=== PATIENT | female | born 1975 | race African-American/Black ===

== ENCOUNTER 2021-04-09 21:16 | Observation (INO) | payer BC, SELFPAY ==
--- NOTE | ~2021-04-09 | CT_ITS ---
EXAMINATION: CTA chest PE protocol DATE: 04/10/2021 03:09 INDICATION: Shortness of breath, COVID 19 positive TECHNIQUE: Computed tomography angiography (CTA) of the chest was performed with 100 mL Omnipaque-350 intravenous contrast timed to evaluate the pulmonary arteries. Coronal maximum intensity projection 3D-reconstructions were created by the technologist. The dose-length product (DLP) was 380.93 mGy-cm. Automated exposure control and iterative reconstruction technique were employed. COMPARISON: None. FINDINGS: The pulmonary arteries are well-opacified. No pulmonary embolism is identified. There are m inimal dependent airspace opacities of the lungs. There is no pleural effusion or pneumothorax. No pa thologically enlarged thoracic lymph nodes are identified. The heart size is normal. IMPRESSION: 1. No pulmonary embolus. 2. Minimal dependent opacities, likely atelectasis. Reviewed, dictated and finalized at location A.
--- NOTE | ~2021-04-09 | XR_ITS ---
EXAMINATION: XR chest 1V portable DATE: 04/09/2021 21:34 INDICATION: Arrhythmia. COVID-19 positive. TECHNIQUE: A single frontal view of the chest was obtained. COMPARISON: Chest 2 views 11/28/2017 FINDINGS: The chest demonstrates clear lungs without pneumonia, pleural effusion, or pneumothorax. Th e heart size is normal. IMPRESSION: 1. No acute cardiopulmonary disease. Reviewed, dictated and finalized at location A.
[2021-04-09 21:20] VITALS: BP 114/80; PULSE 110; RESP 18; TEMP 36.2; O2SAT 99
[2021-04-09 22:20] LABS: Basophils Absolute Auto 0.1 K/mm3 (0.0-0.1); Basophils Percent Auto 0.6 % (0.2-1.2); Eosinophils Absolute Auto 0.2 K/mm3 (0-0.3); Eosinophils Percent Auto 1.6 % (0-4.4); Hematocrit 37.1 % (37.0-47.0); Hemoglobin 12.7 g/dL (12.0-15.0); Immature Granulocyte Absolute 0.03 K/mm3 (0.00-0.031); Immature Granulocyte Percent A 0.3 % (0-0.5); Lymphocytes Absolute Auto 3.28 K/mm3 (0.9-3.2); Lymphocytes Percent Auto 30.9 % (18.3-44.2); Mean Corpuscular HGB Conc 34.2 g/dl (32-36); Mean Corpuscular Hemoglobin 29.5 pg (26-34); Mean Corpuscular Volume 86.3 fl (80-100); Mean Platelet Volume 11.1 fl (7.4-10.4); Monocytes Absolute Auto 0.8 K/mm3 (0.1-0.6); Monocytes Percent Auto 7.6 % (2.6-8.5); Neutrophils Absolute Auto 6.3 K/mm3 (1.3-6.7); Platelet Count Result 297 k/mm3 (150-375); Red Cell Distribution Width 12.1 % (11.5-14.5); White Blood Count 10.6 K/mm3 (4.5-10.0)
[2021-04-09 22:29] LABS: Anion Gap 13 mmol/L (8-16); Blood Urea Nitrogen 17 mg/dL (7-17); Calcium 8.7 mg/dL (8.4-10.2); Carbon Dioxide 23 mmol/L (22-30); Chloride 99 mmol/L (98-107); Estimated CRCL calculation 67 ml/min; Estimated Glomerular Filt Rate > 60; Glucose 144 mg/dL (65-110); Potassium 3.9 mmol/L (3.4-5.0); Sodium 135 mmol/L (137-145)
[2021-04-09 22:31] LABS: INR 0.9; Prothrombin Time 12.2 Seconds (11.1-14.7)
[2021-04-09 22:32] LABS: Partial Thromboplastin Time 21.3 SECONDS (22.3-36.8)
[2021-04-09 22:40] LABS: Troponin I < 0.012 ng/mL (0.000-0.034)
[2021-04-10] VITALS (18 sets, daily range): BP systolic 117–160; BP diastolic 74–110; PULSE 76–99; RESP 12–20; TEMP 36.2–36.8; O2SAT 98–100
--- NOTE | 2021-04-10 01:53 | ED.GENADULT ---
HPI - General Adult General Chief complaint: Arrhythmia/Palpitations Stated complaint: COVID+, c/o irreg heartbeat Time Seen by Provider: 04/10/21 00:59 History of Present Illness HPI narrative: Patient is a 45-year-old female who presents ER with concerns for rapid heart rate. She reports that she had been feeling weak throughout the day which is recurred since being diagnosed with COVID-19 on 04/02/2021. She then used her pulse oximeter and stated that her heart rate was around 190 bpm. She reports a friend came over and checked her heart rate with her own pulse oximeter and picked up a similar number. Patient did not feel as if her heart was racing. She is having no chest pain or pressure. She is not particularly short of breath. Upon arrival here patient's heart rate was not tachycardic and she felt no different. Patient was vaccinated against COVID-19. She is started no new medications. She did receive antibody therapy last week. Related Data Home Medications Medication Instructions Recorded Confirmed gabapentin 04/10/21 semaglutide [Ozempic] mg SUBCUT 04/10/21 Allergies Allergy/AdvReac Type Severity Reaction Status Date / Time No Known Allergies Allergy Verified 04/10/21 00:45 Review of Systems Review of Systems: All systems reviewed & are unremarkable except as noted in HPI and below Constitutional: Constitutional: Denies chills, Reports fatigue and Denies fever(s) ENT: Denies nasal congestion and Denies sore throat Cardiovascular: Cardiovascular: Denies chest pain, Reports rapid heart rate and Denies radiating jaw, neck or arm pain Respiratory: Respiratory: Denies cough, Denies dyspnea and Denies wheezing Gastrointestinal: Gastrointestinal: Denies abdominal pain, Denies nausea and Denies vomiting Musculoskeletal: Musculoskeletal: Denies back pain and Denies muscle cramps PMFSH Past Medical History Medical History (Updated 04/10/21 @ 01:59 by José Miguel Rossi MD) Healthy female adult Surgical History Surgical History (Updated 04/10/21 @ 01:57 by José Miguel Rossi MD) H/O tubal ligation Social History Social History (Updated 04/10/21 @ 01:57 by José Miguel Rossi MD) Smoking status: Never smoker Exam Narrative: GENERAL: Well-appearing, well-nourished, and in no acute distress. HEAD: Normocephalic, atraumatic. EYES: PERRL and EOMI. CHEST: Clear to auscultation. No respiratory distress. HEART: Regular rate and rhythm. Normal peripheral pulses. ABDOMEN: Soft, nontender, nondistended. EXTREMITIES: Normal range of motion. No edema. SKIN: Warm, dry, no rash. NEURO: Alert and oriented x3. PSYCH: Normal mood and affect. Course Vital Signs Vital signs: Vital Signs Temperature 97.2 F L 04/09/21 21:20 Pulse Rate 110 H 04/09/21 21:20 Respiratory Rate 18 04/09/21 21:20 Blood Pressure 114/80 04/09/21 21:20 Pulse Oximetry 99 04/09/21 21:20 Temperature 97.2 F L 04/09/21 21:20 Pulse Rate 83 04/10/21 00:42 Respiratory Rate 14 04/10/21 00:42 Blood Pressure 130/94 H 04/10/21 00:42 Pulse Oximetry 99 04/10/21 00:42 Medical Decision Making Vital Signs Vital Signs: Vital Signs Temperature 97.2 F L 04/09/21 21:20 Pulse Rate 110 H 04/09/21 21:20 Respiratory Rate 18 04/09/21 21:20 Blood Pressure 114/80 04/09/21 21:20 Pulse Oximetry 99 04/09/21 21:20 Temperature 97.2 F L 04/09/21 21:20 Pulse Rate 83 04/10/21 00:42 Respiratory Rate 14 04/10/21 00:42 Blood Pressure 130/94 H 04/10/21 00:42 Pulse Oximetry 99 04/10/21 00:42 Lab Data Result diagrams: 04/09/21 22:13 04/09/21 22:14 Labs: Lab Results 04/09/21 04/09/21 04/09/21 Range/Units 22:13 22:14 22:14 WBC 10.6 H (4.5-10.0) K/mm3 RBC 4.30 (4.2-5.4) M/mm3 Hgb 12.7 (12.0-15.0) g/dL Hct 37.1 (37.0-47.0) % MCV 86.3 (80-100) fl MCH 29.5 (26-34) pg MCHC 34.2 (32-36) g/dl RDW 12.1 (11.5-14.5)
--- NOTE | 2021-04-10 02:22 | ECG_ITS ---
Measurements Intervals [place] Rate: 128 P: -33 WV: 187 QRS: 140 QRSD: 97 T: 153 QT: 301 QTc: 440 Interpretive Statements SUPRAVENTRICULAR TACHYCARDIA LIMB LEAD REVERSAL BASELINE ARTIFACT- I, III, AVL, V1-V4 ABNORMAL ECG Electronically Signed On 04-10-2021 7:32:03 CDT by Jacky Montesinos D.O.
--- NOTE | 2021-04-10 04:30 | PC.NURSE ---
went in to discharge pt, after being taken off monitor and having stepped out for a moment pt stated her apple watch said her heart rate was 189. pt placed back on monitor heart was 189. MELONIE Plata made aware, no new orders at this time.
[2021-04-10] MEDS: METOPROLOL TARTRATE 25 MG TABLET PO ×2 (05:59→21:56)
--- NOTE | 2021-04-10 08:05 | ADMGEN ---
This patient, Melissa Batres, was admitted to [facility] Surg Room 321-01. Patient/family oriented to hospital policies and general routines including ID bracelet, bed and alarms, visiting hours, pain management, procedures, bathroom and other care routines, personal items, smoking policy, room service/diet, and visiting hours. Information on how to activate the Rapid Response Team has been discussed. Patient/Family are encouraged to report perceived risks to care and to ask questions if they do not understand what they are told or what they should do. Report received from JONATHAN Pollack.
--- NOTE | 2021-04-10 08:17 | PM.IMHP ---
H&P: HPI History of Present Illness Date/Time: 04/10/21 08:17 This is a very pleasant 45-year-old woman with past medical history of type 2 diabetes mellitus and diabetic neuropathy, presented to the emergency department last night for evaluation of rapid heart rate. She tells me that she was diagnosed with COVID on 04/02 when she had some headache and sinus pressure. She was previously vaccinated against COVID. On 04/04 did receive monoclonal antibody for COVID. She was also on a short course of steroids (which she finished) and doxycycline which he took for 4 days. She tells me that a pulse oximeter at home and checked her saturation which was in the upper 90s, however it read her heart rate to be around 200. She was not symptomatic and did not feel any palpitations. Per emergency department report, when she arrived to the ED, her initial heart rate was 110 and regular but was as low as 80s. She was to be discharged, however she did spikes tachycardia on the monitor, an EKG was done and showed supraventricular tachycardia. She did a CTA of the chest that ruled PE, but did show minimal dependent opacities possibly atelectasis versus related to her COVID. Cardiology was consulted. Recommended admission for monitoring and echocardiogram. Initiation metoprolol 25 mg b.i.d. which she received the 1st dose of. She responded and currently heart rate is in the 80s when she got to her room and is regular. Chief Complaint: Rapid heart rate Review of Systems Review of Systems: All systems reviewed & are unremarkable except as noted in HPI and below [facility] Past Medical History Medical History Diabetes mellitus type 2, controlled Diabetic neuropathy Healthy female adult Supraventricular tachycardia Surgical History Surgical History H/O tubal ligation Family History Family History Father Cerebrovascular accident Heart attack Hypertension History of open heart surgery Mother Hypertension Diabetes mellitus Social History Social History Smoking status: Never smoker Alcohol intake: current Drinks per week: 1 Substance use: never Substance use type: does not use Spiritual care concerns: No Meds Home Medications and Allergies Home Medications Medication Instructions Recorded Confirmed Type doxycycline hyclate 100 mg PO BID 04/10/21 04/10/21 History gabapentin 200 mg PO HS 04/10/21 04/10/21 History metoprolol tartrate 25 mg PO Q12HR PRN #30 tablet 04/10/21 Rx semaglutide [Ozempic] 0.25 mg SUBCUT WEEKLY 04/10/21 04/10/21 History Allergies Allergy/AdvReac Type Severity Reaction Status Date / Time No Known Allergies Allergy Verified 04/10/21 08:08 Vital Signs Vital Signs - 24 hr 04/09/21 21:20 04/10/21 00:42 04/10/21 01:54 Temperature 97.2 F L Pulse Rate 110 H 83 84 Respiratory Rate 18 14 14 Blood Pressure 114/80 130/94 H 123/92 H Pulse Oximetry 99 99 100 04/10/21 03:11 04/10/21 04:10 04/10/21 05:59 Temperature Pulse Rate 87 99 89 Respiratory Rate 16 20 Blood Pressure 142/93 H 127/96 H Pulse Oximetry 100 99 04/10/21 06:17 04/10/21 06:54 04/10/21 07:35 Temperature Pulse Rate 86 80 80 Respiratory Rate 20 12 16 Blood Pressure 151/100 H 148/106 H 160/110 H Pulse Oximetry 100 99 98 04/10/21 08:11 Temperature Pulse Rate Respiratory Rate 16 Blood Pressure 160/110 H Pulse Oximetry 98 Exam Narrative: Gen: Alert, NAD Abd: Soft, NT, ND Heart: RRR Lungs: CTAB Ext: No lower extremity edema Skin: No abnormality Eyes: anicteric ENT: MMM H&P: Results Labs Labs: Short CBC 04/09/21 Range/Units 22:13 WBC 10.6 H (4.5-10.0) K/mm3 Hgb 12.7 (12.0-15.0) g/dL Hct 37.1 (37.0-47.0) % Plt Count 297 (150-375) k/mm3 BMP
--- NOTE | 2021-04-10 08:26 | ECG_ITS ---
Measurements Intervals [place] Rate: 78 P: 58 [place]: 177 QRS: 56 QRSD: 84 T: 72 QT: 402 QTc: 458 Interpretive Statements SINUS RHYTHM NORMAL ECG Electronically Signed On 04-10-2021 8:58:15 CDT by Jacky Montesinos D.O.
--- NOTE | 2021-04-10 09:50 | PM.CNCAR ---
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 However, we have no documentation of more rapid tachyarrhythmia as reported around 170-200 beats per minute. Patient minimally symptomatic without associated palpitations, near-syncope, syncope, chest pain, or shortness of breath. She had 1 episode 1-2 years ago previously evaluated by Cardiology no other diagnosis or follow-up thereafter. Discussed management options including daily medical therapy with metoprolol or other AV shelton blocking agent to suppress recurrence, observation with p.r.n. metoprolol as well as management strategies including Valsalva maneuvers for termination of arrhythmia. We also discussed referral to electrophysiology for ablation in hopes of cure. Given patient's tolerance and infrequent recurrence she is not interested in ablation or daily medical therapy. Electrolytes stable, troponin negative, TSH pending. SVT certainly could be triggered due to COVID-19 status, however, she had SVT predating COVID. She was educated at length on how to perform Valsalva maneuvers in hopes to terminate arrhythmia at home if recurrence of SVT. She verbalized understanding and agreed with plan of care. All questions answered to her satisfaction. - 2D echocardiogram has been ordered. Offered outpatient follow-up and echo, however, she wishes to stay and have this study completed prior to discharge. We will review with recommendations as appropriate. Her clinical picture and examination are not suggestive of significant valvular heart disease or significant LV dysfunction and I do not expect the results of her Echocardiogram to alter her disposition. Disposition per hospitalist service provided she remains in sinus rhythm without sustained SVT. Follow-up in the office in 1-2 months. Patient verbalized understanding of the above recommendations. (2) COVID-19: Code(s): U07.1 - COVID-19 Status: Acute Assessment and Plan: Reason diagnosis COVID-19. Patient appears clinically stable. Management and disposition per hospitalist service. She is not in respiratory distress. (3) Diabetes mellitus type 2, controlled: Code(s): E11.9 - Type 2 diabetes mellitus without complications Status: Acute Assessment and Plan: Management per hospitalist service. (4) HTN (hypertension): Code(s): I10 - Essential (primary) hypertension Status: Acute Assessment and Plan: BP quite elevated. Recommend initiation of antihypertensive although patient reluctant to take medications. Defer to primary service in this regard for management. History of Present Illness History of Present Illness Consult date/time: Date of service: 04/10/21 09:50 Cardiology consultation at the request of Dr. Alexander of the [facility] service for opinion regarding SVT. Requesting physician: Dorota Alexander MD Consult reason: Other (Supraventricular tachycardia) Reason For Visit: SVT, COVID + Narrative: Patient is a very pleasant 45-year-old Afro-[place] female with past medical history significant for type 2 diabetes mellitus with diabetic neuropathy and remote history of SVT was diagnosed with COVID 04/02/2021 with symptoms of headache and sinus pressure/congestion. It is reported she was previously vaccinated for COVID-19. She had received monoclonal antibodies as well as steroids and antibiotics. Her oxygen saturations have been fine however she also noted heart rate was 200 beats per minute on her Apple watch but did not feel worsening shortness of breath, chest pain, palpitation, and near-syncope, syncope. As such she presented to the emergency department in an
[2021-04-10 10:30] LABS: Glucose Point of Care 119 mg/dl (65-105)
[2021-04-10 12:17] LABS: Glucose Point of Care 169 mg/dl (65-105)
--- NOTE | 2021-04-10 13:00 | ECHO_ITS ---
Patient Info Name: Melissa Batres Age: 45 years : 1975 Gender: Female Ht: 65 in Wt: 218 lbs BSA: 2.17 m2 HR: 90 bpm BP: 128 / 78 mmHg Heart Rhythm: Sinus Rhythm Technical Quality: Good Exam Date: 04/10/2021 3:53 PM Exam Location: [facility] Pulmonary Exam Room: 321 Patient Status: Inpatient Admit Date: 04/10/2021 Staff Ordering Physician: Dorota Alexander MD Campground Caretaker: Karoline Rice RDCS Attending Provider: Dorota Alexander MD Referring Physician: Benjamin ARNOLD; Exam Type: CA echo doppler color flow Study Info Indications - COVID I47.1 - Supraventricular tachycardia Complete two-dimensional, color flow and Doppler transthoracic echocardiogram is performed. Summary 1. Complete two-dimensional, color flow and Doppler transthoracic echocardiogram is performed. 2. Left ventricular chamber dimension is normal. 3. Left ventricular systolic function is normal, estimated at 65-70%. 4. There is no increased left ventricular wall thickness. 5. The left ventricular diastolic function is grade I diastolic dysfunction. 6. There is trace tricuspid valve regurgitation. 7. Unable to estimate PA systolic pressure due to poor spectral resolution of tricuspid regurgitant jet velocity. Left Ventricle Left ventricular chamber dimension is normal. Left ventricular systolic function is normal, estimated at 65-70%. There is no increased left ventricular wall thickness. The left ventricular diastolic function is grade I diastolic dysfunction. Right Ventricle Right ventricular chamber dimension is normal. Right ventricular systolic function is normal. Left Atria Left atrial chamber dimension is normal. Right Atria Right atrial chamber dimension is normal. Aortic Valve The aortic valve is trileaflet. There is no aortic valve stenosis. There is no aortic valve regurgitation. Pulmonic Valve The pulmonic valve is normal. There is trace pulmonic regurgitation. Mitral Valve The mitral valve has thickened leaflets. There is trace mitral valve regurgitation. The mitral valve annulus is mildly calcified. Tricuspid Valve The tricuspid valve leaflets are normal. There is trace tricuspid valve regurgitation. Unable to estimate PA systolic pressure due to poor spectral resolution of tricuspid regurgitant jet velocity. Pericardium/Pleural The pericardium appears normal. There is trivial pericardial effusion. Inferior Vena Cava Normal inferior vena cava with >50% collapse upon inspiration consistent with normal right atrial pressure, 5 mmHg. Aorta The aortic root size at the sinus of Valsalva is normal. Left Ventricular Outflow Tract Name Value Normal LVOT 2D LVOT Diameter 2.0 cm LVOT Doppler LVOT Peak Gradient 5 mmHg LVOT Mean Gradient 3 mmHg LVOT VTI 21 cm LVOT VTI/AV VTI Ratio 0.9 LVOT Stroke Volume 62 ml LVOT CO 13.9 l/min LVOT CI 6.4 l/min/
[2021-04-10 13:14] LABS: Hemoglobin A1C 6.4 % (<5.7)
[2021-04-10] MEDS: DOXYCYCLINE HYCLATE 100 MG TABLET PO ×3 (14:30→21:57)
[2021-04-10] MEDS: ENOXAPARIN 40 MG/0.4 ML SYRINGE SUB-Q (14:30)
[2021-04-10] MEDS: SODIUM CHLORIDE 0.9% IV 1,000 ML 100 ML IV CONT (14:30)
--- NOTE | 2021-04-10 14:41 | PC.NURSE ---
PT abx rescheduled by pharmacy during administration. Tried to undo documentation, but unable to. Pt given only one dose of 100 mg doxycycline at 1430.
[2021-04-10 17:38] LABS: Glucose Point of Care 93 mg/dl (65-105)
[2021-04-10] MEDS: GABAPENTIN 100 MG CAPSULE 200 MG PO (21:56)
[2021-04-10 22:57] LABS: Glucose Point of Care 102 mg/dl (65-105)
[2021-04-11] VITALS (7 sets, daily range): BP systolic 107–144; BP diastolic 70–89; PULSE 71–90; RESP 14–20; TEMP 36.3–36.7; O2SAT 99–100
[2021-04-11] MEDS: SODIUM CHLORIDE 0.9% IV 1,000 ML 100 ML IV CONT (06:32)
[2021-04-11 07:18] LABS: Basophils Percent Auto 0.4 % (0.2-1.2); Eosinophils Absolute Auto 0.2 K/mm3 (0-0.3); Eosinophils Percent Auto 3.2 % (0-4.4); Hematocrit 34.4 % (37.0-47.0); Hemoglobin 11.8 g/dL (12.0-15.0); Immature Granulocyte Absolute 0.02 K/mm3 (0.00-0.031); Immature Granulocyte Percent A 0.3 % (0-0.5); Lymphocytes Absolute Auto 2.17 K/mm3 (0.9-3.2); Lymphocytes Percent Auto 28.6 % (18.3-44.2); Mean Corpuscular HGB Conc 34.3 g/dl (32-36); Mean Corpuscular Hemoglobin 29.2 pg (26-34); Mean Corpuscular Volume 85.1 fl (80-100); Mean Platelet Volume 11.3 fl (7.4-10.4); Monocytes Absolute Auto 0.6 K/mm3 (0.1-0.6); Monocytes Percent Auto 7.5 % (2.6-8.5); Neutrophils Absolute Auto 4.6 K/mm3 (1.3-6.7); Platelet Count Result 290 k/mm3 (150-375); Red Blood Count 4.04 M/mm3 (4.2-5.4); Red Cell Distribution Width 11.8 % (11.5-14.5); White Blood Count 7.6 K/mm3 (4.5-10.0)
[2021-04-11 08:31] LABS: Anion Gap 9 mmol/L (8-16); Blood Urea Nitrogen 11 mg/dL (7-17); Calcium 8.5 mg/dL (8.4-10.2); Carbon Dioxide 25 mmol/L (22-30); Chloride 101 mmol/L (98-107); Estimated CRCL calculation 91 ml/min; Estimated Glomerular Filt Rate > 60; Glucose 122 mg/dL (65-110); Potassium 4.4 mmol/L (3.4-5.0); Sodium 135 mmol/L (137-145)
[2021-04-11 09:37] LABS: Glucose Point of Care 117 mg/dl (65-105)
[2021-04-11] MEDS: ENOXAPARIN 40 MG/0.4 ML SYRINGE SUB-Q (09:41)
[2021-04-11] MEDS: DOXYCYCLINE HYCLATE 100 MG TABLET PO (09:41)
[2021-04-11] MEDS: METOPROLOL TARTRATE 25 MG TABLET PO (09:41)
[2021-04-11 11:59] LABS: Glucose Point of Care 102 mg/dl (65-105)
--- NOTE | 2021-04-11 14:05 | PM.DS ---
DS: Admitting Diagnosis Admitting Diagnosis Supraventricular tachycardia DS: Summary Hospital Course Reason for hospitalization: Chief Complaint: Rapid heart rate Hospital Course: This pleasant 45-year-old lady with past medical history of non insulino dependent diabetes mellitus and diabetic neuropathy, presented to the emergency department on 04/09 for evaluation of rapid heart rate. She had been previously diagnosed with COVID on 04/02 after experiencing some headache and sinus pressure, despite being vaccinated against COVID. On 04/04 she was treated with monoclonal antibody against COVID. She also completed a short course of steroids and doxycycline which she took for 4 days. On a home pulse oximeter she checked her saturation to be in the upper 90s, and her heart rate to be around 200. She was not symptomatic and did not feel any palpitations. Per emergency department report, when she arrived to the ED, her initial heart rate was 110 and regular but was as low as 80s. She was to be discharged, however she did register tachycardia on the monitor, an EKG was done and showed supraventricular tachycardia. She did a CTA of the chest that ruled PE, but did show minimal dependent opacities possibly atelectasis versus related to her COVID. Cardiology was consulted. Recommended admission for monitoring and echocardiogram. She was started on metoprolol 25 mg b.i.d. which she has been tolerating well. She responded and currently heart rate is in the 80s on average and regular. There have been no additional telemetry events overnight. She was evaluated by cardiology this AM and deemed to be safe for discharge with a follow up in 4-6 weeks. Patient doctors with the [facility] group and would gladly follow up with a cardiology belonging to their group. 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 However, we have no documentation of more rapid tachyarrhythmia as reported around 170-200 beats per minute. Patient minimally symptomatic without associated palpitations, near-syncope, syncope, chest pain, or shortness of breath. She had 1 episode 1-2 years ago previously evaluated by Cardiology no other diagnosis or follow-up thereafter. Discussed management options including daily medical therapy with metoprolol or other AV shelton blocking agent to suppress recurrence, observation with p.r.n. metoprolol as well as management strategies including Valsalva maneuvers for termination of arrhythmia. We also discussed referral to electrophysiology for ablation in hopes of cure. Given patient's tolerance and infrequent recurrence she is not interested in ablation or daily medical therapy. Electrolytes stable, troponin negative, TSH pending. SVT certainly could be triggered due to COVID-19 status, however, historically she had SVT predating COVID. She was educated at length on how to perform Valsalva maneuvers in hopes to terminate arrhythmia at home if recurrence of SVT. She verbalized understanding and agreed with plan of care. All questions answered to her satisfaction. Time spent discussing smoking cessation with patient: more than 10 minutes Status at Discharge Functional status at discharge: independent ambulation Overall status at discharge: patient is back to baseline Time Spent with Patient Time attestation: Total time spent providing and/or coordinating discharge services: Time spent: Less than 30 minutes Exam Narrative: Gen: Alert, NAD Abd: Soft, NT, ND Heart: RRR Lungs: CTAB Ext: No lower extremity edema Skin: No abnormality Eyes: anicteric ENT: MMM DS: Data Data Completed and Pending Labs on day of discharge: Labs from last 24 hours 04/11/21 04/11/21 04/11/21 11:36 07:33 06:50 WBC 7.6 RBC 4.04 L Hgb 11.8 L Hct 34.4 L MCV 85.1 MCH 29.2 MCHC 34.3 RDW 11.8 Plt
== END 2021-04-11 17:10 | disposition home or self-care (01) ==
LOC: ANHED 04-10 06:07 → ANH3MEDSUR 04-10 07:15
PROVIDERS: Emergency Medicine; Internal Medicine Nephrology; Admitting Provider Internal Medicine; Emergency Provider Emergency Medicine; Visit Provider Internal Medicine
DX: I47.1 Supraventricular tachycardia (principal); U07.1 COVID-19; E11.40 Type 2 diabetes mellitus with diabetic neuropathy, unspecified; J32.9 Chronic sinusitis, unspecified
CPT/HCPCS: 36415; 71045; 71275; 80048; 82948; 83036; 84443; 84484; 85025; 85610; 85730; 93005; 93306; 96360; 96361; 96372; 99285; A9270; G0378; J1650; J7030; Q9967

== ENCOUNTER 2024-10-22 17:50 | Emergency (ER) | payer BC, SELFPAY ==
--- OUTSIDE RECORDS SUMMARY | 2024-10-22 17:52 | XMS_ITS | CONTINUITY OF CARE DOCUMENT ---
Author Name tracie hodges Address Unknown Organization [facility] Office Address [address] [place] [address] Phone [phone] Care Team Providers Care Academic Affairs Vice President Name Role Phone Sandip WILSON, Mohammad Unavailable [phone] Alphonso ALVAREZ MD, Miles Unavailable Alphonso ALVAREZ MD, Miles Unavailable [phone] PROBLEMS Condition Status Date Provider Notes Palpitations active Romeo Bryson INSURANCE PROVIDERS Payer name Policy type / Coverage type [place] red green party ID [facility]UE [facility] [id number] TREATMENT PLAN Date Name Complete Echo
--- OUTSIDE RECORDS SUMMARY | 2024-10-22 17:53 | XMS_ITS | Patient Health Summary ---
Author Organization [facility] [employer] Address [address] [place] [address] Care Team Providers Care Jeep Driver Name Role Phone Derick Mittal MD Primary Care Provider Note from [facility],non-owned Affiliates and Associated Physician Practices is amultiple site organization consisting of ambulatory clinics and hospital sitesin [place], [place] and [place]. This disclosure is being madepursuant to the Care Everywhere program and may not contain all information available regarding this patient. Last updated 18.[facility] Allergies No known active allergies Medications * Be aware that medications may not be up to date on this document. Alwaysverify current medications with the patient. * gabapentin (NEURONTIN) 100 MG capsule Take 1 (one) capsule by mouth as needed * dapagliflozin propanediol (Farxiga) 5 MG tablet Take 1 (one) tablet by mouth every morning * Insulin Glargine, 1 Unit Dial, (Toujeo SoloStar) pen(Started 01/14/2023) Inject 26 (twenty six) Units subcutaneously every 24 hours * Ozempic, 2 MG/DOSE, 8 MG/3ML pen(Started 10/29/2023) INJECT 2 (TWO) MG SUBCUTANEOUSLY EVERY 7 DAYS 3 refills by 10/28/2024 * metroNIDAZOLE vaginal (Metrogel - Vaginal) 0.75 % vaginal gel(Started 03/21/2024) Insert 1 applicator into the vagina at bedtime Use nightly for 5-7 days Active Problems Problem Noted Date Diagnosed Date Intramural leiomyoma of uterus 08/27/2020 Type 2 diabetes mellitus wit hout complication, without long-term current use of insulin 01/21/2019 Cervical high risk HPV (human papillomavirus) te st positive 01/21/2019 Mild cervical dysplasia 05/03/2012 Immunizations * Covid Moderna primary monovalent 12+ yr 0.5mL(Given 11/01/2020, 10/05/2020) Social History Tobacco Use Types Packs/Day Years Used Date Smoking Tobacco: Never Smokeless Tobacco: Never Tobacco Cessation:Counseling Given: Not Answered Alcohol Use Standard Drinks/Week Comments Yes 0 (1 standard drink = 0.6 oz pur e alcohol) socailly PHQ-2 Answer Date Recorded Patient Health Questionnaire-2 Score 0 08/04/2023 Sex and Gender Information Value Date Recorded Sex Assigned at Not on file Gender Identity Not on file Sexual Orientation Not on file Last Filed Vital Signs Vital Sign Reading Time Taken Comments Blood Pressure 124/80 03/18/2024 9:19 AM CDT Pulse 94 04/17/2023 12:26 PM CDT Temperature 36.6 C (97.9 F) 07/06/2021 4:29 PM PRODUCE ASSISTANT Respiratory Rate 17 04/17/2023 12:26 PM CDT Oxygen Saturation 100% 04/17/2023 12:26 PM CDT Inhaled Oxygen Concentration - - Weight 105.2 kg (232 lb) 04/12/2024 7:16 AM CDT Height 167.6 cm (5' 6 ) 04/12/2024 7:16 AM CDT Body Mass Index 37.45 04/12/2024 7:16 AM CDT Procedures * MAMMO BILAT SCREENING W KAI(Performed 04/12/2024) Performed for Visit for screening mammogram * BACTERIAL VAGINOSIS LATASHA(Performed 03/18/2024) Performed for Vaginal discharge * PAP IG RFLX HPV HR ASCUS RFLX 16/18/45(Performed 03/18/2024) Performed for ASCUS with positive high risk HPV cervical * PAP IG RFLX HPV HR ASCUS RFLX 16/18/45(Performed 08/05/2023) Performed for Pap smear, as part of routine gynecological examination * HPV GENOTYPE 16,18/45 REFLEXED(Performed 08/05/2023) Performed for Pap smear, as part of routine gynecological examination * HPV RFLX 16,18/45 GENOTYPING(Performed 08/05/2023) Performed for Pap smear, as part of routine gynecological examination * COLONOSCOPY SCREEN(Performed 04/17/2023) Performed for Screen for colon cancer * ENDOSCOPY, COLON, SCREENING(Performed 04/17/2023) Performed for Screening for colon cancer * GLUCOSE - POINT OF CARE (AMB) STL(Performed 01/14/2023) Performed for Type 2 diabetes mellitus without complication, without long-term current use of insulin (HCC) * HEMOGLOBIN A1C - POINT OF CARE (AMB)(Performed 01/14/2023) Performed for Type 2 diabetes mellitus without complication, without long-term current use of insulin (HCC) * MAMMO BILAT SCREENING W KAI(Performed 03/21/2022) Performed for Visit for screening mammogram * PAP IG RFLX HPV HR ASCUS RFLX 16/18/45(Performed 03/07/2022) Performed for Pap smear, as part of routine gynecological examination * PAP IG RFLX HPV HR ASCUS RFLX 16/18/45(Performed 07/08/2021) Performed for HGSIL (high grade squamous intraepithelial lesion) on Pap smear of cervix, S/P LEEP (loop electrosurgical excision procedure) * GLUCOSE - POINT OF CARE(Performed 07/07/2021) * GLUCOSE - POINT OF CARE(Performed 07/06/2021) * URINALYSIS REFLEX MICROSCOPIC REFLEX CULTURE(Performed 07/06/2021) * HCG BETA BLOOD QUANTITATIVE(Performed 07/06/2021) * MAGNESIUM BLOOD(Performed 07/06/2021) * COMPREHENSIVE METABOLIC PANEL(Performed 07/06/2021) * CBC W AUTO DIFFERENTIAL(Performed 07/06/2021) * CARDIAC RHYTHM STRIP ORDER(Performed 06/07/2021) * GLUCOSE - POINT OF CARE(Performed 06/06/2021) * PATHOLOGY TISSUE EXAM (STL)(Performed 06/06/2021) Performed for Diagnosis unknown * UT CONIZATION CERVIX,LOOP ELECTRD(Performed 06/06/2021) Performed for R87.613 * GLUCOSE - POINT OF CARE(Performed 06/06/2021) * HCG URINE QUALITATIVE - POCT (IP) INTERFACED(Performed 06/06/2021) * HCG URINE QUAL POCT NOTIFICATION(Performed 06/06/2021) Performed for Pre-op testing * PAP IG RFLX HPV HR ASCUS RFLX 16/18/45(Performed 05/20/2021) Performed for ASCUS with positive high risk HPV cervical * PAP IG LB+HPV APTIMA(Performed 11/19/2020) Performed for HGSIL (high grade squamous intraepithelial lesion) on Pap smear of cervix * PATHOLOGY TISSUE EXAM (STL)(Performed 09/07/2020) Performed for HGSIL (high grade squamous intraepithelial lesion) on Pap smear of cervix * PAP IG RFLX HPV HR ASCUS RFLX 16/18/45(Performed 08/27/2020) Performed for Pap smear, as part of routine gynecological examination * MAMMO BILAT DIAGNOSTIC(Performed 08/27/2020) Performed for Abnormal mammogram * MAMMO BILAT SCREENING(Performed 08/06/2020) Performed for Encounter for screening mammogram for malignant neoplasm of breast * MAMMO BILAT SCREENING(Performed 08/05/2019) Performed for Breast cancer screening * PAP IG RFLX HPV HR ASCUS RFLX 16/18/45(Performed 08/05/2019) Performed for Pap smear, as part of routine gynecological examination * PAP IG LB RFLX HPV HR ASCU RFLX 16,18(Performed 01/21/2019) Performed for ASCUS with positive high risk HPV cervical * PAP IG LB RFLX HPV HR ASCU RFLX 16,18(Performed 04/30/2018) Performed for Pap smear, as part of routine gynecological examination * HPV 16/18 GENOTYPING(Performed 04/30/2018) Performed for Pap smear, as part of routine gynecological examination * HPV DNA PROBE HIGH RISK(Performed 04/30/2018) Performed for Pap smear, as part of routine gynecological examination * MAMMO BILAT SCREENING(Performed 07/06/2017) Performed for Visit for screening mammogram * PAP IG LB + HPV HR(Performed 02/11/2017) Performed for Well female exam with routine gynecological exam * MAMMO BILAT SCREENING(Performed 07/06/2015) Performed for Breast cancer screening * PAP IG LB RFLX HPV HR ASCU RFLX 16,18(Performed 09/19/2014) Performed for Routine gynecological examination * HPV 16/18 GENOTYPING(Performed 09/19/2014) Performed for Routine gynecological examination * HPV DNA PROBE HIGH RISK(Performed 09/19/2014) Performed for Routine gynecological examination * US TRANSVAG ONLY(Performed 05/17/2012) Performed for Pelvic pain in female * PAP IG LB RFLX HPV HR ASCU RFLX 16,18(Performed 05/03/2012) Performed for Other abnormal Papanicolaou smear of cervix and cervical HPV * GROSS + MICRO EXAM(Performed 09/05/2011) * GROSS + MICRO EXAM(Performed 09/05/2011) * CARDIAC RHYTHM STRIP ORDER(Performed 08/27/2011) * GROSS + MICRO EXAM(Performed 08/21/2011) * GROSS + MICRO EXAM(Performed 08/21/2011) * US TRANSVAG ONLY(Performed 08/06/2011) Performed for Menometrorrhagia * PAP IG LB RFLX HPV HR ASCU RFLX 16,18(Performed 08/05/2011) Performed for Routine gynecological examination Results * Mammo Bilat Screening W Kai (04/12/2024 7:32 AM CDT) Only the most recent of2 resultswithin the time period is included. Anatomical Region Laterality Modality Breast Bilateral Mammography 04/12/2024 12:2 7 PM CDT Impressions 04/12/2024 12:34 PM CDT : Annual screening mammography is recommended. OVERALL FINAL ASSESSMENT: BI-RADS Category 1: Negative. > Interpreting Provider: Tirso Chang MD on 04/12/2024 12:34 PM Narrative 04/12/2024 12:34 PM CDT EXAMINATION: BILATERAL DIGITAL SCREENING MAMMOGRAM AND BILATERAL BREAST TOMOSYNTHESIS HISTORY: Screening. COMPARISON: Serial examinations dating back to August 05, 2019. TECHNIQUE: BILATERAL digital breast tomosynthesis (DBT) and synthetic 2D digital mammogram images were obtained (bilateral craniocaudal and mediolateral oblique projections) including computer aided detection (CAD.) BREAST PARENCHYMAL COMPOSITION:Category B: There are scattered areas of fibroglandular density. MAMMOGRAM FINDINGS: There is no suspicious finding in either breast. Derick Mittal MD MAMMO ORDERABLES * (ABNORMAL) BACTERIAL VAGINOSIS LATASHA (03/18/2024 9:36 AM CDT) Atopobium vaginae High - 2(A) Score [facility] ACCOUNT BILL BVAB 2 High - 2(A) Score [facility] ACCOUNT BILL Megashaera High - 2(A) Score [facility] ACCOUNT BILL Comment: Calculate total score by adding the 3 individual bacterial vaginosis (BV) marker scores together. Total score is interpreted as follows: Total score 0-1: Indicates the absence of BV. Total score 2: Indeterminate for BV. Additional clinical data should be evaluated to establish a diagnosis. Total score 3-6: Indicates the presence of BV. Microbiology ENTIRE VAGINA / Unknown 03/18/2024 9:36 AM CDT 03/18/2024 Narrative [facility] ACCOUNT BILL - 03/20/2024 6:07 PM CDT Test(s) 071195- Atopobium vaginae; 901977- BVAB 2; 553655- Megasphaera 1 was developed and its performance characteristics determined by [employer]. It has not been cleared or approved by the Food and Drug Administration. Resulting Agency Comment Lab Testing performed at: [facility] [id number] Klever Huynh MD LAB - [facility] ACCOUNT BILL [address] [place] [address] * PAP IG RFLX HPV HR ASCUS RFLX 16/18/45 (03/18/2024 9:27 AM CDT) Only the most recent of7 resultswithin the time period is included. Diagnosis [facility] ACCOUNT BILL Comment: NEGATIVE FOR INTRAEPITHELIAL LESION OR MALIGNANCY. REACTIVE CELLULAR CHANGES AND/OR REPAIR ARE PRESENT. Specimen Adequacy [facility] ACCOUNT BILL Comment: Satisfactory for evaluation. Endocervical and/or squamous metaplastic cells (endocervical component) are present. Clinician Provided ICD10 [facility] ACCOUNT BILL Comment: R87.610 R87.810 N89.8 Performed by [facility] ACCOUNT BILL Comment:Fara Son, Cytotec hnologist (ASCP) Electronically Signed by [facility] ACCOUNT BILL Comment:Rene Ward MD, Pa thologist Comment . [facility] ACCOUNT BILL Note [facility] ACCOUNT BILL Comment: The Pap smear is a screening test designed to aid in the detection of premalignant and malignant conditions of the uterine cervix. It is not a diagnostic procedure and should not be used as the sole means of detecting cervical cancer. Both false-positive and false-negative reports do occur. . IGLBP CPT Code Automation [facility] ACCOUNT BILL Comment: This liquid based ThinPrep(R) pap test was screened with the use of an image guided system. Note [facility] ACCOUNT BILL Comment: The HPV DNA reflex criteria were not met with this specimen result therefore, no HPV testing was performed. . Pathology/Cytolog y PART OF UTERINE CERVIX / Unknown 03/18/2024 9:27 AM CDT 03/18/2024 Narrative [facility] ACCOUNT BILL - 03/25/2024 3:09 PM CDT Source.............Cervix;Endocervix No. of containers..01 ThinPrep Vial Resulting Agency Comment Lab Testing performed at: [address] [id number] Klever Huynh MD LAB - PATHOLOGY/CYTO LOGY ORDERABLES Performing Organization Address [facility] Co de Phone Number [facility] ACCOUNT BILL [address] [place] [address] * (ABNORMAL) HPV RFLX 16,18/45 GENOTYPING (08/05/2023 9:04 AM PRODUCE ASSISTANT) Human papillomavirus Aptima Positive( A) Negative [facility] ACCOUNT BILL Comment: This nucleic acid amplification test detects fourteen high-risk HPV types (16,18,31,33,35,39,45,51,52,56,58,59,66,68) without differentiation. 08/05/2023 9:04 AM PRODUCE ASSISTANT 08/05/2023 Narrative [facility] ACCOUNT BILL - 08/14/2023 7:10 AM PRODUCE ASSISTANT No. of containers..01 ThinPrep Vial Resulting Agency Comment Lab Testing performed at: [address] [id number] Klever Huynh MD LAB - MICROBIOLOGY O RDERABLES Performing Organization Address City/[facility]/ZIP Co de Phone Number [facility] ACCOUNT BILL [address] [place] [address] * (ABNORMAL) HPV GENOTYPE 16,18/45 REFLEXED (08/05/2023 9:04 AM PRODUCE ASSISTANT) Human papillomavirus Genotype 16 Positive(A) Negative [facility] ACCOUNT BILL Human papillomavirus Genotype 18/45 Negative Negative [facility] ACCOUNT BILL 08/05/2023 9:04 AM PRODUCE ASSISTANT 08/05/2023 Narrative [facility] ACCOUNT BILL - 08/14/2023 7:10 AM PRODUCE ASSISTANT No. of containers..01 ThinPrep Vial Resulting Agency Comment Lab Testing performed at: [facility] [id number] Klever Huynh MD LAB - MICROBIOLOGY O RDERABLES [facility] ACCOUNT BILL [address] [place] [address] * ENDOSCOPY, COLON, SCREENING (04/17/2023 11:28 AM CDT) Report Endoscopy POC _ Patient Name: Melissa Batres Procedure Date: 04/17/2023 11:28 AM Date of : 1975 Admit Type: Outpatient Age: 47 Gender: Female Ethnicity: Not or Race: Black or Attending MD: Morales Roblero MD, [id number] _ Procedure: Colonoscopy Indications: Screening for colorectal malignant neoplasm Providers: Morales Roblero MD (Doctor), Stan Hutton RN Referring MD: Derick Mittal MD (Referring MD) Medicines: Monitored Anesthesia Care Complications: No immediate complications. _ Estimated Blood Loss: Estimated blood loss: none. Procedure: Pre-Anesthesia Assessment: - Prior to the procedure, a History and Physical was performed, and patient medications and allergies were reviewed. The patient's tolerance of previous anesthesia was also reviewed. The risks and benefits of the procedure and the sedation options and risks were discussed with the patient. All questions were answered, and informed consent was obtained. Prior Anticoagulants: The patient has taken no anticoagulant or antiplatelet agents. ASA Grade Assessment: II - A patient with mild systemic disease. After reviewing the risks and benefits, the patient was deemed in satisfactory condition to undergo the procedure. After I obtained informed consent, the scope was passed under direct vision. Throughout the procedure, the patient's blood pressure, pulse, and oxygen saturations were monitored continuously. The Colonoscope was introduced through the anus and advanced to the cecum, identified by appendiceal orifice and ileocecal valve. The colonoscopy was performed without difficulty. The patient tolerated the procedure well. The quality of the bowel preparation was fair. The ileocecal valve, appendiceal orifice, and rectum were photographed. Impression: - Preparation of the colon was fair. - The entire examined colon is normal. - No specimens collected. Findings: The colon (entire examined portion) appeared normal. _ Recommendation: - Written discharge instructions were provided to the patient. - The signs and symptoms of potential delayed complications were discussed with the patient. - Patient has a contact number available for emergencies. - Return to normal activities tomorrow. - Resume previous diet. - Continue present medications. - Repeat colonoscopy in 5 years for screening purposes. Procedure Code(s): --- Professional --- 25572, Colonoscopy, flexible; diagnostic, including collection of specimen(s) by brushing or washing, when performed (separate procedure) --- Technical --- 16027, Colonoscopy, flexible; diagnostic, including collection of specimen(s) by brushing or washing, when performed (separate procedure) Diagnosis Code(s): --- Professional --- Z12.11, Encounter for screening for malignant neoplasm of colon --- Technical --- Z12.11, Encounter for screening for malignant neoplasm of colon CPT copyright 2020 [employer]. All rights reserved. The codes documented in this report are preliminary and upon certified medical records coder review may be revised to meet current compliance requirements. Morales Roblero MD 04/17/2023 12:08:42 PM This report has been signed electronically. Number of Addenda: 0 Note Initiated On: 04/17/2023 11:28 AM [facility] 04/17/2023 11:2 8 AM CDT Morales Roblero MD GI PROCEDURE ORDERAB LES [facility] * GLUCOSE - POINT OF CARE (AMB) STL (01/14/2023) Glucose 78 60 - 100 mg/dL Lot # [id number] Expiration Date 03/25/24 QC Verified Yes Yes Blood BLOOD SPECIMEN / Unknown 01/14/2023 Melissa Keller MD LAB - POINT OF C ARE ORDERABLES * HEMOGLOBIN A1C - POINT OF CARE (HgbA1C) (01/14/2023) Hemoglobin A1c POCT 6.5 % Expiration Date 09/28/24 Lot # [id number] QC Verified Yes Yes Blood BLOOD SPECIMEN / Unknown 01/14/2023 Melissa Keller MD LAB - POINT OF C ARE ORDERABLES * (ABNORMAL) GLUCOSE - POINT OF CARE (07/07/2021 2:36 AM PRODUCE ASSISTANT) Only the most recent of4 resultswithin the time period is included. Glucose WB/POC 142(H) 70 - 106 mg/dL 07/09/2021 1:29 PM PRODUCE ASSISTANT [facility] Specimen Type Cap Fingerstick 2020 1:29 PM PRODUCE ASSISTANT [facility] Blood BLOOD SPECIMEN / Unknown 07/07/2021 2:36 AM PRODUCE ASSISTANT 07/09/2021 1:29 PM PRODUCE ASSISTANT Karl Pacheco MD LAB - POINT OF CARE ORDERABLES [facility] [address] [place] [address] * (ABNORMAL) URINALYSIS REFLEX MICROSCOPIC REFLEX CULTURE (07/06/2021 6:30 PM PRODUCE ASSISTANT) Color UA Straw Straw, Yellow 07/06/2021 6:49 PM PRODUCE ASSISTANT [facility] Clarity UA Clear Clear 07/06/2021 6:49 PM PRODUCE ASSISTANT [facility] Glucose UA 3+(A) Negative 07/06/2021 6:49 PM PRODUCE ASSISTANT [facility] Bilirubin UA Negative Negative 07/06/2021 6:49 PM PRODUCE ASSISTANT [facility] Ketone UA Negative Negative 07/06/2021 6:49 PM PRODUCE ASSISTANT [facility] Specific [place] UA 1.021 1.005 - 1.030 07/06/2021 6:49 PM PRODUCE ASSISTANT [facility] Blood UA Negative Negative 07/06/2021 6:49 PM PRODUCE ASSISTANT [facility] pH UA 6.0 5.0 - 8.0 pH 07/06/2021 6:49 PM PRODUCE ASSISTANT [facility] Protein UA Negative Negative 07/06/2021 6:49 PM PRODUCE ASSISTANT [facility] Urobilinogen UA Negative Negative mg/dL 07/06/2021 6:49 PM PRODUCE ASSISTANT [facility] Nitrite UA Negative Negative 07/06/2021 6:49 PM PRODUCE ASSISTANT [facility] Leukocyte UA Negative Negative 07/06/2021 6:49 PM PRODUCE ASSISTANT [facility] Urine Microscopy Urine microscopy not indicated 07/06/2021 6:49 PM PRODUCE ASSISTANT [facility] Reflex Status Culture not indicated 07/06/2021 6:49 PM PRODUCE ASSISTANT [facility] Urine URINE SPECIMEN OBTAINED BY CLEAN CATCH PROCEDURE / Unknown Collection / Unknown 07/06/2021 6:30 PM PRODUCE ASSISTANT 07/06/2021 6:44 PM PRODUCE ASSISTANT [facility] - 07/06/2021 6:49 PM PRODUCE ASSISTANT Dennise Maier PA-C LAB - URINALYSIS O RDERABLES Performing Organization Address City/State/[facility] Co de Phone Number [facility] [address] [place] [address] * (ABNORMAL) CBC W AUTO DIFFERENTIAL (07/06/2021 4:44 PM PRODUCE ASSISTANT) WBC 11.4(H) 4.4 - 10.7 x10E9/L 07/06/2021 4:53 PM PRODUCE ASSISTANT [facility] WBC Corrected 07/06/2021 4:53 PM [facility] RBC 4.40 3.80 - 5.20 x10E12/L 07/06/2021 4:53 PM [facility] Hemoglobin 12.7 12.0 - 15.6 gm/dL 07/06/2021 4:53 PM [facility] Hematocrit 36.7 35.9 - 45.5 % 07/06/2021 4:53 PM [facility] MCV 83.4 80.7 - 98.3 fl 07/06/2021 4:53 PM [facility] MCH 28.9 26.7 - 34.0 pg 07/06/2021 4:53 PM [facility] MCHC 34.6 30.8 - 35.9 gm/dL 07/06/2021 4:53 PM [facility] Platelet Count 240 153 - 416 x10E9/L 07/06/2021 4:53 PM [facility] RDW-CV 11.8(L) 12.1 - 14.9 % 07/06/2021 4:53 PM [facility] MPV 12.2 9.4 - 12.9 fl 07/06/2021 4:53 PM [facility] Neutrophils % 70.2 44.0 - 73.0 % 07/06/2021 4:53 PM [facility] Lymphocytes % 20.9 20.0 - 43.0 % 07/06/2021 4:53 PM PRODUCE ASSISTANT [facility] Monocytes % 6.5 5.0 - 13.0 % 07/06/2021 4:53 PM [facility] Eosinophils % 1.8 0.0 - 6.0 % 07/06/2021 4:53 PM [facility] Basophils % 0.3 0.0 - 2.0 % 07/06/2021 4:53 PM [facility] Immature Granulocytes 0.3 0 - 1 % 07/06/2021 4:53 PM [facility] Neutrophil Absolute 7.99(H) 2.01 - 7.14 x10E9/L 07/06/2021 4:53 PM [facility] Lymphocytes Absolute 2.38 1.07 - 3.94 x10E9/L 07/06/2021 4:53 PM [facility] Monocytes Absolute 0.74 0.26 - 1.07 x10E9/L 07/06/2021 4:53 PM [facility] Eosinophils Absolute 0.20 0 - 0.47 x10E9/L 07/06/2021 4:53 PM [facility] Basophils Absolute 0.03 0 - 0.08 x10E9/L 07/06/2021 4:53 PM [facility] Immature Granulocytes Absolute 0.03 0.00 - 0.06 x10E9/L 07/06/2021 4:53 PM [facility] nRBC Auto 0 /100 WBC 07/06/2021 4:53 PM [facility] Blood BLOOD SPECIMEN / Unknown Venipuncture / Unknown 07/06/2021 4:44 PM PRODUCE ASSISTANT 07/06/2021 4:49 PM PRODUCE ASSISTANT Dennise Maier PA-C LAB - HEMATOLOGY O RDERABLES [facility] [address] [place] [address] * (ABNORMAL) COMPREHENSIVE METABOLIC PANEL (07/06/2021 4:44 PM PRODUCE ASSISTANT) [facility] Glucose 640(HH) 70 - 105 mg/dL 07/06/2021 5:09 PM [facility] Sodium 128(L) 136 - 145 mmol/L 07/06/2021 5:09 PM [facility] Potassium 4.2 3.5 - 5.1 mmol/L 07/06/2021 5:09 PM [facility] Chloride 97(L) 98 - 107 mmol/L 07/06/2021 5:09 PM [facility] CO2 18(L) 23 - 31 mmol/L 07/06/2021 5:09 PM [facility] Calcium 9.2 8.4 - 10.4 mg/dL 07/06/2021 5:09 PM [facility] Anion Gap 13 8 - 18 mmol/L 07/06/2021 5:09 PM [facility] BUN 13 7 - 18.7 mg/dL 07/06/2021 5:09 PM [facility] Creatinine 1.45(H) 0.57 - 1.11 mg/dL 07/06/2021 5:09 PM [facility] Alkaline Phosphatase 84 40 - 150 U/L 07/06/2021 5:09 PM [facility] ALT 14 0 - 61 U/L 07/06/2021 5:09 PM [facility] AST 14 5 - 34 U/L 07/06/2021 5:09 PM [facility] Protein Total 8.0 6.4 - 8.3 gm/dL 07/06/2021 5:09 PM [facility] Albumin 3.9 3.5 - 5.2 gm/dL 07/06/2021 5:09 PM [facility] Bilirubin Total 0.6 0.2 - 1.2 mg/dL 07/06/2021 5:09 PM [facility] eGFR by MDRD 39(L) >60 mL/min/1.7 3m2 07/06/2021 5:09 PM [facility] eGFR by MDRD 47(L) >60 mL/min/1.7 3m2 07/06/2021 5:09 PM [facility] Blood BLOOD SPECIMEN / Unknown Venipuncture / Unknown 07/06/2021 4:44 PM PRODUCE ASSISTANT 07/06/2021 4:49 PM PRODUCE ASSISTANT Dennise Maier PA-C LAB - CHEMISTRY OR DERABLES [facility] [address] [place] [address] * HCG BETA BLOOD QUANTITATIVE (07/06/2021 4:44 PM PRODUCE ASSISTANT) Pathologist [facility] hCG Quantitative <1.20 mIU/mL 07/06/20 5:13 PM PRODUCE ASSISTANT [facility] Blood BLOOD SPECIMEN / Unknown Venipuncture / Unknown 07/06/2021 4:44 PM PRODUCE ASSISTANT 07/06/2021 4:49 PM PRODUCE ASSISTANT Narrative [facility] - 07/06/2021 5:13 PM PRODUCE ASSISTANT hCG Reference Range, mIU/mL: Males 0-2.0 Non Females 0-6.0 Perimenopausal Females ages 41-55* 0-7.7 Postmenopausal Females age >55* 0-14 Females, Weeks after Last Menstrual Period 0.2-1 week 5-50 1 - 2 weeks 50-500 2 - 3 weeks 100-5000 3 - 4 weeks 500-10,000 4 - 5 weeks 1000-50,000 5 - 6 weeks 10,000-100,000 6 - 8 weeks 15,000-200,000 2 - 3 months 10,000-100,000 Trophoblastic Disease >100,000 *In higher than expected hCG in females > age 40, a serum FSH >20 IU/L makes unlikely. Dennise Maier PA-C LAB - CHEMISTRY OR DERABLES Performing Organization Address [facility] de Phone Number [facility] [address] [place] [address] * MAGNESIUM BLOOD (07/06/2021 4:44 PM PRODUCE ASSISTANT) [facility] Magnesium 1.8 1.6 - 2.6 mg/dL 07/06/2021 5:07 PM PRODUCE ASSISTANT [facility] Blood BLOOD SPECIMEN / Unknown Venipuncture / Unknown 07/06/2021 4:44 PM PRODUCE ASSISTANT 07/06/2021 4:49 PM PRODUCE ASSISTANT Dennise Maier PA-C LAB - CHEMISTRY OR DERABLES Performing Organization Address [facility] Co de Phone Number [facility] [address] [place] [address] * CARDIAC RHYTHM STRIP ORDER (06/07/2021 10:58 PM CDT) Only the most recent of2 resultswithin the time period is included. Narrative 06/07/2021 10:58 PM CDT Ordered by an unspecified provider. Scanned Document CARDIAC SERVICES ORD ERABLES * PATHOLOGY TISSUE EXAM (STL) (06/06/2021 11:14 AM CDT) Only the most recent of2 resultswithin the time period is included. Case Report Surgical Pathology Report Case: [id number] Authorizing Provider: Klever Huynh MD Collected: 06/06/2021 11:14 AM Ordering Location: Received: 06/06/2021 01:25 PM Pathologist: Omar Crabtree MD Specimens: A) - Cervix Conization, Endocervical curretage B) - Cervix Conization, Cone 06/10/2021 12:54 PM [facility] Final Diagnosis A. Endocervix, curettings: - Rare detached superficial fragments of ectocervical tissue with squamous intraepithelial lesion (CAMDEN), not gradable - Endocervical tissue with mucus, blood, and inflammatory cells B. Cervix, LEEP: - High-grade squamous intraepithelial lesion (HGSIL, moderate to severe dysplasia, AILEEN II-III) involving underlying endocervical glands, present at the inked resection margin - Low-grade squamous intraepithelial lesion (LGSIL, mild dysplasia, AILEEN I) extending to the inked resection margin SD/ns 06/10/2021 12:54 PM [facility] Clinical History High-grade squamous intraepithelial lesion (AILEEN II) of cervix. 06/10/2021 12:54 PM CDT [facility] Gross Description Specimen A, received in formalin labeled [place], endocervical curettings are multiple fragments of bell mucoid material, 1.5 x 0.4 x 0.3 cm in aggregate. The specimen is filtered and entirely submitted in A1. Specimen B, received in formalin labeled [place], cervix cone is a 1 x 1 x 0.5 cm unoriented portion of bell mucosa. The possible endocervical resection margin is inked blue and the possible ectocervical resection margin is inked black. The specimen is sectioned and entirely submitted in B1-B2. JI/sherrell 06/10/2021 12:54 PM CDT [facility] Disclaimer All histochemical and/or immunohistochemical results are interpreted with controls that demonstrate appropriate staining reactions before reporting results. Note on use of immunocytochemistry reagents: This test was developed and its performance characteristic determined by [facility], Department of Laboratory Medicine. It has not been cleared or approved by the U.S. Food and Drug Administration (FDA). The FDA has determined that such clearance or approval is not necessary. The test is used for clinical purpose. It should not be regarded as investigational or for research. This laboratory is certified to perform high complexity testing. The performance characteristics of the IHC/MECHE assays have been validated on formalin-fixed paraffin embedded tissues only. The assays have not been validated on decalcified tissues. Results should be interpreted with caution. 06/10/2021 12:54 PM CDT [facility] Embedded Images 06/10/2021 12:54 PM CDT [facility] Pathology/Cytology SPECIMEN FROM LESION OF UTERINE CERVIX OBTAINED BY CONE BIOPSY / Unknown 06/06/2021 11:14 AM CDT 06/06/2021 1:25 PM CDT Comment:Pre-op diagnosis: R87.613 Miscellaneous samples (specimen) SPECIMEN FROM LESION OF UTERINE CERVIX OBTAINED BY CONE BIOPSY / Unknown 06/06/2021 11:14 AM CDT 06/06/2021 1:25 PM CDT Comment:Pre-op diagnosis: R87.613 Klever Huynh MD LAB - PATHOLOGY/CYTO LOGY ORDERABLES [facility][note 3][address] [place] [address] * HCG URINE QUALITATIVE - POCT (IP) INTERFACED (06/06/2021 9:08 AM CDT) HCG Qual Urine Negative Negative 06/06/2021 9:13 AM CDT [facility] Urine URINE / Unknown 06/06/2021 9 :08 AM CDT 06/06/2021 9:13 AM CDT Klever Huynh MD LAB - POINT OF CARE ORDERABLES [facility] [address] [place] [address] * HCG URINE QUAL POCT NOTIFICATION (06/06/2021 9:01 AM CDT) Comment Notification Label Only - See Separate Report 06/06/2021 10:30 AM CDT [facility] Urine URINE / Unknown 06/06/2021 9 :01 AM CDT 06/06/2021 9:02 AM CDT Klever Huynh MD LAB - URINALYSIS ORD ERABLES Performing Organization Address City/[facility]/ZIP Co de Phone Number [facility] [address] [place] [address] * (ABNORMAL) PAP IG LB+HPV APTIMA (11/19/2020 9:52 AM CDT) Diagnosis (A) [facility] ACCOUNT BILL Comment: EPITHELIAL CELL ABNORMALITY. ATYPICAL SQUAMOUS CELLS OF UNDETERMINED SIGNIFICANCE (ASC-US). Specimen Adequacy [facility] ACCOUNT BILL Comment: Satisfactory for evaluation. Endocervical and/or squamous metaplastic cells (endocervical component) are present. Clinician Provided ICD10 [facility] ACCOUNT BILL Comment:R87.613 Performed by [facility] ACCOUNT BILL Comment:Maria Elena Zapata, Cytot echnologist (ASC) Electronically Signed by [facility] ACCOUNT BILL Comment:Kendrick rodriguez MD (Charles), Pathologist Comment . [facility] ACCOUNT BILL Pathologist Provided ICD10 [facility] ACCOUNT BILL Comment:R87.610 Note [facility] ACCOUNT BILL Comment: The Pap smear is a screening test designed to aid in the detection of premalignant and malignant conditions of the uterine cervix. It is not a diagnostic procedure and should not be used as the sole means of detecting cervical cancer. Both false-positive and false-negative reports do occur. . IGLBP CPT Code Automation [facility] ACCOUNT BILL Comment: This liquid based ThinPrep(R) pap test was screened with the use of an image guided system. Human papillomavirus Aptima Positive( A) Negative [facility] ACCOUNT BILL Comment: This nucleic acid amplification test detects fourteen high-risk HPV types (16,18,31,33,35,39,45,51,52,56,58,59,66,68) without differentiation. Pathology/Cytolog y PART OF UTERINE CERVIX / Unknown 11/19/2020 9:52 AM CDT 11/19/2020 Narrative [facility] ACCOUNT BILL - 11/21/2020 1:08 PM CDT Source.............Cervix;Endocervix No. of containers..01 ThinPrep Vial Resulting Agency Comment Lab Testing performed at: [facility] [phone] Klever Huynh MD LAB - PATHOLOGY/CYTO LOGY ORDERABLES Performing Organization Address City/State/[facility] Co de Phone Number [facility] ACCOUNT BILL [address] [place] [address] * MAMMO BILAT DIAGNOSTIC (08/27/2020 9:54 AM PRODUCE ASSISTANT) Anatomical Region Laterality Modality Breast Bilateral Mammography 08/27/2020 10:0 2 AM PRODUCE ASSISTANT Impressions 08/27/2020 10:14 AM PRODUCE ASSISTANT No evidence of malignancy. ASSESSMENT: BI-RADS Category 2: Benign finding(s). RECOMMENDATION: Return to annual bilateral screening mammogram. Findings and recommendation were discussed with the patient by Dr. Ordonez. Thank you for allowing us to participate in the care of your patient. [facility] utilizes [employer] as a reminder system to notify patients of their next recommended mammogram. Dictated by Jose Antonio Ordonez on 08/27/2020 10:05 AM I, Jonathan Hopkins, have personally reviewed the images and I agree with this report. *Reading Radiologist: Jonathan Hopkins on 08/27/2020 at 10:14 AM Narrative 08/27/2020 10:14 AM PRODUCE ASSISTANT EXAMINATION: DIGITAL BILATERAL DIAGNOSTIC MAMMOGRAM, 08/27/2019. TECHNIQUE: Low-dose digital breast tomosynthesis examination was performed with 3D acquisitions and synthetic 2D mammogram using a true lateral view and a spot compression cephalocaudal and mediolateral oblique projections of upper-outer quadrant of each breast. Computer assisted detection was utilized. PRIOR: Bilateral screening mammograms on 08/06/2020, 08/05/2019, and 07/06/2017 HISTORY: 45-year-old woman with focal asymmetry in both breasts on prior screening mammogram, history of prior bilateral breast skin biopsies for squamous cell carcinoma BREAST PARENCHYMAL DENSITY: There are scattered areas of fibroglandular density. FINDINGS: The additional views in both breasts of the upper outer regions demonstrate tissue superimposition without evidence of an underlying suspicious masses, persistence of architectural distortion or suspicious microcalcifications. Klever Huynh MD MAMMO ORDERABLES * MOISES SCREENING DIGITAL IMAGE BILATERAL G0202 (08/06/2020 8:31 AM PRODUCE ASSISTANT) Only the most recent of4 resultswithin the time period is included. Anatomical Region Laterality Modality Breast Bilateral Mammography 08/06/2020 12:0 8 PM PRODUCE ASSISTANT Impressions 08/06/2020 12:22 PM PRODUCE ASSISTANT Questioned bilateral focal asymmetries ASSESSMENT: BIRADS Category 0: Incomplete - Needs additional imaging evaluation. RECOMMENDATION: Bilateral diagnostic mammogram and possible ultrasound Thank you for allowing us to participate in the care of your patient. *Reading Radiologist: Roseline Fari on 08/06/2020 at 12:22 PM Narrative 08/06/2020 12:22 PM PRODUCE ASSISTANT EXAMINATION: Digital screening mammogram on 08/06/2020. Low-dose full-field digital breast tomosynthesis examination was performed with synthetic 2D images and 3D acquisitions. Computer assisted detection was utilized. PRIOR: Multiple prior mammograms, most recently 2019 BREAST PARENCHYMAL DENSITY: There are scattered areas of fibroglandular density. RISK ASSESSMENT CALCULATION: Risk assessment not performed due to COVID precautions FINDINGS: There is a questioned developing focal asymmetry in the upper outer right breast posterior depth on CC slice 40 and MLO slice 36. There is a questioned focal asymmetry in the outer left breast posterior depth on CC slice 19 and MLO slice 35. Klever Huynh MD MAMMO ORDERABLES * PAP IG LB RFLX HPV HR ASCU RFLX 16,18 (01/21/2019 12:24 PM CDT) Only the most recent of5 resultswithin the time period is included. Diagnosis [facility] INSURANCE BILL Comment:NEGATIVE FOR INTRAEP ITHELIAL LESION OR MALIGNANCY. Specimen Adequacy [facility] INSURANCE BILL Comment: Satisfactory for evaluation. Endocervical and/or squamous metaplastic cells (endocervical component) are present. Clinician Provided ICD10 [facility] INSURANCE BILL Comment: R87.610 R87.810 Performed by [facility] INSURANCE BILL Comment:Maye Strar Cytot echnologist (ASCP) Comment . [facility] INSURANCE BILL Note [facility] INSURANCE BILL Comment: The Pap smear is a screening test designed to aid in the detection of premalignant and malignant conditions of the uterine cervix. It is not a diagnostic procedure and should not be used as the sole means of detecting cervical cancer. Both false-positive and false-negative reports do occur. . IGLBP CPT Code Automation [facility] INSURANCE BILL Comment: This liquid based ThinPrep(R) pap test was screened with the use of an image guided system. Note [facility] INSURANCE BILL Comment: The HPV DNA reflex criteria were not met with this specimen result therefore, no HPV testing was performed. . PART OF UTERINE CERVIX / Unknown 01/21/2019 12:24 PM CDT 01/21/2019 Narrative [facility] INSURANCE BILL - 01/25/2019 1:08 PM CDT No. of containers..01 ThinPrep Vial Resulting Agency Comment Lab Testing performed at: [address] [phone] Klever Huynh MD LAB - PATHOLOGY/CYTO LOGY ORDERABLES [facility] INSURANCE BILL [address] [place] [address] * (ABNORMAL) HPV 16/18 GENOTYPING (04/30/2018 1:31 PM CDT) Only the most recent of2 resultswithin the time period is included. Human papillomavirus Genotype 16 Positive(A) Negative [facility] INSURANCE BILL Human papillomavirus Genotype 18 Negative Negative [facility] INSURANCE BILL 04/30/2018 1:31 PM CDT 05/03/2018 Narrative [facility] INSURANCE BILL - 05/07/2018 7:08 PM CDT No. of containers..01 ThinPrep Vial Resulting Agency Comment [facility] [phone] Klever Huynh MD LAB - MICROBIOLOGY O RDPILI Performing Organization Address [facility] de Phone Number [facility] INSURANCE BILL [address] [place] [address] * (ABNORMAL) HPV DNA PROBE HIGH RISK (04/30/2018 1:31 PM CDT) Only the most recent of2 resultswithin the time period is included. Human papillomavirus High Risk Positive( A) Negative [facility] INSURANCE BILL Comment: This high-risk HPV test detects thirteen high-risk types (16/18/31/33/35/39/45/51/52/56/58/59/68) without differentiation. . 04/30/2018 1:31 PM CDT 05/03/2018 Narrative [facility] INSURANCE BILL - 05/07/2018 7:08 PM CDT No. of containers..01 ThinPrep Vial Resulting Agency Comment [facility] [phone] Klever Huynh MD LAB - MICROBIOLOGY O LISA Performing Organization Address [facility] de Phone Number [facility] INSURANCE BILL [address] [place] [address] * (ABNORMAL) PAP IG LB + HPV HR (02/11/2017 2:19 PM CDT) Diagnosis [facility] ACCOUNT BILL Comment:NEGATIVE FOR INTRAEP ITHELIAL LESION AND MALIGNANCY. Specimen Adequacy [facility] ACCOUNT BILL Comment:Satisfactory for you luation. No endocervical component is identified. Clinician Provided ICD10 [facility] ACCOUNT BILL Comment:Z01.419 Performed by [facility] ACCOUNT BILL Comment:Artie Otero , Production Superintendent [employer] (ASCP) Comment . [facility] ACCOUNT BILL Note [facility] ACCOUNT BILL Comment: The Pap smear is a screening test designed to aid in the detection of premalignant and malignant conditions of the uterine cervix. It is not a diagnostic procedure and should not be used as the sole means of detecting cervical cancer. Both false-positive and false-negative reports do occur. . IGLBP CPT Code Automation [facility] ACCOUNT BILL Comment: This liquid based ThinPrep(R) pap test was screened with the use of an image guided system. Human papillomavirus High Risk Positive( A) Negative [facility] ACCOUNT BILL Comment: This high-risk HPV test detects thirteen high-risk types (16/18/31/33/35/39/45/51/52/56/58/59/68) without differentiation. . Pathology/Cytolog y ENTIRE ENDOCERVIX / Unknown 02/11/2017 2:19 PM CDT 02/11/2017 Narrative [facility] ACCOUNT BILL - 02/13/2017 5:10 PM CDT No. of containers..01 CYTYC Thin Prep Vial Resulting Agency Comment [facility] [place] [place] [phone] Klever Huynh MD LAB - PATHOLOGY/CYTO LOGY ORDERABLES [facility] ACCOUNT BILL [address] [place] [address] * US TRANSVAG ONLY (05/17/2012 4:45 PM CDT) Only the most recent of2 resultswithin the time period is included. Anatomical Region Laterality Modality Other Narrative 05/17/2012 4:45 PM CDT Osmin George RDMS 05/17/2012 4:45 PM [facility] ULTRASOUND of FEMALE PELVIS (non-, abdominal and/or endovaginal) Pt. Name: Melissa Avila : 1975 : Exam Date: 05/17/2012 LMP: No LMP recorded. Transabdominal: No Transvaginal: Yes Hormone Therapy: No Reason for Scan: Pelvic pain Uterine orientation: anteverted Endometrial thickness: 4.2 mm. (double thickness, longitudinal view, A andP) Uterine measurements: Length 103.3 mm. Width 78.6 mm. Height 64.8 mm. Endometrial or uterine abnormalities: normal Right Ovary: normal Left Ovary: normal Fluid in Cul de Sac: The cul-de-sac is free and contains no fluid Other: Three small fibroids were seen, all are 2cm or less. Environmental Test Technician: Osmin George RDMS Images will be scanned into the record. Interpreting Physician: Klever Huynh M.D. Procedure Note Osmin eGorge RDMS - 05/17/2012 1:18 PM CDT [facility] ULTRASOUND of FEMALE PELVIS (non-, abdominal and/orendovaginal) Pt. Name: Melissa Avila : 1975 : Exam Date: 05/17/2012 LMP: No LMP recorded. Transabdominal: No Transvaginal: Yes Hormone Therapy: No Reason for Scan: Pelvic pain Uterine orientation: anteverted Endometrial thickness: 4.2 mm. (double thickness, longitudinal view, AandP) Uterine measurements: Length 103.3 mm. Width 78.6 mm. Height 64.8 mm. Endometrial or uterine abnormalities: normal Right Ovary: normal Left Ovary: normal Fluid in Cul de Sac: The cul-de-sac is free and contains no fluid Other: Three small fibroids were seen, all are 2cm or less. Environmental Test Technician: Osmin George RDMS Images will be scanned into the record. Interpreting Physician: Klever Huynh M.D. Klever Huynh MD ORDERABLES * GROSS + MICRO EXAM (09/05/2011 12:00 AM PRODUCE ASSISTANT) Only the most recent of4 resultswithin the time period is included. Result CASE NUMBER [id number] Comment: ORDERING PHYSICIAN KLEVER HUYNH SPECIMEN TYPE Biopsy Date 09/06/2011 Physician Viridiana Huynh Gross Description The specimen is received in one Formalin-filled container labeled with the patient's name, Austin, Melissa, and endometrium . The specimen consists of one bell colored, oval-shaped, soft tissue fragment measuring 0.4 x 0.3 x 0.2 cm. The specimen is entirely submitted in a single cassette. SS/na Microscopic Exam The cervical biopsy shows primarily normal maturation with scattered cells showing evidence of HPV effect. These cells show irregular nuclear chromatin and are surrounded by cleared cytoplasmic zone. There is no evidence of malignancy. GM/na Diagnosis I. Cervix, biopsy -- Koilocytosis GM/na Grinder Set Up Operator Gear Tool na Pathologist Meri Juarez MD CPT code 18159 MISCELLANEOUS SAMPLE S / Unknown 09/05/2011 09/06/2011 8:38 AM PRODUCE ASSISTANT Historical Provider LAB - PATHOLOGY/C YTOLOGY ORDERABLES Care Teams Jeep Driver Relationship Specialty Start Date End Date Derick Mittal MD [address] [place] [address] PCP - General Internal Medicine 03/21/22
--- OUTSIDE RECORDS SUMMARY | 2024-10-22 17:53 | XMS_ITS | Referral Summary ---
Author Organization [facility] Address [address] [place] [address] Care Team Providers Care Director Style Name Role Phone Derick Mittal MD Primary Care Provider Source Comments [facility],non-owned Affiliates and Associated Physician Practices is amultiple site organization consisting of ambulatory clinics and hospital sitesin [place], [place], [place] and [place]. This disclosure is being madepursuant to the Care Everywhere program and may not contain all information available regarding this patient. Last updated 18.[facility] Encounters Date Type Department Care Team Description 09/09/2024 Telephone [facility] Medical [facility] - Endocrinology [address] [place] [address], [address] [address] Melissa Keller MD Medication Prior Auth Request from Last 3 Months Allergies No known active allergies Medications * Be aware that medications may not be up to date on this document. Alwaysverify current medications with the patient. Medication Sig Dispensed Refills Start Date End Date Status gabapentin (NEURONTIN) 100 MG capsule Take 1 (one) capsule by mouth as needed Active dapagliflozin propanediol (Farxiga) 5 MG tablet Take 1 (one) tablet by mouth every morning Active Insulin Glargine, 1 Unit Dial, (Toujeo SoloStar) pen Inject 26 (twenty six) Units subcutaneously every 24 hours 01/14/2023 Active Ozempic, 2 MG/DOSE, 8 MG/3ML pen INJECT 2 (TWO) MG SUBCUTANEOUSLY EVERY 7 DAYS 3 mL 3 10/29/2023 Active metroNIDAZOLE vaginal (Metrogel - Vaginal) 0.75 % vaginal gel Insert 1 applicator into the vagina at bedtime Use nightly for 5-7 days 70 g 03/21/2024 Active Active Problems Patient Care Coordination No te Formatting of this note migh t be different from the original. PT HAS BAD DEBT - NO APPT'S TILL BAL IS PD IN FULL - DB/BP 09/01/12 Problem Noted Date Diagnosed Date Intramural leiomyoma of uterus 08/27/2020 Type 2 diabetes mellitus wit hout complication, without long-term current use of insulin 01/21/2019 Cervical high risk HPV (human papillomavirus) te st positive 01/21/2019 Overview (01/21/2019): HPV 16 pos Mild cervical dysplasia 05/03/2012 Overview (05/03/2012): colpo Aug 2011 - HPV changes Immunizations Name Administration Dates Next Due Delvis Hancock primary monovalent 12+ yr 0.5mL ,10/05/2020 Social History Tobacco Use Types Packs/Day Years [...] 36.6 C (97.9 F) 07/06/2021 4:29 PM INNER LAYER SCRUBBER TENDER Respiratory Rate 17 04/17/2023 12:26 PM CDT Oxygen Saturation 100% 04/17/2023 12:26 PM CDT Inhaled Oxygen Concentration - - Weight 105.2 kg (232 lb) 04/12/2024 7:16 AM CDT Height 167.6 cm (5' 6 ) 04/12/2024 7:16 AM CDT Body Mass Index 37.45 04/12/2024 7:16 AM CDT Functional Status Functional Status Response Date of Assess ment Is person deaf or have serious hearing difficult y? No 04/17/2023 Is person blind or have serious difficulty seein g? No 04/17/2023 Does person have serious dif ficulty walking/climbing stairs? No 04/17/2023 Does person have difficulty dressing/bathing? No 04/17/2023 Does person have difficulty doing errands alone? No 04/17/2023 Cognitive Status Response Date of Assessm ent Does person have difficulty concentrating/remembering/making decisions? No 04/17/2023 Plan of Treatment Not on file Procedures Procedure Name Priority Date/Time Associated Diagnosis Comments MAMMO BILAT SCREENING W KAI Routine 04/12/2024 7:32 AM CDT Visit for screening mammogram HPV GENOTYPE 16,18/45 REFLEXED Routine 08/05/2023 9:04 AM INNER LAYER SCRUBBER TENDER Pap smear, as part of routine gynecological examination ENDOSCOPY, COLON, SCREENING Routine 04/17/2023 11:28 AM CDT Screening for colon cancer HEMOGLOBIN A1C - POINT OF CARE (AMB) Routine 01/14/2023 Type 2 diabetes mellitus without complication, without long-term current use of insulin (HCC) COMPREHENSIVE METABOLIC PANEL STAT 07/06/2021 4:44 PM INNER LAYER SCRUBBER TENDER from Last 3 Months or Most Recently Relevant to Health Maintenance Results * Mammo Bilat Screening W Kai (04/12/2024 7:32 AM CDT) Anatomical Region Laterality Modality Breast Bilateral Mammography [...] Derick Mittal MD MAMMO ORDERABLES * (ABNORMAL) HPV GENOTYPE 16,18/45 REFLEXED (08/05/2023 9:04 AM INNER LAYER SCRUBBER TENDER) Human papillomavirus Genotype 16 Positive(A) Negative [facility] ACCOUNT BILL Human papillomavirus Genotype 18/45 Negative Negative [facility] ACCOUNT BILL 08/05/2023 9:04 AM INNER LAYER SCRUBBER TENDER 08/05/2023 Narrative [facility] ACCOUNT BILL - 08/14/2023 7:10 AM INNER LAYER SCRUBBER TENDER No. of containers..01 ThinPrep Vial Resulting Agency Comment Lab Testing performed at: [facility] [id number] Klever Humphrey MD LAB - MICROBIOLOGY O RDERABLES [facility] ACCOUNT BILL [address] [place] [address] * ENDOSCOPY, COLON, SCREENING (04/17/2023 11:28 AM CDT) Report Endoscopy POC _ Patient Name: Melissa Batres Procedure Date: 04/17/2023 11:28 AM Date of : 1975 Admit Type: Outpatient Age: 47 Gender: Female Ethnicity: Not or Race: Black or Attending MD: Morales Roblero MD, [id number] _ Procedure: Colonoscopy Indications: Screening for colorectal [...] screening purposes. Procedure Code(s): --- Professional --- 70074, Colonoscopy, flexible; diagnostic, including collection of specimen(s) by brushing or washing, when performed (separate procedure) --- Technical --- 01769, Colonoscopy, flexible; diagnostic, including collection of specimen(s) by brushing or washing, when performed (separate procedure) Diagnosis Code(s): --- Professional --- Z12.11, Encounter for screening for malignant neoplasm of colon --- Technical --- Z12.11, Encounter for screening for malignant neoplasm of colon CPT copyright 2020 [employer]. All rights reserved. The codes documented in this report are preliminary and upon sheep boner review may be revised to meet current compliance requirements. Morales Roblero MD 04/17/2023 12:08:42 PM This report has been signed electronically. Number of Addenda: 0 Note Initiated On: 04/17/2023 11:28 AM [facility] END[facility] 04/17/2023 11:2 8 AM CDT Morales Roblero MD GI PROCEDURE ORDERAB LES [facility] ENDOSCOPY * HEMOGLOBIN A1C - POINT OF CARE (HgbA1C) (01/14/2023) Hemoglobin A1c POCT 6.5 % Expiration Date 09/28/24 Lot # [id number] QC Verified Yes Yes Blood BLOOD SPECIMEN / Unknown 01/14/2023 Melissa Keller MD LAB - POINT OF C ARE ORDERABLES * (ABNORMAL) COMPREHENSIVE METABOLIC PANEL (07/06/2021 4:44 PM INNER LAYER SCRUBBER TENDER) Glucose 640(HH) 70 - 105 mg/dL 07/06/2021 5:09 PM [facility] Sodium 128(L) 136 - 145 mmol/L 07/06/2021 5:09 PM [facility] Potassium 4.2 3.5 - 5.1 mmol/L 07/06/2021 5:09 PM [facility] Chloride 97(L) 98 - 107 mmol/L 07/06/2021 5:09 PM [facility] CO2 18(L) 23 - 31 mmol/L 07/06/2021 5:09 PM [facility] Calcium 9.2 8.4 - 10.4 mg/dL 07/06/2021 5:09 PM [facility] Anion Gap 13 8 - 18 mmol/L 07/06/2021 5:09 PM [facility] BUN 13 7 - 18.7 mg/dL 07/06/2021 5:09 PM [facility] Creatinine 1.45(H) 0.57 - 1.11 mg/dL 07/06/2021 5:09 PM [facility] Alkaline Phosphatase 84 40 - 150 U/L 07/06/2021 5:09 PM [facility] ALT 14 0 - 61 U/L 07/06/2021 5:09 PM [facility] AST 14 5 - 34 U/L 07/06/2021 5:09 PM [facility] Protein Total 8.0 6.4 - 8.3 gm/dL 07/06/2021 5:09 PM [facility] Albumin 3.9 3.5 - 5.2 gm/dL 07/06/2021 5:09 PM [facility] Bilirubin Total 0.6 0.2 - 1.2 mg/dL 07/06/2021 5:09 PM [facility] eGFR by MDRD 39(L) >60 mL/min/1.7 3m2 07/06/2021 5:09 PM [facility] eGFR by MDRD 47(L) >60 mL/min/1.7 3m2 07/06/2021 5:09 PM [facility] Blood BLOOD SPECIMEN / Unknown Venipuncture / Unknown 07/06/2021 4:44 PM INNER LAYER SCRUBBER TENDER 07/06/2021 4:49 PM INNER LAYER SCRUBBER TENDER Dennise Maier PA-C LAB - CHEMISTRY OR DERABLES [facility] [address] [place] [address] from Last 3 Months or Most Recently Relevant to Health Maintenance Advance Directives * FULL RESUSCITATION (Latest Code Status on File) Date Activated Date Inactivated Comments 08/20/2011 2:41 PM 08/22/2011 2:48 AM Care Teams Director Style Relationship Specialty Start Date End Date Derick Mtital MD [address] [place] [address] PCP - General Internal Medicine 03/21/22
--- OUTSIDE RECORDS SUMMARY | 2024-10-22 17:53 | XMS_ITS | Clinical Summary ---
Author Organization [facility] [address] [facility] Address [address] [facility] [place] [address] Care Team Providers Care Services Delivery Driver Name Role Phone Fatou Chowdhury Jun TRADE EMBALMER Unavailable [phone] Derick Mittal MD Primary Care Provide r Allergies No known active allergies Medications semaglutide (Ozempic) 0.25 mg or 0.5 mg(2 mg/1.5 mL) pen injector Inject 0.25 mg under the skin once a week 04/20/20 18 Active gabapentin (NEURONTIN) 100 mg capsule Take 1 capsule (100 mg total) by mouth 2 (two) times a day 03/29/20 21 Active metoprolol tartrate (LOPRESSOR) 25 mg immediate release tablet TAKE 1 TABLET BY MOUTH TWICE A DAY 60 tablet 1 07/16/20 21 Active Additional Information Patient not taking.Reported on 09/22/2024 Farxiga 5 mg tablet Take 1 tablet (5 mg total) by mouth daily 07/18/20 21 Active ibuprofen (ADVIL,MOTRIN) 800 mg tablet TAKE 1 TABLET BY MOUTH TWICE A DAY NEEDED FOR PAIN 60 tablet 1 10/12/19 22 Active rosuvastatin (CRESTOR) 10 mg tablet take 1 tablet by oral route every day at night 05/15/20 23 Active valsartan (DIOVAN) 80 mg tablet Take 1 tablet (80 mg total) by mouth daily 08/25/19 25 Active promethazine-D M (PROMETHAZINE- DM) 1.25-3 mg/mL syrup Take 5 mL by mouth every 4 (four) hours as needed for cough 120 mL 09/22/19 25 025 Active predniSONE (DELTASONE) 20 mg tablet Take 2 tablets (40 mg) x2 days then 1 tablet (20mg) x3 days 7 tablet 10/03/19 25 Active fluconazole (DIFLUCAN) 150 mg tablet Take 1 tablet (150 mg total) by mouth as directed Take one tab now. Repeat in 7 days if symptoms persist. 2 tablet 1 12/12/19 22 025 Discontinued nirmatrelvir 300 mg-ritonavir 100 mg (PAXLOVID 300mg-100 mg) tablets,dose pack tablets in a dose pack Take 300 mg nirmatrelvir (2 x 150 mg tablets) with 100 mg ritonavir (1 x 100 mg tablet) with all three tablets taken together by mouth twice daily for 5 days. 30 tablet 09/22/19 25 025 amoxicillin-cl avulanate (AUGMENTIN) 875-125 mg per tablet Take 1 tablet by mouth 2 (two) times a day for 7 days 14 tablet 10/03/19 25 025 fluconazole (DIFLUCAN) 150 mg tablet Take 1 tablet (150 mg total) by mouth once for 1 dose 1 tablet 10/18/19 25 025 Active Problems Problem Noted Date Diagnosed Date Hyperglycemia due to diabetes mellitus 4 Neuropathy due to type 2 diabetes mellitus 09/14 Right rotator cuff tendinitis 09/14/2023 Assessment & Plan (09/14/2023 2:34 PM DIGITAL ACCOUNT SUPERVISOR): Patient has rotator cuff tendinitis of the right shoulder with impingement. She may be developing secondary arthrosis of the joint as well. After reviewing the treatment options she elected undergo a cortisone injection today to the severity of her symptoms. She tolerated the procedure well. Physical therapy was prescribed to help her regain her range of motion. She is return to the office on an as-needed basis. Paroxysmal SVT (supraventricular tachycardia) Overview (06/05/2021): Added automatically from request for surgery [id number] COVID-19 virus infection 04/02/2021 Intramural leiomyoma of uterus 08/27/2020 Type 2 diabetes mellitus wit hout complication, without long-term current use of insulin 01/21/2019 Cervical high risk HPV (human papillomavirus) te st positive 01/21/2019 Overview (09/14/2023): HPV 16 pos Obesity (BMI 30-39.9) 12/20/2017 Assessment & Plan (12/20/2017 9:48 AM CDT): Obesity is unchanged. Discussed the patient's BMI. The BMI is above average; BMI management plan is completed. Mild cervical dysplasia 05/03/2012 Overview (12/20/2017): Overview: colpo Aug 2011 - HPV changes Encounters Date Type Department Care Team Description 10/17/[address] [facility] Binary Thumb [facility] Virtual Care [address] [place] [phone] Bessie Moran NP 10/03/[address] [facility] Binary Thumb [facility] eelusion Care [address] [place] [phone] Bessie Moran NP 09/22/2024 10:45 AM DIGITAL ACCOUNT SUPERVISOR Office Visit [facility] [address] [phone] David Yi NP COVID-19 (Primary Dx) 09/22/2024 Orders Only [facility] Virtual Care [address] [place] [phone] Bessie Moran NP from Last 3 Months Immunizations Immunization Administration Dates Next Due Influenza, Unspecified 06/01/2021 Surgical History Surgery Date Site/Laterality Comments TUBAL LIGATION 08/21/2011 Medical History Medical History Date Comments Obesity Diabetes mellitus (HCC) SVT (supraventricular tachycardia) Family History Medical History Relation Name Comments Heart disease Father Diabetes Mother Diabetes Mother's Sister Relation Name Status Comments Father Mother Mother's Sister Social History Tobacco Use Types Packs/Day Years Used Date Smoking Tobacco: Never Smokeless Tobacco: Never Alcohol Use Standard Drinks/Week Comments Yes 1 (1 standard drink = 0.6 oz pur e alcohol) AUDIT-C Answer Date Recorded Q1: How often do you have a drink containing alc ohol? Never 07/02/2021 Average Number of Drinks Not on file 021 Q3: How often do you have si x or more drinks on one occasion? Never 07/02/2021 Comments No Sex and Gender Information Value Date Recorded Sex Assigned at Not on file Legal Sex Female 7:52 PM DIGITAL ACCOUNT SUPERVISOR Gender Identity Female 06/04/2021 10:01 PM CDT Sexual Orientation Straight 06/04/2021 10 :01 PM CDT Obstetrics History Last Filed Vital Signs Vital Sign Reading Time Taken Comments Blood Pressure 132/86 09/22/2024 9:41 AM DIGITAL ACCOUNT SUPERVISOR Pulse 106 09/22/2024 9:41 AM DIGITAL ACCOUNT SUPERVISOR Temperature 36.9 C (98.4 F) 09/22/2024 9:41 AM DIGITAL ACCOUNT SUPERVISOR Respiratory Rate 20 09/22/2024 9:41 AM DIGITAL ACCOUNT SUPERVISOR Oxygen Saturation 98% 09/22/2024 9:41 AM DIGITAL ACCOUNT SUPERVISOR Inhaled Oxygen Concentration - - Weight 100.7 kg (222 lb) 09/22/2024 9:41 AM DIGITAL ACCOUNT SUPERVISOR Height 167.6 cm (5' 6 ) 09/22/2024 9:41 AM DIGITAL ACCOUNT SUPERVISOR Body Mass Index 35.83 09/22/2024 9:41 AM DIGITAL ACCOUNT SUPERVISOR Plan of Treatment Health Maintenance Due Date Last Done Comments Albumin Creatinine Ratio, Urine 1975 Cervical Cancer Screening 1975 Colon Cancer Screening-Colonoscopy 1975 Depression Screening 1975 Hepatitis C Screening 1975 Dilated Eye Exam 1975 Foot Exam 1975 DTaP/Tdap/Td Vaccine (1 - Tdap) 1985 Hepatitis B Screening 1992 Regular Well Visit/Exam 18-64 1992 Pneumococcal vaccine <65 (1 of 2 - PCV) 1993 Hemoglobin A1C 06/22/2018 12/20/2017 eGFR 06/05/2022 06/05/2021, 12/20/2017 Covid-19 Vaccine (3 - 2023-2 5 season) 2024 11/01/2020, 10/05/2020 Influenza Vaccine (#1) 2024 , 06/01/2021, 05/05/2020, Additional history exists Zoster Vaccine (1 of 2) 2024 Breast Cancer Screening-Mammogram 04/12/2025 04/12/2024, 04/12/2024, 03/21/2022, Additional history exists Lipid Panel 08/25/2025 08/25/2024, 09/0 10/2023, 12/11/2023, Additional history exists Medical Devices Implanted Type Area Senior Analyst Device Identifier Shelf Expiration Date Model / Serial / Lot [employer] [id number] Device Closure Vascade Od5 Fr Femoral Artery - [id number] - [id number] Implanted:Qty : 1 on 07/02/2021 by Devon Macias MD at [facility] Collagen Left: Femoral [employer] 02/25/2023 700-500DX -05U / [id number] 720A / [id number] 720A [employer] [id number] Device Closure Vascade Od5 Fr Femoral Artery - [id number] - [id number] Implanted:Qty : 1 on 07/02/2021 by Devon Macias MD at [facility] Collagen Right: Femoral [employer] 09/02/2022 700-500DX -05U / [id number] [id number] / [id number] 125A [employer] [id number] Device Closure Vascade Od5 Fr Femoral Artery - [id number] - [id number] Implanted:Qty : 1 on 07/02/2021 by Devon Macias MD at [facility] Collagen Left: Femoral [employer] 02/25/2023 700-500DX -05U / [id number] 720A / [id number] 720A [employer] [id number] System 6-12fr Mvp Venous Closure Vascade - [id number] - [id number] Implanted:Qty : 1 on 07/02/2021 by Devon Macias MD at [facility] Collagen Right: Femoral [employer] 04/11/2023 800-612C- 10U / [id number] 07B / [id number] [id number] [employer] [id number] System 6-12fr Mvp Venous Closure Vascade - [id number] - [id number] Implanted:Qty : 1 on 07/02/2021 by Devon Macias MD at [facility] Collagen Right: Femoral [employer] 04/11/2023 800-612C- 10U / [id number] 07B / [id number] [id number] Procedures Procedure Name Priority Date/Time Associated Diagnosis Comments POCT RAPID STREP Routine 09/22/2024 10:0 1 AM DIGITAL ACCOUNT SUPERVISOR COVID-19 POC INFLUENZA A/B, COVID-19 ANTIGEN Routine 09/22/2024 9:58 AM DIGITAL ACCOUNT SUPERVISOR COVID-19 BASIC METABOLIC PANEL Routine 06/05/2021 12:56 PM CDT Paroxysmal SVT (supraventricular tachycardia) POCT LIPID PANEL Routine 05/15/2021 4:26 PM CDT Lipid screening HEMOGLOBIN A1C Routine 12/20/2017 8:00 AM CDT from Last 3 Months or Most Recently Relevant to Health Maintenance Results * POCT rapid strep A (09/22/2024 10:01 AM DIGITAL ACCOUNT SUPERVISOR) Pathologist [facility] [place] Rapid Strep A, POC Negative Negative Swab 09/22/2024 10:0 1 AM DIGITAL ACCOUNT SUPERVISOR David Yi NP POINT OF CARE TEST ORDERABLES F inal Result * (ABNORMAL) POC Influenza A/B, COVID-19 antigen (09/22/2024 9:58 AM DIGITAL ACCOUNT SUPERVISOR) Pathologist [facility] Influenza A Ag, POC Negative Negative [facility] Influenza B Ag, POC Negative Negative [facility] COVID-19 Ag POC Positive(A) Presumptive Negative, Invalid [facility] Nasal 09/22/2024 9:58 AM DIGITAL ACCOUNT SUPERVISOR David Yi NP POINT OF CARE TEST ORDERABLES F inal Result Performing Organization Address [facility] Co de Phone Number [facility] [address] * (ABNORMAL) Basic metabolic panel (06/05/2021 12:56 PM CDT) [facility] Glucose 211(H) 65 - 99 mg/dL [facility] Comment: Fasting reference interval For someone without known diabetes, a glucose value >125 mg/dL indicates that they may have diabetes and this should be confirmed with a follow-up test. BUN 13 7 - 25 mg/dL [facility] Creatinine 0.96 0.50 - 1.10 mg/dL [facility] eGFR NON-AFR. CITIZEN OF [place] 71 > OR = 60 mL/min/1. 73m2 [facility] EGFR 82 > OR = 60 mL/min/1. 73m2 [facility] BUN/creat ratio NOT APPLICABLE 6 - 22 (calc) [facility] Sodium 136 135 - 146 mmol/L [facility] Potassium, pl 4.6 3.5 - 5.3 mmol/L [facility] Chloride 100 98 - 110 mmol/L [facility] CO2 29 20 - 32 mmol/L [facility] Calcium 9.4 8.6 - 10.2 mg/dL [facility] Blood specimen (specimen) 06/05/2021 12:56 PM CDT 06/05/2021 12:56 PM CDT Devon Macias MD LAB BLOOD ORDERABLES Final Result Performing Organization Address City/[facility]/ZIP Co de Phone Number [facility] [address] [address] [place] [phone] * POCT lipid panel (05/15/2021 4:26 PM CDT) Cholesterol, POC 168 mg/dL HDL, POC 60 mg/dL Triglycerides, POC 83 mg/dL LDL Cholesterol POC 91 mg/dL Chol/HDL Ratio, POC 2.8 Non-HDL Cholesterol, POC 108 mg/dL Cholesterol Total, POC 168 mg/dL Capillary blood 05/15/2021 4 :26 PM CDT Melissa Escobar NP POINT OF CARE TEST ORDERABLE S Final Result * (ABNORMAL) Hemoglobin A1c (12/20/2017 8:00 AM CDT) Hgb A1C 10.4(H) 4.0 - 6.0 % [facility] Comment: Interpretive Data Hemoglobin A1c ADA Interpretive Guidelines <7% Glycemia controlled >8% Hyperglycemia, additional action recommended Leigha Immunochemical Method Current interpretive data was last revised on 2016 Testing performed by: [facility], [place] [address] Estimated Average Glucose 252 mg/dL [facility] Comment:Testing performed by : [facility], [place] [address] Blood specimen (specimen) 12/20/2017 8:00 AM CDT 12/20/2017 2:05 PM CDT Narrative [facility] - 12/20/2017 2:30 PM CDT Bessie Moran NP LAB BLOOD ORDERABLES Rossy l Result [facility] [address] Department of Laboratories [place], [place] [phone] from Last 3 Months or Most Recently Relevant to Health Maintenance Additional Health Concerns Infection Onset Date Last Indicated COVID: Recovered Comment:Added based on recent COVID infection. 10/02/2024 025 Insurance [facility] Care Teams Services Delivery Driver Relationship Specialty Start Date End Date Derick Mittal MD [facility] [place] [address] PCP - General Internal Medicine 08/01/21 Fatou Chowdhury NP Nurse Practitioner Cardiology 07/02/21
--- OUTSIDE RECORDS SUMMARY | 2024-10-22 17:53 | XMS_ITS | Referral Summary ---
Author Organization [facility] [address] [facility] Address [address] [facility] [place] [address] Care Team Providers Care Manufacturing Supervisor Name Role Phone Fatou Chowdhury X RAY SERVICE TECHNICIAN Unavailable Derick Mittal MD Primary Care Provide r Encounters Date Type Department Care Team Description 10/17/2024 Orders Only [facility] Virtual Care [address] [place] [phone] Bessie Moran NP 10/03/2024 Orders Only [facility] Virtual Care [address] [place] [address] [phone] Bessie Moran NP 09/22/2024 Orders Only [facility] Virtual Care [address] [place] [address] [phone] Bessie Moran NP 09/22/2024 10:45 AM PULMONARY PHYSICAL THERAPIST Office Visit [facility] Con[facility]ient Care at [address] [phone] David Yi NP COVID-19 (Primary Dx) from Last 3 Months Allergies No known active allergies Medications semaglutide [...] 09/14/2023 Assessment & Plan (09/14/2023 2:34 PM PULMONARY PHYSICAL THERAPIST): Patient has rotator cuff tendinitis of the [...] (06/05/2021): Added automatically from request for surgery [id number] COVID-19 virus infection 04/02/2021 Intramural leiomyoma of [...] Overview: colpo Aug 2011 - HPV changes Immunizations Immunization Administration Dates Next Due Influenza, Unspecified 06/01/2021 Social History Tobacco Use Types Packs/Day Years [...] on file Legal Sex Female 7:52 PM PULMONARY PHYSICAL THERAPIST Gender Identity Female 06/04/2021 10:01 PM CDT Sexual Orientation Straight 06/04/2021 10 :01 PM CDT Last Filed Vital Signs Vital Sign Reading Time Taken Comments Blood Pressure 132/86 09/22/2024 9:41 AM PULMONARY PHYSICAL THERAPIST Pulse 106 09/22/2024 9:41 AM PULMONARY PHYSICAL THERAPIST Temperature 36.9 C (98.4 F) 09/22/2024 9:41 AM PULMONARY PHYSICAL THERAPIST Respiratory Rate 20 09/22/2024 9:41 AM PULMONARY PHYSICAL THERAPIST Oxygen Saturation 98% 09/22/2024 9:41 AM PULMONARY PHYSICAL THERAPIST Inhaled Oxygen Concentration - - Weight 100.7 kg (222 lb) 09/22/2024 9:41 AM PULMONARY PHYSICAL THERAPIST Height 167.6 cm (5' 6 ) 09/22/2024 9:41 AM PULMONARY PHYSICAL THERAPIST Body Mass Index 35.83 09/22/2024 9:41 AM PULMONARY PHYSICAL THERAPIST Plan of Treatment Not on file Medical Devices Implanted Type Area Didactic Instructor Device Identifier Shelf Expiration Date Model / Serial / Lot [employer] [id number] Device Closure Vascade Od5 Fr Femoral Artery - [id number] - [id number] Implanted:Qty : 1 on 07/02/2021 by Devon Macias MD at [facility] Collagen Left: Femoral [employer] 02/25/2023 700-500DX -05U / [id number] 720A / [id number] 720A [employer] [id number] Device Closure Vascade Od5 Fr Femoral Artery - [id number] - [id number] Implanted:Qty : 1 on 07/02/2021 by Devon Macias MD at [facility] Collagen Right: Femoral [employer] 09/02/2022 700-500DX -05U / [id number] 125A / [id number] 125A [employer] [id number] Device Closure Vascade Od5 Fr Femoral Artery - [id number] - [id number] Implanted:Qty : 1 on 07/02/2021 by Devon Macias MD at [facility] Collagen Left: Femoral [employer] 02/25/2023 700-500DX -05U / [id number] 720A / [id number] 720A [employer] [id number] System 6-12fr Mvp Venous Closure Vascade - [id number] - [id number] Implanted:Qty : 1 on 07/02/2021 by Devon Macias MD at [facility] Collagen Right: Femoral [employer] 04/11/2023 800-612C- 10U / [id number] 07B / [id number] [id number] [employer] [id number] System 6-12fr Mvp Venous Closure Vascade - [id number] - [id number] Implanted:Qty : 1 on 07/02/2021 by Devon Macias MD at [facility] Collagen Right: Femoral [employer] 04/11/2023 800-612C- 10U / [id number] 07B / [id number] 07B Procedures Procedure Name Priority Date/Time Associated Diagnosis Comments POCT RAPID STREP Routine 09/22/2024 10:0 1 AM PULMONARY PHYSICAL THERAPIST COVID-19 POC INFLUENZA A/B, COVID-19 ANTIGEN Routine 09/22/2024 9:58 AM PULMONARY PHYSICAL THERAPIST COVID-19 BASIC METABOLIC PANEL Routine 06/05/2021 12:56 PM CDT Paroxysmal SVT (supraventricular tachycardia) POCT LIPID PANEL Routine 05/15/2021 4:26 PM CDT Lipid screening HEMOGLOBIN A1C Routine 12/20/2017 8:00 AM CDT from Last 3 Months or Most Recently Relevant to Health Maintenance Results * POCT rapid strep A (09/22/2024 10:01 AM PULMONARY PHYSICAL THERAPIST) Pathologist [facility] Rapid Strep A, POC Negative Negative Swab 09/22/2024 10:0 1 AM PULMONARY PHYSICAL THERAPIST David Yi X RAY SERVICE TECHNICIAN POINT OF CARE TEST ORDERABLES F inal Result * (ABNORMAL) POC Influenza A/B, COVID-19 antigen (09/22/2024 9:58 AM PULMONARY PHYSICAL THERAPIST) Pathologist [facility] Influenza A Ag, POC Negative Negative [facility] Influenza B Ag, POC Negative Negative [facility] COVID-19 Ag POC Positive(A) Presumptive Negative, Invalid [facility] Nasal 09/22/2024 9:58 AM PULMONARY PHYSICAL THERAPIST David Yi POINT OF CARE TEST ORDERABLES F inal Result Performing Organization Address City/State/[facility] Co de Phone Number [facility] [address] [place] [address] * (ABNORMAL) Basic metabolic panel (06/05/2021 12:56 PM CDT) Pathologist [facility] Glucose 211(H) 65 - 99 mg/dL [facility] Comment: Fasting reference interval For someone without known diabetes, a glucose value >125 mg/dL indicates that they may have diabetes and this should be confirmed with a follow-up test. BUN 13 7 - 25 mg/dL [facility] Creatinine 0.96 0.50 - 1.10 mg/dL [facility] eGFR NON-AFR. LUXEMBOURGER 71 > OR = 60 mL/min/1. 73m2 [facility] EGFR 82 > OR = 60 mL/min/1. 73m2 [facility] BUN/creat ratio NOT APPLICABLE 6 - 22 (calc) [facility] Sodium 136 135 - 146 mmol/L [facility] Potassium, pl 4.6 3.5 - 5.3 mmol/L [facility] Chloride 100 98 - 110 mmol/L [facility] CO2 29 20 - 32 mmol/L [facility] Calcium 9.4 8.6 - 10.2 mg/dL [facility] Blood specimen (specimen) 06/05/2021 12:56 PM CDT 06/05/2021 12:56 PM CDT Devon Macias MD LAB BLOOD ORDERABLES Final Result [facility] [address] [place] [phone] * POCT lipid panel (05/15/2021 4:26 PM [...] A1C 10.4(H) 4.0 - 6.0 % GUSTAVO EDWARDS Comment: Interpretive Data Hemoglobin A1c ADA Interpretive Guidelines <7% Glycemia controlled >8% Hyperglycemia, additional action recommended Leigha Immunochemical Method Current interpretive data was last revised on 2016 Testing performed by: [facility], [place] [address] Estimated Average Glucose 252 mg/dL GUSTAVO Comment:Testing performed by : [facility], [place] [address] Blood specimen (specimen) 12/20/2017 8:00 AM CDT 12/20/2017 2:05 PM CDT Narrative GUSTAVO EDWADRS - 12/20/2017 2:30 PM CDT Bessie Moran NP LAB BLOOD ORDERAB[place] [address] [address] [place] [address] from Last 3 Months or Most Recently Relevant to Health Maintenance Additional Health Concerns Infection Onset Date Last Indicated COVID: Recovered Comment:Added based on recent COVID infection. 10/02/2024 025 Insurance [facility] Care Teams Manufacturing Supervisor Relationship Specialty Start Date End Date Derick Mittal MD [address] [place] [address] PCP - General Internal Medicine 08/01/21 Fatou Chowdhury NP Nurse Practitioner Cardiology 07/02/21
--- OUTSIDE RECORDS SUMMARY | 2024-10-22 17:53 | XMS_ITS | Continuity of Care Document ---
Author Organization [employer] Address [address] [place] [address] Phone Care Team Providers Care Vocational Education Professional Name Role Phone Alphonso II Miles WALKER Unavailable Unavailable Allergies, Adverse Reactions, Alerts Substance Reaction Status Criticality No Known Allergies Active No Inform ation Medications Medication Instructions Dosage Effective Dates (start - stop) Status Comments valsartan 80 mg tablet take 1 tablet by oral route every day 80 MG - Active Mounjaro 7.5 mg/0.5 mL subcutaneous pen injector inject (7.5MG) by subcutaneous route every week 7.5 MG - Active Farxiga 10 mg tablet take 1 tablet by or al route every day in the morning 10 MG - Active acetaminophen 500 mg tablet take 2 tablet by oral route every 8 hours as needed 1000 MG - Active Basaglar KwikPen U-100 Insulin 100 unit/mL (3 mL) subcutaneous inject 26 unit by subcutaneous route every evening 26 unit - Active rosuvastatin 10 mg tablet take 1 tablet by oral route every day at night - Active Pen Needle 31 gauge x 16 Inject 20 u sq daily - Active Vitamin D2 1,250 mcg (50,000 unit) capsule Take one capsule PO Q week - Active Microlet Lancet Check blood sugars twice daily - Active Contour Next Test Strips Monitor blood sugars twice daily - Active MOUNJARO 5 MG/0.5 ML PEN INJECT 5 MG SUBCUTANEOUSLY WEEKLY - No Longer Active valsartan 40 mg tablet take 1 tablet by oral route every day 40 MG - No Longer Active gabapentin 300 mg capsule take 1 capsule by oral route 3 times every day 300 MG - No Longer Active Procedures Procedure Date FALL RISK ASSESSMENT DOC'D PRES/ABSN URINE INCON ASSESS Pt inelig neg scrn depres GENERAL HEALTH PANEL CBC, INC PLATELETS AND DIFFERENTIAL COMPREHEN METABOLIC PANEL CMP HEMOGLOBIN A1C HGA1C, GLYCO LIPID PANEL MICROALBUMIN, QN (URINE) CREATININE, (U-R) THYROID STIMULATION HORMONE(TSH) 2024 VITAMIN D, 25-HYDROXY ROUTINE VENIPUNCTURE PREVENTATIVE-EST: 40-64 BODY MASS INDEX DOCD SYST BP >= 140 MM HG6 IT DIAST BP 80-89 MM HG FALL RISK ASSESSMENT DOC'D PRES/ABSN URINE INCON ASSESS Pt inelig neg scrn depres OFFICE [id number] BODY MASS INDEX DOCD SYST BP >= 140 MM HG6 IT DIAST BP >= 90 MM HG FALL RISK ASSESSMENT DOC'D PRES/ABSN URINE INCON ASSESS Pt inelig neg scrn depres HEMOGLOBIN A1C HGA1C, GLYCO LIPID PANEL VITAMIN D, 25-HYDROXY ROUTINE VENIPUNCTURE PREVENTATIVE-EST: 40-64 BODY MASS INDEX DOCD SYST BP GE 130 - 139MM HG DIAST BP 80-89 MM HG FALL RISK ASSESSMENT DOC'D PRES/ABSN URINE INCON ASSESS Pt inelig neg scrn depres OFFICE [id number] BODY MASS INDEX DOCD SYST BP GE 130 - 139MM HG DIAST BP 80-89 MM HG C-REACTIVE PROTEIN (CRP) GENERAL HEALTH PANEL HEMOGLOBIN A1C HGA1C, GLYCO LIPASE LIPID PANEL MICROALBUMIN, QN (URINE) CREATININE, (U-R) RBC SED RATE, AUTOMATED ROUTINE VENIPUNCTURE FALL RISK ASSESSMENT DOC'D PRES/ABSN URINE INCON ASSESS IMMUN ADMIN (INC PERCUTANEOUS) SINGLE, F IRST INJ FLU VACC 4 ALVARADO 0.5mL DOSAGE OFFICE [id number] BODY MASS INDEX DOCD SYST BP LT 130 MM HG DIAST BP 80-89 MM HG FALL RISK ASSESSMENT DOC'D PRES/ABSN URINE INCON ASSESS Pt inelig neg scrn depres GENERAL HEALTH PANEL HEMOGLOBIN A1C HGA1C, GLYCO LIPID PANEL ROUTINE VENIPUNCTURE OFFICE [id number]-[id number] BODY MASS INDEX DOCD SYST BP LT 130 MM HG DIAST BP < 80 MM HG FALL RISK ASSESSMENT DOC'D PRES/ABSN URINE INCON ASSESS Pt inelig neg scrn depres OFFICE [id number] BODY MASS INDEX DOCD SYST BP LT 130 MM HG DIAST BP 80-89 MM HG FALL RISK ASSESSMENT DOC'D PRES/ABSN URINE INCON ASSESS Pt inelig neg scrn depres OFFICE [id number]-[id number] BODY MASS INDEX DOCD SYST BP LT 130 MM HG DIAST BP >= 90 MM HG ROUTINE VENIPUNCTURE FALL RISK ASSESSMENT DOC'D PRES/ABSN URINE INCON ASSESS Pt inelig neg scrn depres OFFICE TYRIJ-JXA-IEHINIRY BODY MASS INDEX DOCD SYST BP LT 130 MM HG DIAST BP 80-89 MM HG Pt inelig neg scrn depres FALL RISK ASSESSMENT DOC'D PRES/ABSN URINE INCON ASSESS OFFICE HNCHU-AMO-[id number] BODY MASS INDEX DOCD SYST BP LT 130 MM HG DIAST BP < 80 MM HG FALL RISK ASSESSMENT DOC'D PRES/ABSN URINE INCON ASSESS Pt inelig neg scrn depres OFFICE SUZXT-QWD-[id number] BODY MASS INDEX DOCD SYST BP LT 130 MM HG DIAST BP 80-89 MM HG FALL RISK ASSESSMENT DOC'D PRES/ABSN URINE INCON ASSESS Pt inelig neg scrn depres CBC, INC PLATELETS, NO DIFFERENTIAL COMPREHEN METABOLIC PANEL CMP HEMOGLOBIN A1C HGA1C, GLYCO LIPID PANEL MICROALBUMIN, QN (URINE) CREATININE, (U-R) THYROID STIMULATION HORMONE(TSH) 2021 ROUTINE VENIPUNCTURE OFFICE [id number]-[id number] BODY MASS INDEX DOCD SYST BP LT 130 MM HG DIAST BP < 80 MM HG NUTRITIONAL THERAPY; INITIAL ASSESSMENT AND INTERVENTION, INDIVIDUAL, EACH 15 NV Pt inelig neg scrn depres FALL RISK ASSESSMENT DOC'D PRES/ABSN URINE INCON ASSESS OFFICE [id number]-[id number]-[id number] BODY MASS INDEX DOCD SYST BP LT 130 MM HG DIAST BP < 80 MM HG TELEPHONE E&M SERVICE BY A PHYSICIAN;5-1 0 MINUTES OF MEDICAL DISCUSSION SYST BP GE 130 - 139MM HG DIAST BP 80-89 MM HG Pt inelig neg scrn depres FALL RISK ASSESSMENT DOC'D PRES/ABSN URINE INCON ASSESS OFFICE [id number]-XIH-[id number] BODY MASS INDEX DOCD SYST BP GE 130 - 139MM HG DIAST BP 80-89 MM HG FALL RISK ASSESSMENT DOC'D PRES/ABSN URINE INCON ASSESS MICROALBUMIN, QN (URINE) CREATININE, (U-R) VITAMIN D, 25-HYDROXY ROUTINE VENIPUNCTURE OFFICE JAHIB-PNO-NOFSETLI BODY MASS INDEX DOCD SYST BP LT 130 MM HG DIAST BP >= 90 MM HG Pt inelig neg scrn depres FALL RISK ASSESSMENT DOC'D PRES/ABSN URINE INCON ASSESS CBC, INC PLATELETS, NO DIFFERENTIAL COMPREHEN METABOLIC PANEL CMP HEMOGLOBIN A1C HGA1C, GLYCO LIPID PANEL THYROID STIMULATION HORMONE(TSH) 2020 ROUTINE VENIPUNCTURE OFFICE [id number]-TOW-[id number] BODY MASS INDEX DOCD SYST BP LT 130 MM HG DIAST BP < 80 MM HG Pt inelig neg scrn depres FALL RISK ASSESSMENT DOC'D PRES/ABSN URINE INCON ASSESS OFFICE GFZXZ-[id number] BODY MASS INDEX DOCD SYST BP LT 130 MM HG DIAST BP >= 90 MM HG FALL RISK ASSESSMENT DOC'D PRES/ABSN URINE INCON ASSESS Pt inelig neg scrn depres OFFICE NPLUX-EUK-RHATFOT BODY MASS INDEX DOCD SYST BP GE 130 - 139MM HG DIAST BP 80-89 MM HG FALL RISK ASSESSMENT DOC'D PRES/ABSN URINE INCON ASSESS Pt inelig neg scrn depres HEMOGLOBIN A1C HGA1C, GLYCO ROUTINE VENIPUNCTURE EKG (ELECTROCARDIOGRAM) OFFICE IJFJP-OPU-FNUGUBVR BODY MASS INDEX DOCD SYST BP LT 130 MM HG DIAST BP < 80 MM HG FALL RISK ASSESSMENT DOC'D PRES/ABSN URINE INCON ASSESS Pt inelig neg scrn depres CBC, INC PLATELETS, NO DIFFERENTIAL COMPREHEN METABOLIC PANEL CMP 0 HEMOGLOBIN A1C HGA1C, GLYCO LIPID PANEL MICROALBUMIN, QN (URINE) CREATININE, (U-R) THYROID STIMULATION HORMONE(TSH) 2019 ROUTINE VENIPUNCTURE OFFICE [id number] BODY MASS INDEX DOCD SYST BP LT 130 MM HG DIAST BP < 80 MM HG FALL PLAN OF CARE DOC'D URINE INCON PLAN DOC'D PRES/ABSN URINE INCON ASSESS BODY MASS INDEX DOCD SYST BP LT 130 MM HG DIAST BP 80-89 MM HG Pt inelig neg scrn depres HEMOGLOBIN A1C HGA1C, GLYCO MICROALBUMIN, QN (URINE) CREATININE, (U-R) ROUTINE VENIPUNCTURE OFFICE HKRMP-JYQ-[id number] BODY MASS INDEX DOCD SYST BP GE 130 - 139MM HG DIAST BP >= 90 MM HG Results Test Name Date and Time Measure Units Reference Range Abnormal Flag Status Comments Panel Description: Comprehensive Metabolic Rossy l Sodium 2024 14:24:0 2 139 mmol/L 135-145 Final Performed by:T OS-95 (532) Potassium 2024 14:24:0 2 4.7 mmol/L 3.5-5.3 Final Performed by:T OS-95 (532) Chloride 2024 14:24:0 2 104 mmol/L 98-107 Final Performed by:T OS-95 (532) CO2 2024 14:24:0 2 25 mEq/L 19-30 Final Performed by:T OS-95 (532) Glucose 2024 14:24:0 2 71 mg/dL 65-99 Final Performed by:T OS-95 (532) BUN 2024 14:24:0 2 14 mg/dL 9-20 Final Performed by:T OS-95 (532) Creatinine 2024 14:24:0 2 0.83 mg/dL 0.60-1.10 Final Performed by:T OS-95 (532) BUN/Crea 2024 14:24:0 2 17 Ratio 6-25 Final Performed by:T OS-95 (532) Calcium 2024 14:24:0 2 9.9 mg/dL 8.6-10.4 Final Performed by:T OS-Biodel (532) Albumin 2024 14:24:0 2 4.5 g/dL 3.5-5.1 Final Performed by:T OS-Biodel (532) Protein, T 2024 14:24:0 2 8.9 g/dL 6.3-8.4 H Final Performed by:T OS-Biodel (532) Globulin 2024 14:24:0 2 4.4 Calc 1.4-3.7 H Final Performed by:T OS-Biodel (532) A/G 2024 14:24:0 2 1.0 Ratio 0.8-2.0 Final Performed by:T OS-Biodel (532) Bilirubin, T 2024 14:24:0 2 0.4 mg/dL 0.2-1.3 Final Performed by:T Funny Or Die-Biodel (532) Alk Phos 2024 14:24:0 2 106 U/L 38-126 Final Performed by:T Funny Or Die-Biodel (532) ALT 2024 14:24:0 2 16 U/L 0-32 Final Performed by:T Funny Or Die-Biodel (532) AST 2024 14:24:0 2 23 U/L 10-36 Final Performed by:T Funny Or Die-Biodel (532) eGFR 2024 14:24:0 2 86 mL/min/ 1.73m2 >60 Final CKD-EPI Equation (2020)Performed by:Razient-Biodel (532) Panel Description: Hemoglobin A1c/Hemoglobin.tot al in Blood Final % HgA1c 2024 14:24:0 2 5.7 % 0.0-5.6 H Final 5.6% or less - Normal range5.7-6.4% - Pre-diabetes6.5% or greater - Consistent with diabetesPerformed by:TOS-95 (532) eAG 2024 14:24:0 2 117 mg/dL Final Performed by:T Funny Or Die-Biodel (532) Panel Description: Thyrotrop in [Units/volume] in Serum or Plasma by Detection limit <= 0.05 mIU/L Final TSH 2024 14:24:0 2 1.87 uIU/mL 0.47-4.68 Final Biotin supplem ent use can result in falsely low levels of TSH. Biotin should be discontinued at least 2 days before testing.Performed by:TOS-95 (532) Panel Description: 25-hydrox yvitamin D3 [Mass/volume] in Serum or Plasma Final Vit D, 25-OH 2024 14:24:0 2 28 ng/mL 30-100 L Final Results may underestimate 25-OH Vitamin D inpatients receiving Vitamin D2 therapy.It is recommended to monitor patients onVitamin D2 therapy with LC/MS methodolgy(Referenc e lab).Performed by:Razient-95 (532) Panel Description: Lipid Panel Final Cholesterol 2024 14:24:0 2 184 mg/dL 0-200 Final Performed by:T Funny Or Die-95 (532) HDL,D 2024 14:24:0 2 92 mg/dL 40-120 Final Performed by:T OS-95 (532) Triglycerides 2024 14:24:0 2 78 mg/dL 0-150 Final Performed by:T Funny Or Die-95 (532) Chol/HDL 2024 14:24:0 2 2.0 Ratio 3.7-6.7 L Final Performed by:T OS-95 (532) LDLC 2024 14:24:0 2 76 mg/dL 0-100 Final Optimal <100Ne ar to above optimal 100 - 129Borderline High 130 -159High 160 - 189Very High > 190Performed by:TOS-95 (532) Panel Description: CBC W Auto Differential panel - Blood Final WBC 2024 14:24:0 2 9.50 K/uL 3.80-10.80 Final Performed by:T Funny Or Die-95 (532) RBC 2024 14:24:0 2 4.66 M/uL 3.80-5.10 Final Performed by:T Funny Or Die-95 (532) HGB 2024 14:24:0 2 13.6 g/dL 11.7-15.5 Final Performed by:T Funny Or Die-95 (532) HCT 2024 14:24:0 2 40.2 % 35.0-45.0 Final Performed by:T Funny Or Die-Biodel (532) MCV 2024 14:24:0 2 86.3 fL 80.0-100.0 Final Performed by:T OS-95 (532) MCH 2024 14:24:0 2 29.2 pg 27.0-33.0 Final Performed by:T OS-95 (532) MCHC 2024 14:24:0 2 33.8 g/dL 32.0-36.0 Final Performed by:T OS-95 (532) RDW 2024 14:24:0 2 13.2 % 11.0-15.0 Final Performed by:T OS-95 (532) PLT 2024 14:24:0 2 319 K/uL 150-400 Final Performed by:T OS-95 (532) MPV 2024 14:24:0 2 11.9 fL 6.0-12.0 Final Performed by:T OS-95 (532) IG # 2024 14:24:0 2 0.02 K/uL 0.00-0.05 Final Performed by:T OS-95 (532) IG % 2024 14:24:0 2 0.2 % 0.0-0.9 Final Performed by:T OS-95 (532) Neut # 2024 14:24:0 2 6.00 K/uL 1.50-7.80 Final Performed by:T OS-95 (532) Neut % 2024 14:24:0 2 63.2 % 40.0-75.0 Final Performed by:T OS-95 (532) Lym # 2024 14:24:0 2 2.49 K/uL 0.85-3.90 Final Performed by:T OS-95 (532) Lym % 2024 14:24:0 2 26.2 % 16.0-46.0 Final Performed by:T OS-95 (532) Sequoyah # 2024 14:24:0 2 0.68 K/uL 0.20-1.10 Final Performed by:T OS-95 (532) Sequoyah % 2024 14:24:0 2 7.2 % 0.0-12.0 Final Performed by:T OS-95 (532) Eos # 2024 14:24:0 2 0.26 K/uL 0.02-0.50 Final Performed by:T OS-95 (532) Eos % 2024 14:24:0 2 2.7 % 0.0-7.0 Final Performed by:T OS-95 (532) Baso # 2024 14:24:0 2 0.05 K/uL 0.00-0.20 Final Performed by:T OS-95 (532) Baso % 2024 14:24:0 2 0.5 % 0.0-2.0 Final Performed by:T OS-95 (532) NRBC # 2024 14:24:0 2 0.000 K/uL 0.000-0.012 Final Performed by: TOS-95 (532) NRBC % 2024 14:24:0 2 0.0 % 0.0-0.2 Final Performed by:T OS-95 (532) Panel Description: Albumin/Creatinine [Mass Rati o] in Urine Final MALB-U 2024 14:24:0 2 3.00 mg/dL Final Performed by:T OS-95 (532) Creat-U 2024 14:24:0 2 57 mg/dL 40-180 Final Performed by:T OS-95 (532) M/C Ratio 2024 14:24:0 2 53 mcg/mg creat <30 H Final M/C Ratio Classification: Normal <30 mcg/mg creat;Microalbuminu eda 30-300 mcg/mg creat;Clinical albuminuria = or >300 mcg/mg creat.Performed by:TOS-95 (532) Advance Directives Directive Yes / No Effective Date File Name Life Support Not Answered N/A N/A Intubation Not Answered N/A N/A Antibiotics Not Answered N/A N/A IV Fluid Support Not Answered N/A N/A Tube Feed Not Answered N/A N/A Other Directive N/A N/A WARNING:The information contained in this section is historical and is provided for information only and does not constitute a legal document or any assurance that the information is still accurate. Please verify the information with the fox of the legal document before using it for clinical purposes. Encounters Encounter Description Practice Location Reason(s) For Visit Diagnoses Date Provider Providers Copied on Encounter PREVENTATIVE -EST: [facility], [address], [place], [place], [address] , tel: [phone] [facility] routine visit (chief complaint) Morbid obesityType 2 diabetes mellitus with hyperlipidemiaLong-t erm insulin useHyperlipidemia, unspecifiedOther fatigueHypertension secondary to endocrine disordersGeneral medical examination 5 Alphonso Aquino. [address], [place], [address] , [place]. tel: [phone] Referring Provider: Miles Xavier, [address] [facility], [place], [address] . tel:[phone] [facility], [address], [place], [place], [address] , tel: [phone] [facility] No Information Alphonso Aquino. [address], [place], [address] , . tel: [phone] OFFICE QUYDU-UVF-MM TAILED [facility], [address], [place], [place], [address] , tel: [phone] [facility] follow up (chief complaint) Piriformis syndrome of right sideType 2 diabetes mellitus with hyperlipidemiaHyperl ipidemia, unspecifiedHypertens ion secondary to endocrine disordersMorbid obesity 4 Alphonso Aquino. [address], [place], [address] , [place]. tel: [phone] Referring Provider: Miles Xavier, [address] [facility], [place], [address] . tel:[phone] PREVENTATIVE -EST: [facility], [address], [place], [place], [address] , tel: [phone] [facility] routine visit (chief complaint) Chronic right-sided low back pain, unspecified whether sciatica presentType 2 diabetes mellitus with hyperlipidemiaHyperl ipidemia, unspecifiedClass 3 obesityElevated blood pressure readingVitamin D deficiencyGeneral medical examinationLong-term insulin useChronic hip pain, unspecified lateralityOther chronic pain Sep-0 4 Alphonso Aquino. [address], [place], [address] , [place]. tel: [phone] Referring Provider: Miles Xavier, [address] [facility], [place], [address] . tel:[phone] OFFICE YRQOX-NZY-VG [facility], [address], [place], [place], [address] , [place] tel: [phone] [facility] stomach (chief complaint) DyspepsiaChange in bowel habits 4 Alphonso Aquino. [address], [place], [address] , [place]. tel: [phone] Referring Provider: Derick Caldera, [facility] [address] [facility], [place], [address] . tel:[phone] [facility], [address], [place], [place], [address] , [place] tel: [phone] [facility] Follow up (chief complaint) Type 2 diabetes mellitus with diabetic neuropathy, unspecified whether penitentiary insulin useMixed hyperlipidemiaLong term (current) use of insulinHealth care maintenanceHistory of PSVT (paroxysmal supraventricular tachycardia) 3 Pablo Sepulveda. [address] [facility], [place], [place], [address] , [place]. tel: [phone] Referring Provider: Derick Caldera [facility] [address] [facility], [place], [address] . tel:[phone] [facility], [address], [place], [place], [address] , [place] tel: [phone] [facility] Family history of malignant neoplasm of digestive organs 3 Pablo Sepulveda. [address], [place], [address] , [place]. tel: [phone] OFFICE STESH-ANS-IT [facility], [address], [place], [place], [address] , [place] tel: [phone] [facility] Patient encounter (chief complaint) Type 2 diabetes mellitus with diabetic mononeuropathyLong term (current) use of insulinHealth care maintenanceObesity (BMI 30.0-34.9) 3 Pablo Sepulveda. [address], [place], [address] , [place]. tel: [phone] Referring Provider: Derick Caldera [address] [facility], [place], [address] . tel:[phone] [facility], [address], [place], [place], [address] , [place] tel: [phone] [facility] Type 2 diabetes mellitus with hyperglycemia, with long-term current use of insulinLong term (current) use of insulin 3 Pablo Sepulveda. [address], [place], [address] , [place]. tel: [phone] OFFICE KQPYU-IZK-YF [facility], [address], [place], [place], [address] , [place] tel: [phone] [facility] Follow Up of Patient encounter (chief complaint)C hronic Conditions (chief complaint) Mixed hyperlipidemiaType 2 diabetes mellitus with hyperglycemia, with long-term current use of insulinLong term (current) use of insulinType 2 diabetes mellitus with diabetic mononeuropathy 3 Maryjo Vasquez. [address], [place], [address] , [place]. tel: [phone] Referring Provider: Derick Caldera [address] [place], [address] . tel:[phone] OFFICE IYGYN-RTA-BH [facility], [address], [place], [place], [address] , [place] tel: [phone] [facility] Follow Up of Patient encounter (chief complaint) Type 2 diabetes mellitus with hyperglycemia, with long-term current use of insulinLong term (current) use of insulin 3 Pablo Sepulveda. [address], [place], [address] , [place]. tel: [phone] Referring Provider: Derick Caldera [address] [facility] [place], [address] . tel:[phone] [facility], [address], [place], [place], [address] , [place] tel: [phone] [facility] Type 2 diabetes mellitus with diabetic neuropathy, unspecified whether penitentiary insulin useVitamin D deficiencyMixed hyperlipidemia Oct 2 Pablo Caldera Derick. [address] [employer] [place], [place], [address] , [place]. tel: [phone] Referring Provider: Derick Caldera, [address], [place], [address] . tel:[phone] OFFICE BJAAS-TRI-RU [facility], [address], [place], [place], [address] , [place] tel: [phone] [facility] Patient encounter (chief complaint) Type 2 diabetes mellitus with diabetic neuropathy, without long-term current use of insulinNeuropathyHai r lossAnxietyVitamin D deficiency 2 Pablo Fayjessica. [address], [place], [address] , [place]. tel: [phone] Referring Provider: Derick Caldera, [address], [place], [address] . tel:[phone] OFFICE ZWIWP-VLR-YO [facility], [address], [place], [place], [address] , [place] tel: [phone] [facility] Sinus symptoms (acute) (chief complaint)P atient encounter (chief complaint) URI, acuteType 2 diabetes mellitus with diabetic neuropathy, without long-term current use of insulin 2 Pablo Fayjessica. [address] [employer] [place], [place], [address] , [place]. tel: [phone] Referring Provider: Derick Caldera [address] [facility], [place], [address] . tel:[phone] OFFICE TIUIF-BXL-GT [employer], [address], [place], [place], [address] , [place] tel: [phone] [facility] diabetes f/u (chief complaint) Type 2 diabetes mellitus with diabetic neuropathy, without long-term current use of insulin Chalino-0 2 Max Bourne. [address], [place], [address] , [place]. tel: [phone] Referring Provider: Tayla Santana, [address] [facility], [place], [address] . tel:[phone] OFFICE SYITI-DDW-BV [facility], [address], [place], [place], [address] , [place] tel: [phone] [facility] Diabetes (follow up) (chief complaint) Type 2 diabetes mellitus with diabetic neuropathy, without long-term current use of insulinClass 2 obesity due to excess calories with body mass index (BMI) of 36.0 to 36.9 in adult, unspecified whether serious comorbidity presentObesity (BMI 30.0-34.9)Anxiety Palomo-0 - 2 Max Bourne. [address], [place], [address] , [place]. tel: [phone] Referring Provider: Derick Caldera, [address] [facility], [place], [address] . tel:[phone] [facility], [address], [place], [place], [address] , [place] tel: [phone] [facility] Type 2 diabetes mellitus with diabetic neuropathy, without long-term current use of insulin Dec-2 0-202 1 Justin Roberson. [address], [place] [address], [place], [place], [address] , [place]. tel: [phone] Referring Provider: Derick Caldera, [address] [facility], [place], [address] . tel:[phone] OFFICE RRIWG-IQT-JX [facility], [address], [place], [place], [address] , [place] tel: [phone] [facility] Diabetes (chief complaint) Type 2 diabetes mellitus with diabetic neuropathy, without long-term current use of insulin Dec-0 -202 1 Pablo Sepulveda. [facility], [place], [address] , [place]. tel: [phone] Referring Provider: Derick Caldera, [address] [facility], [place], [address] . tel:[phone] TELEPHONE E&M SERVICE BY A PHYSICIAN;5- 10 MINUTES OF MEDICAL DISCUSSION [facility], [address], [place], [place], [address] , tel: [phone] [facility] Follow up (chief complaint) Type 2 diabetes mellitus with hyperglycemia, without long-term current use of insulin 0 1 Pablo Sepulveda. [address], [place], [address] , . tel:[phone] Referring Provider: [facility] Caldera [facility], [place], [address] . tel:[phone] [facility], [address], [place], [place], [address] , tel:[phone] [facility] No Information 1 Pablo Sepulveda. [address], [place], [address] , . tel:[phone] OFFICE YCERE-INJ-DX [facility], [address], [place], [place], [address] , tel:[phone] [facility] Diabetes (chief complaint) Type 2 diabetes mellitus with hyperglycemia, without long-term current use of insulinPSVT (paroxysmal supraventricular tachycardia)Obesity (BMI 30.0-34.9) 1 Pablo Sepulveda. [address], [place], [address] , [place]. tel:[phone] Referring Provider: Derick Caldera [address] [facility], [place], [address] . tel:[phone] OFFICE XNCZC-WWI-CZ [facility], [address], [place], [place], [address] , tel:[phone] [facility] routine (chief complaint)C hronic Conditions (chief complaint) Type 2 diabetes mellitus with diabetic neuropathy, without long-term current use of insulinClass 2 obesity due to excess calories with body mass index (BMI) of 36.0 to 36.9 in adult, unspecified whether serious comorbidity presentType 2 diabetes mellitus with other circulatory complicationsObesity , unspecified 1 Maryjo Vasquez. [address], [place], [address] , [place]. tel: [phone] Referring Provider: Derick Caldera, [facility] [facility], [place], [address] . tel:[phone] [facility]ICE [facility], [address], [place], [place], [address] , [place] tel: [phone] [facility] [facility] Diabetes (follow up) (chief complaint) Type 2 diabetes mellitus without complication, without long-term current use of insulinNeuropathy 1 Max Bourne. [address], [place], [address] , [place]. tel: [phone] Referring Provider: Derick Caldera, [facility] [place], [address] . tel:[phone] OFFICE SCWAI-ECE-PU GraphOn A Bit Lucky [facility], [address], [place], [place], [address] , [place] tel: [phone] [facility] Bilateral posterior leg pain. (chief complaint) NeuropathyLeg pain, bilateralPain in left leg 1 Max Bourne. [address], [place], [address] , [place]. tel: [phone] Referring Provider: Derick Caldera, [address] [facility], [place], [address] . tel:[phone] OFFICE WGBUC-AAX-CO GraphOn A Bit Lucky [facility], [address], [place], [place], [address] , [place] tel: [phone] [facility] routine (chief complaint) Type 2 diabetes mellitus without complication, without long-term current use of insulin 1 Max Bourne. [address], [place], [address] , [place]. tel: [phone] Referring Provider: Jaime Harman, [address] [place], [address] . tel:[phone] [facility], [address], [place], [place], [address] , tel: [phone] [facility] routine (chief complaint) Type 2 diabetes mellitus without complication, without long-term current use of insulinHeart palpitations Jul-0 202 0 Max Bourne. [address], [place], [address] , [place]. tel: [phone] Referring Provider: Jaime Harman, [address] [place] [address], [address] . tel:[phone] OFFICE [facility], [address], [place], [place], [address] , [place] tel: [phone] [facility] LUMP ON BASE OF NECK (chief complaint)D iabetes (follow up) (chief complaint) Soft tissue massType 2 diabetes mellitus without complication, without long-term current use of insulinBody mass index (bmi) 39.0-39.9, adult Jan- 0 Max Bourne. [address], [place], [address] , [place]. tel: [phone] Referring Provider: Jaime Harman, [address] [place] [address], [place], [address] . tel:[phone] [facility], [address], [place], [place], [address] , [place] tel: [phone] [facility] Follow Up of follow up (chief complaint) Type 2 diabetes mellitus without complication, without long-term current use of insulinBody mass index (bmi) 39.0-39.9, adultSkin cancer of breast 0 Max Bourne. [facility], [place], [address] , [place]. tel: [phone] Referring Provider: Jaime Harman, [address] [place], [address] . tel:[phone] OFFICE [facility], [address], [place], [place], [address] , [place] tel: [phone] [facility] DM/HTN (chief complaint) Type 2 diabetes mellitus with diabetic neuropathy, without long-term current use of insulinBody mass index (bmi) 39.0-39.9, adultElevated blood pressure reading without diagnosis of hypertensionNeuropat hy Max Aguilarelle. [address] [place], [place], [address] , [place]. tel: [phone] Referring Provider: Jaime Harman, [address] [place], [address] . tel:[phone] [employer], [address], [place], [place], [address] , tel: [phone] [facility] DM/HTN (chief complaint) Type 2 diabetes mellitus with diabetic neuropathy, without long-term current use of insulinNeck painSkin lesion Max Aguilarelle. [address] [place], [place], [address] , . tel: [phone] Referring Provider: Jaime Harman, [address] [facility], [place], [address] . tel:[phone] [facility], [address], [place], [place], [address] , tel: [phone] [facility] Body mass index (BMI) 36.0-36.9, adultType 2 diabetes mellitus without complication, without long-term current use of insulin 8 Benedict Sandoval. [address] [place], [place], [address] . tel: [phone] Referring Provider: Jaime Harman, [address] [facility], [place], [address] . tel:[phone] [facility], [address], [place], [place], [address] , tel: [phone] [facility] Type 2 diabetes mellitus without complication, without long-term current use of insulin 8 Maryjo Vasquez. [address] [place], [place], [address] , [place]. tel: [phone] Referring Provider: Jaime Harman, [address] [place], [address] . tel:[phone] [facility] [facility] [employer], [address], [place], [place], [address] , tel: [phone] [facility] Uncontrolled type 2 diabetes mellitus without complication, without long-term current use of insulin 8 Maryjo Vasquez. [address], [place], [address] , . tel: [phone] Referring Provider: Jaime Harman, [address] [place], [address] . tel:[phone] [employer], [address], [place], [place], [address] , tel: [phone] [facility] Uncontrolled type 2 diabetes mellitus without complication, without long-term current use of insulin Maryjo Vasquez. [address], [place], [address] , . tel: [phone] Referring Provider: Jaime Harman, [facility] [place], [address] . tel:[phone] [employer], [address], [place], [place], [address] , tel: [phone] [facility] Class 2 obesity due to excess calories without serious comorbidity with body mass index (BMI) of 39.0 to 39.9 in adultBody mass index (bmi) 39.0-39.9, adult 8 Benedict Mcbride. [address], [place], [address] . tel: [phone] Referring Provider: Jaime Harman, [address] [place], [address] . tel:[phone] [employer], [address], [place], [place], [address] , tel: [phone] [facility] Class 2 obesity due to excess calories without serious comorbidity with body mass index (BMI) of 39.0 to 39.9 in adultBody mass index (bmi) 39.0-39.9, adult Benedict Rae. [address], [place], [address] . tel: [phone] Referring Provider: Jaime Harman, [facility] [place], [address] . tel:[phone] [facility], [address], [place], [place], [address] , tel: [phone] [facility] Class 2 obesity due to excess calories without serious comorbidity with body mass index (BMI) of 39.0 to 39.9 in adult Winifred Heller. [address] [facility], [address], [place], [place], [address] , [place]. tel: [phone] Referring Provider: Jaime Harman, [facility] [place], [address] . tel:[phone] [facility], [address], [place], [place], [address] , tel: [phone] [facility] Class 2 obesity due to excess calories without serious comorbidity with body mass index (BMI) of 39.0 to 39.9 in adultBody mass index (bmi) 39.0-39.9, adult Benedict Mcbride. [address], [place], [address] . tel: [phone] Referring Provider: Jaime Harman, [facility] [place], [address] . tel:[phone] [facility], [address], [place], [place], [address] , tel: [phone] [facility] Body mass index (BMI) 39.0-39.9, adultEncounter for general adult medical examination without abnormal findingsEncounter for screening mammogram for breast cancer 7 Benedict Sandoval. [address], [place], [address] . tel: [phone] Referring Provider: Jaime Harman, [address] [place], [address] . tel:[phone] Family History Family Member Type Diagnosis Age At Onset Mother Problem (finding) diabetes mellitus type 2 Mother Problem (finding) hypertension Immunizations Vaccine Date Status Comments Fluzone Quad, split virus, 0.5mL dosage administered Source: New Immuniza tion Record Moderna COVID19 Vaccine, 0.5 mL per dose, 2 doses, administered 28 days apart administered Source: [employer] Moderna COVID19 Vaccine, 0.5 mL per dose, 2 doses, administered 28 days apart administered Source: GI Track Td (adult), adsorbed refused Source: New Immunization Record Fluzone Quad , spli t virus, 0.5mL dosage administered Source: Public Agenc y Payers Payer name Insurance type Covered green party ID Authoriza tion(s) BCBS ACCESS BL [id number] BCBS ACCESS BL [id number] BCBS INACTIVE OUT OF STATE BL [id number] Social History Type Description Quantity Date Captured Comments Alcohol Use Details Caffeine Use Details coffee and tea Tobacco Use Status No Information Smoking Status Never smoker Non-Smoking Tobacco Use Details : No Details Available : No Details Available Sex Female Vital Signs Date / Time: Height Weight BMI Pulse Rate Blood Pressure Temperature Respiratory Rate Body Surface Area Head Circumference Head Circ. Percentile Wt./Khoa. Percentile BMI percentile Pulse Ox Inhaled Ox 12:02 PM 67.00 in 107.229 kg (236.40 lbs) 37.0 3 kg/m eter (2) 91 /min 156/99 mm[Hg] 2.25 meter(2) 99 % 1:01 PM 158/82 mm[Hg] Chief Complaint And Reason For Visit From encounter dated '08/25/2024 12:00'. routine visit (chief complaint). Description: 49-year-old morally obese female her for a three month routine follow-up visit. Patient denies any hospitalization since her last office visit. Patient was diagnosed with piriformis syndrome on the right last office visit it was recommended to follow upof physical therapy, however, she did not do this. She states that the pain subsided on his own with some stretching at home. She did have negative x-rays completed of her low back and both hips backin 04/2024. weight is stable. Today she weighs 236 pounds.hypertension/IDDM w/ hlp - repeat blood pressure remains elevated. Patient denies headache, chest pain or palpitations. She was started on valsartan last office visit back in 05/2024. She continues on basaglar 26 units daily, mounjaro 5mg weekly on sundays (started back in 04/2024), and farxiga 10mg daily. nicety hypoglycemia. No myalgia with rosuvastatin 2 mg dailymorbid obesity-she continues weight loss efforts.fatigue-patient states that for the past couple months or so she wakes up each morning least one or two mornings with fatigue and sluggishness like she didn't sleep well. The fatigue does not persist throughout the day. Denies EDS. Patient has never had a sleep study.last colonoscopy took place 04/2023 with the expectation that when repeated 04/[address] Roblero of [facility]. Patient to have negative screening mammogram for breast cancer back in 04/2024. . Reason For Referral Reason For Referral No Information Plan Of Treatment Date Type Action Status Referral Referred To: [place] [place], [address] [phone] Ordered: SLEEP STUDY, UNATTENDED ordered Referral Ordered: Physical Therapy [facility] Physical Therapy [facility] (related to Piriformis syndrome of right side) ordered Referral Referred To: Physical Therapy [address] [place], [phone] Ordered: Referrals: Physical Therapy. Location: [facility] Physical [facility]. Evaluate and treat - Level 2 ordered Referral Ordered: X-RAY EXAM OF HIPS (3-4 VIEWS) Bilateral ordered Referral Ordered: X-RAY EXAM OF LUMBAR SPINE, A/P & LAT ordered Referral Ordered: EYE EXAM ESTABLISHED PAT ordered Referral Referred To: [facility] [address] [place], [place], [phone] Ordered: Referrals: Dermatology. [facility]. Location: [facility]. Evaluation/diagnostic/treatment - Level 3 ordered Referral Referred To: [address], [phone] Ordered: 2D echocardiography ordered Referral Ordered: EKG (ELECTROCARDIOGRAM) ordered Referral Ordered: Ultrasound examination of head or neck tissues ordered Referral Ordered: Radiologic examination, spine, cervical; 2 or 3 views ordered Appointment Melissa Batres BOOKED Future Order: Radiology Order Ra diologic examination, spine, cervical; 2 or 3 views ([id number]), Sent on: Sent History Of Present Illness Encounter Date Complaint History Of Prese nt Illness routine visit 49-year-old mariano lly obese female her for a three month routine follow-up visit. Patient denies any hospitalization since her last office visit. Patient was diagnosed with piriformis syndrome on the right last office visit it was recommended to follow up of physical therapy, however, she did not do this. She states that the pain subsided on his own with some stretching at home. She did have negative x-rays completed of her low back and both hips back in 04/2024. weight is stable. Today she weighs 236 pounds.hypertension/IDDM w/ hlp - repeat blood pressure remains elevated. Patient denies headache, chest pain or palpitations. She was started on valsartan last office visit back in 05/2024. She continues on basaglar 26 units daily, mounjaro 5mg weekly on sundays (started back in 04/2024), and farxiga 10mg daily. nicety hypoglycemia. No myalgia with rosuvastatin 2 mg dailymorbid obesity-she continues weight loss efforts.fatigue-patient states that for the past couple months or so she wakes up each morning least one or two mornings with fatigue and sluggishness like she didn't sleep well. The fatigue does not persist throughout the day. Denies EDS. Patient has never had a sleep study.last colonoscopy took place 04/2023 with the expectation that when repeated 04/[address] Roblero of [facility]. Patient to have negative screening mammogram for breast cancer back in 04/2024. . follow up 48-year-old shantel zamarripa here for a routine follow-up visit. About two months ago patient was seen in blood pressure was quite elevated. She been doing her best to consume low-salt diet. She's also been recording her blood pressure. BPs at home have been 130s over 90s and she's open to starting blood pressure medicines for new diagnoses of hypertension.. of note, patient was complaining of some right posterior buttock pain with radiation down to the posterior thigh last office visit. X-rays were negative for any lost arthritis of the low back or bilateral hips performed just last month 04/2024. Patient open to to starting physical therapy for piriformis syndrome of the right side.Hypertension/NIDDM w/ hlp -compliant with rosuvastatin. Denies myalgia. Most recent A1c was 6.3%. She continues with recently started Mounjaro and is ready for the 5mg dose increase. Denies any G.I. symptoms. She continues with Basaglar 26 units daily. No hypoglycemia. She's also on farxiga 10mg dailyblood pressure discussion as above.morbid obesity-she has lost a few pounds. She continues aggressive lifestyle and dietary modification.Of note, patient was able to get her screening mammogram performed on 04/12/2024. It was negative. routine visit 48-year-old post menopausal female here for a full month routine follow-up visit. Patient denies any hospitalizations that she was last seen. Incidentally, patient has gained about 17 pounds and she was last seen. her weight today is 240 pounds. Patient has been issued get back on track. incidentally, patient is requesting refill of her Toujeo insulin as she is out of this medication she usually takes 26 units daily. She is also requesting to be taken off of Ozempic 2mg weekly. She usually does this medication every Thursday. She wants off this medication because she's not getting any more of the weight loss benefits. She was requesting to be on Mounjaro. She's also on Farxiga 10mg daily. Most recent A1c value was actually pretty good at 5.6%. At one point though, however, A1c value was as high as 14% back in November 2022. No longer sees felled seam operator Dr. Sherley Keller with [facility]. She only saw her one time 01/2023 to establish care. She continues to work full-time. No tobacco. Alcohol in moderation. 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 Pain is located actually the hip area. Pain comes and goes. Denies any aggravating factors. Alleviating factors. Teach not take medicine for peer denies any right leg weakness or numbness. She does have positive hilda 4 testing on the right. Negative bilateral SLRs.Elevated blood pressure-repeat blood pressure remains elevated. Patient has never been on medications. Denies headache, chest pain of habitation. No leg edema. patient says that she would be interested in performing the sleep study if is causing her blood pressure to be elevated. she sleeps okay but does endorse some fatigue and a sense of feeling refreshed upon waking on some mornings.IDDM w/ hlp - diabetes discussion as above. Patient tolerates rosuvastatin without any myalgia.Incidentally, patients were taking vitamin D supplementation megadoses every single week for several years. She's been told that she has vitamin deficiency in the past.incidentally, patient tells me that she had a Pap smear two weeks ago ordered by her [employer] and it was negative. She had a mammogram just this morning. I have none of those results. She sees Dr. Klever Ybarra. stomach 48-year-old shantel le here for an acute visit. Patient tells me that for the past few days or so she's been having abdominal discomfort described as bloating associated with about 5 to 6 episodes of loose nonbloody stool. She's also been having some nausea and vomiting times one just yesterday morning. Last time she had a bowel movement we just afternoon and it was very loose. She also endorses some frequent belching as well. Denies any overt abdominal pain, fever, chills, body aches, or leg edema. No urinary complaint. No vaginal discharge. No weight loss. In fact she's gained about 5 pounds since last office visit in May 2023. Today she weighs 223 pounds. She's been very compliant with her Ozempic 2 mg weekly and gives her shot on Thursday afternoons. She's also on Toujeo basal insulin daily. She's been on this combination for number of years now. She's never experienced any G.I. side effects with Ozempic in the past. She has met with frequent heartburn/belching here recently over the past couple months. She denies any recent travel. No recent antibiotic use. She lived at home alone. Denies any recent unusual/new food consumption. she tolerates rosuvastatin without myalgia.abdominal exam today is benignlast colonoscopy took place 04/2023 with the expectation to have one repeated five years 2027 Follow up DM w/ neuropathy BG 103 this am. On avg BG range from 86-105. Highest 105. No hypoglycemic episodes. Pt is now on 2 mg Ozempic. Pt taking 3 cap of Gabapentin at night which controls her neuropathy Mixed HLPt is off of statin. She is not sure why she is off of it. PSVTStable. Pt denies palpitationsHCM Pt is utd with colonoscopyPt to call Dr. Humphrey's office for pap test. She usu makes appt w/ [facility] to get her mammogram the same day Patient encounter HTN Pt is comp liant with medication and low salt diet. Pt denies any CP or SOBDM Prev A1c > 14. Pt seen by endo and A1c at their office 6.9. Pt reports she has been taking better care of herself. She started eating better. Her previous blood sugars were running in the 200 to 300s. Average Blood sugar is 93. Highest is 115. Patient started taking Toujeo at night. This has improved her blood sugars. She is currently taking 26 units of Toujeo at nightObesity Pt lost 4 lbs from prev visit HCMNever had a colonoscopy. Mammogram done at [facility] 03/2022 and was benign. [facility] to send her the form for her mammogram. She is utd with pap. Follows up with Dr. Humphrey Follow Up of Patient encounter Chronic Conditions *See Chronic Conditions HPI Mar-10-2023 Follow Up of Patient encounter P t is hr for f/u Derm Going to [place] at Dr. Myers's [facility]. The med is working well for her. Doxycycline and fade cram. scalp is better as well. DM BG have been uncontrolled. Had a viral infection 3 wks ago and the BG high of 300s and not coming down. Increased thirst and urination Patient encounter DM w/ neuropat hy Pt has been off of Ozempic since February. On avg, the BG run 140s. The highest is 1a40s. No hypoglycemic episodes Neuropathy Controlled. On gabapentin Hair LossPt c/o hair loss on the R side of her head. Initially lost hair on both sides of her head. The hair on the L side is coming back but still w/ hair loss on the R side Anxiety No longer taking Buspirone. Feels her mood is stable w/o itVit D defPt completed high dose vit. Has not gotten otc vit D Sinus symptoms (acute) Patient encounter Pt started wit h of last week. Mucous draining started Thursday. Went to [facility] and got the COVID test on Thursday and found out yesterday it was neg. Took 2 at home tests prior to that they were also neg. Sxs began with a sore throat. +cough. Took Diabetic Tussin and Busby cough drops.. No f/c. Cough is productive of +White phlegm. No known exp to anyone with cold or URI no nausea/vomiting or diarrhea. Pt reports the symptoms initially improved but then worsened. BG running 140. no hypoglycemia diabetes f/u Patient presents to the office for diabetes follow up. Current A1c 12.4. Patient recently started on Toujeo 10 units daily with little improvement in blood sugars. She takes Farxiga and Ozempic without issues. FBG range 180-200. Will plan to increase dose. Patient agrees with plan. Patient reports cutting back on sugary snacks and late night eating. She walks 4-5 dys a week for exercise. Neuropathy stable. She takes Gabapentin. Diabetes (follow up) 1) Type 2 d iabetes mellitus with diabetic neuropathy, without long-term current use of insulin (Poorly controlled. Current A1c 9.7. Patient monitors blood sugars 1 to 2 times daily and reports fasting blood sugars consistently elevated between 200 and 300. She reports more stress with work and life events. Patient is motivated to get back on track. she takes Olympic weekly injectable and Farxiga as prescribed. She does admit to overindulging due to stress. Patient reports polyuria, polydipsia and polyphasia. Neuropathy is stable. She takes gabapentin.) 2) Class 2 obesity due to excess calories with body mass index (BMI) of 36.0 to 36.9 in adult, unspecified whether serious comorbidity present (Stable. Current BMI. 32 from 35. Noted 16 pound weight loss since previous visit. Patient does not have a routine exercise regimen.) 3) Obesity (BMI 30.0-34.9) (Stable. see above) 4) Anxiety (Exacerbated. Patient reports increased anxiety since returning back to work in person. she is working towards healthier coping mechanisms to deal with recent changes. She reports feeling anxious on most days which affects her productivity. Patient denies feelings of self-harm.) Pertinent negatives include fatigue, weight gain and weight loss. Diabetes Risk factors inc lude: race, obesity and sedentary lifestyle. Managing with: Diet, Oral medications and Fingerstick blood sugars (). Pertinent negatives include chest pain, diarrhea, dyspnea and urinary frequency. Additional information: when extremely high, like >400 and she will have blurred vision. Reports her BG was 266 this am and 271 two and a half hours after eating. She is having diarrhea with the Metformin XR now. Follow up Pt has initiated and agreed to a telephonic visit. Total time of the call 8:00 mins/secsFBG 264 After 1 hr after 230. yesterday FBG 258, 346 after protein shake. She has been drinking Ensure protein shakes sanjiv on days when she does not feel like eating. Did start Metformin XR. Did have diarrhea the first 2 days when went to the bathroom. Has not had diarrhea today or yesterday. Taking 1 pill per day of the metformin. Diabetes Risk factors inc lude: race obesity and sedentary lifestyle. Risk factors include:, race, obesity, sedentary lifestyle, race, obesity and sedentary lifestyle. Managing with: Diet, Oral medications, Fingerstick blood sugars (), Diet, Oral medications and Fingerstick blood sugars (). Pertinent negatives include Pertinent negatives include chest pain diarrhea, dyspnea and urinary frequency., chest pain, diarrhea, dyspnea and urinary frequency. Additional information: Pt is here for f/u of Hyperglycemia. Pt's BG have been uncontrolled for approx 1 wk. BG was 360 this am. Pt reports I don't know what is going on with my blood sugar .. Diabetes (comments) She states s he was getting BG readings of 500-600s. She called distribution estimator MD and he advised her to go to the ED. Pt went to [facility]. There her BG was closer to 600 per pt. Pt states she was given IVF and placed on insulin gtt. Three hours later her BG went from 540 to 140and she was d/c'd home. She had an ablation on last at [facility] for her SVT. She has f/u on Jul 08 with cardio. She is off of the metoprolol routine Chronic Conditions *See Chronic Conditions HPI Diabetes (follow up) 1) Type 2 d iabetes mellitus without complication, without long-term current use of insulin (Well Controlled. Diabetes is very well controlled. Current A1c-6.4. Patient monitors blood sugars daily and reports FBG consistently less than 130. She takes Ozempic weekly injectable without issues and denies recent hypoglycemic event.) 2) Neuropathy (Improved. Neuropathy to BLE has improved with gabapentin. symptoms are worse at night. She denies gait disturbance.) 3) BMI 35.0-35.9,adult (Stable. Current BMI=35. Patient does not have a routine exercise regimen. We have discussed walking 3-4 days a week. Diet is fair. Patient understands the benefits of setting goals for weight loss and lifestyle modifications. She has no acute medical concerns in the office today. Routine labs due.) Pertinent negatives include fatigue, weight gain and weight loss. Bilateral posterior leg pain. Thor ma presents to the office with c/o bilateral leg pain. She has h/o DM2 which is well controlled. H/o diabetic neuropathy and has try gabapentin in the past with some success. Pain specific to bilateral legs and described as burning and throbbing that is worse at night. Pain worse with sitting and lying down at night. Symptoms occur several times a week. She denies recent fall or injury. She denies open areas to skin. She c/o varicose veins as well. routine Patient presents to the office for routine follow up on diabetes. Diabetes well controlled at this time. Current A1c 6.2. She takes Ozempic without issues. Diet is low carb. Weight is steady. Current BMI 34. Patient does not have a routine exercise regimen but plans to start walking 3-4 times a week. She denies chronic pain or any acute medical issues in the office today. A1c due on return. routine Patient presents for routine follow up. Blood pressure noted to be lower than normal . She is asymptomatic during visit but reports feelings of dizziness, diaphoresis, heart palpitations, lightheadedness and chills this morning. Symptoms lasted 30-45mins. She denies cough, fever or headache. She denies respiratory symptoms. She does not take antihypertensives. Will obtain EKG in the office today. She started taking Phentermine and b-12 injections around 2-3 months ago to assist with weight loss (meds prescribed by Dr. Arce). She has lost around 20 pounds since the beginning of treatment. She admits to experiencing similar symptoms over the past few months. Diabetes well controlled at this time. Current A1c- 7.0. She monitors blood sugars daily. She reports compliance with current regimen (Ozempic and Farxiga). LUMP ON BASE OF NECK Diabetes (follow up) 1) Type 2 d iabetes mellitus without complication, without long-term current use of insulin (Well Controlled. Monitors blood sugars daily. FBG less than 130 on most days. She takes all medications without issues. Denies recent hypoglycemic event. Diet is fair. She has cut back on sugary drinks and snacking.) 2) Soft tissue mass (Stable. She reports pain to posterior neck. States that she noticed a lump some years ago which has now grown in size. She reports tenderness. Denies open area or drainage.) 3) Body mass index (bmi) 39.0-39.9, adult (Stable. Current BMI=36. Patient recently started walking a few days a week for exercise. Patient understands the benefit of setting goals for weight loss and lifestyle modifications.) Pertinent negatives include fatigue, weight gain and weight loss. Follow Up of follow up Patient p resents to the office for routine follow up. Blood pressure is controlled at this time. Denies chest pain, shortness of breath or heart palpitations. Monitors blood sugars daily. FBG consistently within normal limits. Diabetes well controlled at this time. A1c- 7.0. She is compliant with all medications including Farxiga, Metformin and Ozempic without issues. Denies recent hypoglycemic event. BMI-36. She's had a 10 pound weight loss since last visit. She does not have a routine exercise regimen but has worked on improving diet choices. She has h/o skin cancer to face. Recent evaluation revealed skin cancer to left breast. Mammogram normal. She is scheduled for surgery in 1 day. DM/HTN 1) Type 2 diabet es mellitus with diabetic neuropathy, without long-term current use of insulin (Monitors blood sugars daily. FBG range from 123-171. She takes medications without issues. Denies recent hypo/hyperglycemic event. Diet is not specific. We have talked in great length about appropriate diet choices.) 2) Elevated blood pressure reading without diagnosis of hypertension (Blood pressure is slightly elevated at this time. She does not take medications for blood pressure at this time. We have discussed starting BP medication if readings are elevated on return. Denies chest pain, shortness of breath or heart palpitations.) 3) Body mass index (bmi) 39.0-39.9, adult (Current BMI=39. Patient does not exercise. Patient understands the benefit of setting goals for weight loss and lifestyle modifications.) 4) Neuropathy (Neuropathy stable. She takes gabapentin which is effective.) Pertinent negatives include fatigue, weight gain and weight loss. DM/HTN 1) Type 2 diabet es mellitus with diabetic neuropathy, without long-term current use of insulin (She monitors blood sugar BID. Current A1c-6.3. A1c due today. She takes Metformin, Farxiga and Ozempic as directed without issues. Denies recent hypo/hyperglycemic events She initially agree to take MARIA A inhibitor for kidney protective benefits but changed her mind due to her sister experiencing severe angioedema. She is requesting to discontinue this medication. She is also in the office today with c/o peripheral neuropathy to bilateral feet. (numbness to heels and tingling to toes). Will start a trial of gabapentin.) 2) Body mass index (BMI) 36.0-36.9, adult (She does not have a routine exercise regimen. She monitors her diet and tried to adhere to diet low in carbs and sugar. BMI 36.7.) 3) Neck pain (She c/o neck pian. Symptoms started over a year ago. No recent fall or injury. She is concerned and would like further evaluation. Will consider cervical spine x-ray.) 4) Skin lesion (Patient states that she has a h/o skin cancer (malignant skin lesion that was removed). She follows up with dermatology (Dr. Corrigan in [place]). She c/o 2 new lesions to the right side of her face and will be evaluated by dermatology in 1 month. No reports no other issues. This history has not been documented. Will request records.) Pertinent negatives include fatigue, weight gain and weight loss. Functional Status Date Functional Assessmen t No Information Instructions Date Instruction Additional Infor benita you appear to be doing well all things considered diet and exercise goals have been reviewed screening status and immunization schedule has been reviewed Await laboratory studies Related to General medical examination await laboratory studies please get sleep study performed career based intervention coordinator will contact you shortly by either phone call and/or mail with details on how to get this referral and/or study scheduled/completed. If you do not hear from this office within one week regarding this process then please contact the office at that time. Related to Other fatigue continue weight loss efforts Related to Morbid obesity continue with rosuvastatin 10 mg daily Related to Hyperlipidemia, unspecified as above Related to Long-term insulin use well-controlled as evidenced by your most recent A1c value of 6.3% back in 04/2024 await laboratory studies for repeat A1c check increase dose of Mounjaro up to 7.5mg weekly at this time continue with Basaglar 26 units at night daily continue with farxiga 10mg daily continue diabetic diet Related to Type 2 diabetes mellitus with hyperlipidemia your blood pressure is elevated and not at goal of less than 130/80 please increase valsartan up to 80 mg daily. 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 I am pleased with your weight loss continue weight loss efforts Related to Morbid obesity continue with rosuvastatin 10 mg daily Related to Hyperlipidemia, unspecified your diabetes is stable and well-controlled as evidenced by your most recent A1c value of 6.3%, however, we will increase dose of Mounjaro up to 5mg weekly at this time continue with Basaglar 26 units at night daily continue with farxiga 10mg daily continue diabetic diet please contact this office for any hypoglycemia (blood sugars less than 70 mg/dL) r outine labs next office visit Related to Type 2 diabetes mellitus with hyperlipidemia this is a new problem/diagnosis for you Your blood pressure is elevated and not at goal of less than 130/80 start valsartan 40 mg daily in the manner in which we discussed. 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 If you do not hear from this office within one week regarding this process then please contact the office at that time. 04/2024 x-rays of the bilateral hips and low back have been accessed and reviewed with you and are negative for osteoarthritis as we discussed Related to Piriformis syndrome of right side await laboratory studies for repeat A1c check start Mounjaro in the manner in which we discussed. 2.5 mg dose weekly has been sent to your pharmacy take as directed Please STOP ozempic Continue with Toujeo 26 units daily. Renewal has been sent to your pharmacy continue with farxiga 10mg daily continue diabetic diet Related to Type 2 diabetes mellitus with hyperlipidemia continue with rosuvastatin 10 mg daily Related to Hyperlipidemia, unspecified this is a new problem your blood pressure is elevated today and not normal at less than 120/80 await laboratory studies record blood pressures in the manner which we discussed and bring in those readings at next office visit please get sleep study performed Reevaluation next office visit six weeks Related to Elevated blood pressure reading continue weight loss efforts Related to Class 3 obesity as above Related to Long-term insulin use this is a new problem please get x-rays performed of your low back and hips; further information once these are completed career based intervention coordinator will contact you shortly by either phone call and/or mail with details on how to get this referral and/or study scheduled/completed. If you do not hear from this office within one week regarding this process then please contact the office at that time. Medrol dose pack steroid medication has been sent to your pharmacy. Take as directed. you may also take Tylenol up to 3000 mg daily as needed please perform back stretching/exercise prescription as we discussed Related to Chronic right-sided low back pain, unspecified whether sciatica present you appear to be doing well diet and exercise goals have been reviewed; please see handout on Mediterranean and DASH diet screening status immunization schedule has been reviewed 04/12/2024 screening mammogram results pending will revisit colorectal cancer screening Await laboratory studies Related to General medical examination await laboratory studies Related to Vitamin D deficiency take pantoprazole 40 mg daily for the next one month await laboratory studies follow up here in the office at that time with your PCP Related to Dyspepsia resolved at this time, however, follow up with her PCP here this office in one month Related to Change in bowel habits Stable. Pt had ablat ion last yr. No more episodes of PSVT Related to History of PSVT (paroxysmal supraventricular tachycardia) Given Flu vaccine to day Pt to call for mammogram and pap test appt. Gyne Dr. 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 Your last A1c was 5.6. Goal for your fasting blood glucose (BG) is less than 130. 2 hours after eating, your BG goal is less than 180. Continue your medications. Eat less processed sugars and fat--Foot exam done exam today. --Pt is taking 300 mg gabapentin at night Related to Type 2 diabetes mellitus with diabetic neuropathy, unspecified whether penitentiary insulin use Congratulations on y our 4 lb weight loss. Keep up the good work! Related to Obesity (BMI 30.0-34.9) Your Diabetes is wel l controlled. Your last A1c was 6.9 from endo's office per pt. Goal for your fasting blood glucose (BG) is less than 130. 2 hours after eating, your BG goal is less than 180. Continue your medications. Eat less processed sugars and fat Related to Type 2 diabetes mellitus with diabetic mononeuropathy On Toujeo 26 u at night Related to senior living (current) use of insulin --Refer for colonosc opy with Dr. Roblero: GI. --Up to date Mammogram done at [facility] 03/2022 and was benign. Next due 03/2023. [facility] to send her information to get mammogram. --Pt is up to date with pap test. She follows up with Dr. Humphrey: gyne Related to Health care maintenance Keep your blood suga rs at a target level of less than 130. Eat a good diet that spreads carbohydrates throughout the day. Aim for 30 minutes of moderate intensity exercise at least 4-5 days a week. Take your medicines as prescribed. Do not smoke. Keep your cholesterol and blood pressure at a normal level. Related to Type 2 diabetes mellitus with diabetic mononeuropathy Increase Toujeo to 30 units Rela chiara to senior living (current) use of insulin We will continue to monitor your cholesterol levels annually. A heart-healthy lifestyle can help you prevent high cholesterol. This lifestyle helps lower your risk for a heart attack and stroke.Eat heart-healthy foods. Eat fruits, vegetables, whole grains (like oatmeal), dried beans and peas, nuts and seeds, soy products (like tofu), and fat-free or low-fat dairy products.Replace butter, margarine, and hydrogenated or partially hydrogenated oils with olive and canola oils. (Canola oil margarine without trans fat is fine.)Replace red meat with fish, poultry, and soy protein (like tofu).Limit processed and packaged foods like chips, crackers, and cookies.Avoid smokingBe active. Exercise can improve your cholesterol level. Get at least 30 minutes of exercise on most days of the week. Walking is a good choice. Related to Mixed hyperlipidemia Hemoglobin A1C to be drawn at [facility]. Increase Toujeo to 30 units a day. New prescription for Ozempic has been sent to your pharmacy. We increased Ozempic to 1mg weekly. A Dexcom glucose monitoring system has been sent to your pharmacy. Call our office to schedule a time to meet with our diabetic champion to be properly trained on the device. Related to Type 2 diabetes mellitus with hyperglycemia, with long-term current use of insulin Disease process On Toujeo Related to senior living (current) use of insulin Your Diabetes is unc ontrolled by your recent numbers. Goal for your fasting blood glucose (BG) is less than 130. 2 hours after eating, your BG goal is less than 180. Continue your medications. Eat less processed sugars and fat--Increase Toujeo to 27 u daily. After 3 days, increase by 3 units if not at new goal. Related to Type 2 diabetes mellitus with hyperglycemia, with long-term current use of insulin Start 2000 iu Vit D 3 over the counter daily Related to Vitamin D deficiency Off Buspirone Related to Anxie ty --Refer to Dermatology Related t o Hair loss Your Diabetes is unc ontrolled. Your last A1c was 12.6. Goal for your fasting blood glucose (BG) is less than 130. 2 hours after eating, your BG goal is less than 180. Continue your medications. Eat less processed sugars and fat--Check A1c. Resume Ozempic if A1c greater than 7 Related to Type 2 diabetes mellitus with diabetic neuropathy, without long-term current use of insulin Controlled. On gabapentin Relate d to Neuropathy Your Diabetes is unc ontrolled. your current reported BGs are improved. Your last A1c was 12.4. Goal for your fasting blood glucose (BG) is less than 130. 2 hours after eating, your BG goal is less than 180. Continue your medications. Eat less processed sugars and fat Related to Type 2 diabetes mellitus with diabetic neuropathy, without long-term current use of insulin Likely viral Upper r espiratory infection. Concerned as symptoms initially improved then worsened --Start azithromycin only if symptoms not improved by if sxs. Pt also noted with fluid R ear--otitis media --use Visine over the counter for R red eye. Suspect viral conjunctivitis Related to URI, acute Your blood glucose r emains elevated Increase Toujeo dose to 20 units daily Follow up in 2 weeks with BG log (telephonic)Return to the office in 1 month for diabetes follow up Related to Type 2 diabetes mellitus with diabetic neuropathy, without long-term current use of insulin Your diabetes is unc ontrolledCheck Blood sugars twice daily. Once in morning before eating and 1-2 hours after dinner.It is important to take your medication everyday. Cut back on eating foods that are high in sugar. Watching your portion sizes are important.will initiate insulin if A1c remains elevated- discussed during visitcheck A1c- Related to Type 2 diabetes mellitus with diabetic neuropathy, without long-term current use of insulin great job on weight loss- keep up the good work- you have reduced your weight by 16 pounds since your previous visitexercise as toleratedYour meals should include more fruits, vegetables, whole grains, and lean meats. Avoid fried foods and fast foods because they contain a lot of saturated fats.Good to drink a glass of water before your meal to help control portion sizes.Avoid sitting in front of the television while eating. Related to Class 2 obesity due to excess calories with body mass index (BMI) of 36.0 to 36.9 in adult, unspecified whether serious comorbidity present symptomatic/stableIn itiate buspirone 5 mg three times a day as needed for anxietycontact the office if symptoms worsen or do not improve. Related to Anxiety Disease process Diabetic diet Increase metformin X R to 1 tab po BID for 1 wk, then increase to 2 tabs po BID. If diarrhea worsened or not improved, start Farxiga 1 tab po daily in addition to metforminRefer to dietitianStatus: Able to self-manage condition. Goals: Your goal is to work on healthy eating habits. Barriers: No barriers to goal achievement have been identified. Related to Type 2 diabetes mellitus with diabetic neuropathy, without long-term current use of insulin Your Diabetes is Unc ontrolled. Your last A1c was 9.7. Goal for your fasting blood glucose (BG) is less than 130. 2 hours after eating, your BG goal is less than 180. Continue your medications. Continue Metformin XR 1 tab daily for now. Eat less processed sugars and fat. Decreased concentrated fruit juices, white rice and white breadSTOP ENSURE Start Glucerna for protein shakesStatus: Able to self-manage condition. Goals: Your goal is to work on healthy eating habits. Barriers: No barriers to goal achievement have been identified. Related to Type 2 diabetes mellitus with hyperglycemia, without long-term current use of insulin congratulations on y our 13 pound weight loss. Keep up the good work Related to Obesity (BMI 30.0-34.9) Patient's blood suga r is currently uncontrolled. Will start next metformin extended release. Pt to call if any GI symptoms with the medicationStatus: Able to self-manage condition. Goals: Your goal is to work on healthy eating habits. Barriers: No barriers to goal achievement have been identified. Related to Type 2 diabetes mellitus with hyperglycemia, without long-term current use of insulin S/p Ablation on last week. Off metoprolol. Following up with cardio Related to PSVT (paroxysmal supraventricular tachycardia) Obesity means having so much body fat that your health is in danger. Having too much body fat can lead to Type 2 Diabetes, High Blood Pressure, Arthritis, Sleep Apnea, and Stroke. Your meals should include more fruits, vegetables, whole grains, and lean meats. Avoid fried foods and fast foods because they contain a lot of saturated fats.Good to drink a glass of water before your meal to help control portion sizes.Avoid sitting in front of the television while eating.Engage in a routine exercise program or walking 2 to 3 days a week can also aide in weight loss. Related to Class 2 obesity due to excess calories with body mass index (BMI) of 36.0 to 36.9 in adult, unspecified whether serious comorbidity present See plan #1 Related to Type 2 diabetes mellitus with diabetic neuropathy, without long-term current use of insulin Increase your Gabape ntin to 300mg at bedtime. Vitamin D level and Microalbumin urine test checked today. Continue taking Ozempic once weekly. Related to Type 2 diabetes mellitus with other circulatory complications Weight loss is highl y encouraged. As we discussed, increasing activity with taking brisk walks for 30 minutes 3-4 times a week. The plan is for you to lose 10-15 pounds by your next office visit:)Monitor your portion size. A trick I recommend is drinking a full glass of water before a meal to help you feel full faster, which will decrease the amount of food consumed. Related to Obesity, unspecified Disease process Continue Gabapentin as prescribe d Related to Neuropathy Your diabetes is wel l controlled at this time Check Blood sugars daily. It is important to take your medication as prescribed . Cut back on eating foods that are high in sugar. Watching your portion sizes are important. Related to Type 2 diabetes mellitus without complication, without long-term current use of insulin Disease process See problem #1 Related to Leg p ain, bilateral See problem #1 Related to Pain in left leg Initiate Gabapentin 100mg orally twice daily Activities as tolerated Contact the office if symptoms worsen or do not improve within 14 days Related to Neuropathy Disease process Diabetes very well c ontrolled at this time Keep up the good work! Continue Ozempic as prescribed Related to Type 2 diabetes mellitus without complication, without long-term current use of insulin Disease process Your diabetes is wel l controlled at this time Check Blood sugars daily. It is important to take your medications as prescribed Cut back on eating foods that are high in sugar. Watching your portion sizes are important. Related to Type 2 diabetes mellitus without complication, without long-term current use of insulin Resting Echo to be scheduled Rel ated to Heart palpitations Exercise Continue walking 3-4 times a week Initiate some form of exercise in your daily routine as tolerated.Your meals should include more fruits, vegetables, whole grains, and lean meats. Avoid fried foods and fast foods because they contain a lot of saturated fats.Good to drink a glass of water before your meal to help control portion sizes.Avoid sitting in front of the television while eating. Related to Body mass index (bmi) 39.0-39.9, adult Your diabetes is wel l controlled at this time Check Blood sugars twice daily. Once in morning before eating and 1-2 hours after dinner.It is important to take your insulin everyday. Cut back on eating foods that are high in sugar. Watching your portion sizes are important.We have checked your A1c and will contact you with results Related to Type 2 diabetes mellitus without complication, without long-term current use of insulin Ultrasound scheduled for discuss results once received Related to Soft tissue mass Surgery scheduled fo r tomorrow.Please have all records sent to our office Related to Skin cancer of breast Great job on losing weight, you are moving in the right direction, keep up the good work Your meals should include more fruits, vegetables, whole grains, and lean meats. Avoid fried foods and fast foods because they contain a lot of saturated fats.Good to drink a glass of water before your meal to help control portion sizes.Avoid sitting in front of the television while eating. Related to Body mass index (bmi) 39.0-39.9, adult Your diabetes is wel l controlled at this time Check Blood sugars twice daily. Once in morning before eating and 1-2 hours after dinner.It is important to take your medications everyday. Cut back on eating foods that are high in sugar. Watching your portion sizes are important. Related to Type 2 diabetes mellitus without complication, without long-term current use of insulin Disease process Continue Gabapentin Related to N europathy Initiate some form o f exercise in your daily routine as tolerated.Your meals should include more fruits, vegetables, whole grains, and lean meats. Avoid fried foods and fast foods because they contain a lot of saturated fats.Good to drink a glass of water before your meal to help control portion sizes.Avoid sitting in front of the television while eating. Related to Body mass index (bmi) 39.0-39.9, adult Your blood pressure is slightly elevated in the office today Continue to take medications exactly as prescribedMonitor blood pressure at home Stay at a healthy weight Exercise as tolerated. Walking is a good choice. Try for at least 30 minutes on most days Avoid or limit alcoholtry to limit how much sodium you eat to less than 2300 mg a day Eat plenty of fruits and vegetables Do not smoke Notified provider if you experience severe headache or blurry vision Related to Elevated blood pressure reading without diagnosis of hypertension Check Blood sugars t wice daily. Once in morning before eating and 1-2 hours after dinner.It is important to take your medications everyday. Cut back on eating foods that are high in sugar. Watching your portion sizes are important.Ozempic dose increased to 0.5Farxiga prescription sent to pharmacy Related to Type 2 diabetes mellitus with diabetic neuropathy, without long-term current use of insulin Disease process Follow up with amadou rollins next month as aktieWimartínez request record from Dr. Corrigan's office Related to Skin lesion X-ray of neck ines d. Will contact you with results once received Related to Neck pain Check Blood sugars t wice daily. Once in morning before eating and 1-2 hours after dinner.It is important to take your medications everyday. Cut back on eating foods that are high in sugar. 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 Patient Care Teams Name Effective Dates (start - stop) Status Members No Information
--- OUTSIDE RECORDS SUMMARY | 2024-10-22 17:53 | XMS_ITS | Clinical Summary ---
Author Organization [facility] Address [address] [place] [address] Care Team Providers Care Recreation Facility Manager Name Role Phone Unavailable Primary Care Provider Unavailabl e Encounters Date Type Department Care Team Description 10/18/2024 External Device Data [facility] ABSTRACTION Provider, Abstract 10/18/2024 External Device Data [facility]STRA[facility] Provider, Abstract 10/15/2024 External Device Data [facility] [place]STRA[place] Provider, Abstract 10/14/2024 External Device Data [facility] Provider, Abstract 10/11/2024 External Device Data [facility] Provider, Abstract 09/27/2024 External Device Data [facility] [place]STRA[facility] Provider, Abstract 08/31/2024 External Device Data [facility] [place]STRA[facility] Provider, Abstract 08/30/2024 External Device Data [facility]STRA[facility] Provider, Abstract 08/23/2024 External Device Data [facility]STRA[facility] Provider, Abstract 08/16/2024 External Device Data [facility] ABSTRACTION Provider, Abstract from Last 3 Months Social History Tobacco Use Types Packs/Day Years Used Date Smoking Tobacco: Never Assessed Comments Unknown Sex and Gender Information Value Date Recorded Sex Assigned at Not on file Legal Sex Female 5:46 PM RETAIL AND PROMOTIONS COORDINATOR Gender Identity Not on file Sexual Orientation Not on file Plan of Treatment Health Maintenance Due Date Last Done Comments DIABETES ANNUAL RETINAL EXAM 1992 DIABETES MICROALBUMIN ANNUAL SCREEN 1992 LDL CHOLESTEROL ANNUAL 1992 DTAP/TDAP/TD VACCINES (1 - Tdap) 1993 HEPATITIS B VACCINES (1 of 3 - 19+ 3-dose series) 1993 FIT-DNA Q 3 years 2019 FIT/FOBT Q 1 year 2019 Flex Sig/CT Colonography Q 5 years 2019 DIABETES HBA1C Q 6 MONTHS 07/16/2023 01/14/2023, DIABETES ANNUAL FOOT EXAM 01/15/2024 01/14/2023 INFLUENZA VACCINE (#1) 2024 COVID-19 Vaccine ( season) 2024, 10/05/2020 ZOSTER VACCINE (1 of 2) 2024 BREAST CANCER SCREENING 04/12/2025 04/12/20 24, 03/21/2022, 08/27/2020 CERVICAL CANCER SCREENING 03/18/2027 03/18/2024 COLORECTAL SCREENING 04/17/2033 04/17/2023 Colorectal Cancer Screening 04/17/2033 Insurance [facility]
--- OUTSIDE RECORDS SUMMARY | 2024-10-22 17:53 | XMS_ITS | Encounter Summary ---
Author Organization [facility] Address [address] [place] [address] Phone Care Team Providers Care Mine Exploration Engineer Name Role Phone Benedict Grigsby MD, Jaime Santos Primary Care Provider + Fatou Chowdhury WARRANT SERVER Unavailable [phone] Derick Mittal MD Primary Care Provide r Encounter Details Date Type Department Care Team (Late st Contact Info) Description 12/20/2017 Orders Only [facility] ProviderGalina MD [address] [place] [id number] Social History Tobacco Use Types Packs/Day Years Used Date Smoking Tobacco: Never Smokeless Tobacco: Never Alcohol Use Standard Drinks/Week Comments Yes 1 (1 standard drink = 0.6 oz pur e alcohol) Comments No Sex and Gender Information Value Date Recorded Sex Assigned at Not on file Legal Sex Female 7:52 PM FOREIGN EXCHANGE CLERK Gender Identity Female 06/04/2021 10:01 PM CDT Sexual Orientation Straight 06/04/2021 10 :01 PM CDT documented as of this encounter Plan of Treatment Not on file documented as of this encounter Procedures Procedure Name Priority Date/Time Associated Diagnosis Comments DISCHARGE LABORATORY CUMULATIVE REPORT 12/20/2017 12:00 AM CDT documented in this encounter Results * DISCHARGE LABORATORY CUMULATIVE REPORT (12/20/2017 12:00 AM CDT) Narrative 12/20/2017 12:00 AM CDT Ordered by an unspecified provider. us Historical Provider LAB BLOOD ORDERABLES Rossy l Result documented in this encounter Visit Diagnoses Not on filedocumented in this encounter Additional Health Concerns Infection Onset Date Last Indicated Resolved Time COVID: Suspected 08/09/2020 08/09/2020 08/10/2020 2:37 AM FOREIGN EXCHANGE CLERK Respiratory Infection (PAULY), contact + droplet Comment:Automatically added due to negative COVID-19 result. 08/10/2020 08/10/2020 08/24/2020 3:0 6 AM FOREIGN EXCHANGE CLERK COVID: Suspected 12/25/2020 12/25/2020 12/25/2020 10:24 AM CDT COVID: Suspected 04/02/2021 04/02/2021 04/02/2021 3:29 PM CDT COVID19 04/02/2021 04/02/2021 04/16/2021 3:05 AM CDT COVID: Recovered Comment:Added based on recent COVID infection. 04/16/2021 04/16/2021 08/14/2021 3:[address] COVID: Suspected 09/22/2024 09/22/2024 09/22/2024 9:59 AM FOREIGN EXCHANGE CLERK COVID19 09/22/2024 09/22/2024 10/02/2024 3:06 AM FOREIGN EXCHANGE CLERK COVID: Recovered Comment:Added based on recent COVID infection. 10/02/2024 10/03/2024 documented as of this encounter Care Teams Mine Exploration Engineer Relationship Specialty Start Date End Date Jaime Mcmullen Jr., MD [address] [place] [address] PCP - General Internal Medicine 12/02/17 07/31/21 [place] [address] [place] [address] PCP - General Internal Medicine 08/01/21 [place] [address] [place] [address] Nurse Practitioner Cardiology 07/02/21 documented as of this encounter
--- OUTSIDE RECORDS SUMMARY | 2024-10-22 17:53 | XMS_ITS | Clinical Summary ---
Author Organization [facility] Address [address] [place] [address] Care Team Providers Care Anchor Tack Puller Name Role Phone Derick Mittal MD Primary Care Provider Source Comments [facility],non-owned Affiliates and Associated Physician Practices is amultiple site organization consisting of ambulatory clinics and hospital sitesin [place], [place], [place] and [place]. This disclosure is being madepursuant to the Care Everywhere program and may not contain all information available regarding this patient. Last updated 18.[facility] Allergies No known active allergies Medications * [...] morning Active Insulin Glargine, 1 Unit Dial, (Touchilo SoloStar) pen Inject 26 (twenty six) Units [...] (05/03/2012): colpo Aug 2011 - HPV changes Encounters Date Type Department Care Team Description 09/09/2024 Telephone [facility] - Endocrinology [address] ([place], [place]), [address] [place] [address] Melissa Keller MD Medication Prior Auth Request from Last 3 Months Immunizations Name Administration Dates Next Due Covid Moderna primary monovalent 12+ yr 0.5mL ,10/05/2020 Family History Medical History Relation Name Comments Cancer - Breast Neg Hx Cancer - Ovarian Neg Hx Social History Tobacco Use Types Packs/Day Years [...] 36.6 C (97.9 F) 07/06/2021 4:29 PM ENGINEERING ASSISTANT Respiratory Rate 17 04/17/2023 12:26 PM CDT Oxygen Saturation 100% 04/17/2023 12:26 PM CDT Inhaled Oxygen Concentration - - Weight 105.2 kg (232 lb) 04/12/2024 7:16 AM CDT Height 167.6 cm (5' 6 ) 04/12/2024 7:16 AM CDT Body Mass Index 37.45 04/12/2024 7:16 AM CDT Plan of Treatment Health Maintenance Due Date Last Done Comments COLOGUARD (AGES 45-75) - COLON CA SCREENING 1974 CT COLONOGRAPHY - COLON CA SCREENING 1974 FIT - COLON CA SCREENING 1974 FLEX SIG - COLON CA SCREENING 1974 HIV SCREENING 1989 HEPATITIS C SCREENING 07/25/1992 DTAP/TDAP/TD VACCINES (1 - Tdap) 1993 HEPATITIS B VACCINE (1 of 3 - 19+ 3-dose series) 1993 PNEUMOCOCCAL VACCINE 50+ (1 of 2 - PCV) 1993 DIABETES-STATIN 2014 DIABETES RETINOPATHY SCREENING 01/21/2019 DIABETES-SERUM CREATININE 01/08/20232021, 01/08/2022, 07/06/2021, Additional history exists DIABETES-FOOT EXAM WITH MONOFILAMENT 01/15/2024 01/14/2023 COVID-19 VACCINE ( season) 2024 11/01/2020, 10/05/2020 INFLUENZA VACCINE (#1) 2024 , 05/05/2020, 06/13/2019, Additional history exists DIABETES-HGB A1C 06/12/2024 12/11/2023, 02/2023, 01/14/2023, Additional history exists ZOSTER VACCINE (1 of 2) 2024 DEPRESSION SCREENING 08/10/2024 08/05/2023, 03/07/20 22 DIABETES - URINE PROTEIN SCREENING 08/10/2024 12/11/2023, 12/11/2023, 01/08/2022, Additional history exists MAMMOGRAM 04/12/2026 04/12/2024, 03/10, 03/21/2022, Additional history exists PAP with HPV 08/05/2028 08/05/2023, 07/11, 11/19/2020, Additional history exists COLON MONITORING 04/17/2033 04/17/2023, 04/17/2023 COLONOSCOPY - COLON CA SCREENING 04/17/2033 04/17/2023, 04/17/2023 Colorectal Cancer Screening 04/17/2033 HIB VACCINE Aged Out No longer eligi ble based on patient's age to complete this topic HPV VACCINE Aged Out No longer eligi ble based on patient's age to complete this topic MENINGOCOCCAL (Group B) VACCINE SHARED DECISION-MAKING Aged Out No longer eligible based on patient's age to complete this topic MENINGOCOCCAL GROUPS A/C/Y/W VACCINE Aged Out No longer eligible based on patient's age to complete this topic Procedures Procedure Name Priority Date/Time Associated Diagnosis Comments MAMMO BILAT SCREENING W KAI Routine 04/12/2024 7:32 AM CDT Visit for screening mammogram HPV GENOTYPE 16,18/45 REFLEXED Routine 08/05/2023 9:04 AM ENGINEERING ASSISTANT Pap smear, as part of routine gynecological examination ENDOSCOPY, COLON, SCREENING Routine 04/17/2023 11:28 AM CDT Screening for colon cancer HEMOGLOBIN A1C - POINT OF CARE (AMB) Routine 01/14/2023 Type 2 diabetes mellitus without complication, without long-term current use of insulin (HCC) COMPREHENSIVE METABOLIC PANEL STAT 07/06/2021 4:44 PM ENGINEERING ASSISTANT from Last 3 Months or Most Recently [...] HPV GENOTYPE 16,18/45 REFLEXED (08/05/2023 9:04 AM ENGINEERING ASSISTANT) Human papillomavirus Genotype 16 Positive(A) Negative [facility] ACCOUNT BILL Human papillomavirus Genotype 18/45 Negative Negative [facility] ACCOUNT BILL 08/05/2023 9:04 AM ENGINEERING ASSISTANT 08/05/2023 Narrative [facility] ACCOUNT BILL - 08/14/2023 7:10 AM ENGINEERING ASSISTANT No. of containers..01 ThinPrep Vial Resulting Agency Comment Lab Testing performed at: [address] [phone] Klever Humphrey MD [facility] ACCOUNT BILL [address] [place] [address] * ENDOSCOPY, COLON, SCREENING (04/17/2023 11:28 AM CDT) Report Endoscopy POC _ Patient Name: Melissa Batres Procedure Date: 04/17/2023 11:28 AM Date of : 1975 Admit Type: Outpatient Age: 47 Gender: Female Ethnicity: Not or Race: Black or Attending MD: Morales Roblero MD, [id number] _ Procedure: Colonoscopy Indications: Screening for colorectal [...] screening purposes. Procedure Code(s): --- Professional --- 96548, Colonoscopy, flexible; diagnostic, including collection of specimen(s) by brushing or washing, when performed (separate procedure) --- Technical --- 02279, Colonoscopy, flexible; diagnostic, including collection of specimen(s) by brushing or washing, when performed (separate procedure) Diagnosis Code(s): --- Professional --- Z12.11, Encounter for screening for malignant neoplasm of colon --- Technical --- Z12.11, Encounter for screening for malignant neoplasm of colon CPT copyright 2020 [employer]. All rights reserved. The codes documented in this report are preliminary and upon autographer review may be revised to meet current compliance requirements. Morales Roblero MD 04/17/2023 12:08:42 PM This report has been signed electronically. Number of Addenda: 0 Note Initiated On: 04/17/2023 11:28 AM [facility] ENDOSCOPY 04/17/2023 11:2 8 AM CDT Morales Roblero MD GI PROCEDURE ORDERAB LES [facility] ENDOSCOPY * HEMOGLOBIN A1C - POINT OF CARE (HgbA1C) (01/14/2023) Hemoglobin A1c POCT 6.5 % Expiration Date 09/28/24 Lot # [id number] QC Verified Yes Yes Blood BLOOD SPECIMEN / Unknown 01/14/2023 Melissa Keller MD LAB - POINT OF C ARE ORDERABLES * (ABNORMAL) COMPREHENSIVE METABOLIC PANEL (07/06/2021 4:44 PM ENGINEERING ASSISTANT) Glucose 640(HH) 70 - 105 mg/dL 07/06/2021 5:09 PM [facility] Sodium 128(L) 136 - 145 mmol/L 07/06/2021 5:09 PM [facility] Potassium 4.2 3.5 - 5.1 mmol/L 07/06/2021 5:09 PM [facility] Chloride 97(L) 98 - 107 mmol/L 07/06/2021 5:09 PM [facility] CO2 18(L) 23 - 31 mmol/L 07/06/2021 5:09 PM [facility] Calcium 9.2 8.4 - 10.4 mg/dL 07/06/2021 5:09 PM [facility] Anion Gap 13 8 - 18 mmol/L 07/06/2021 5:09 PM [facility] BUN 13 7 - 18.7 mg/dL 07/06/2021 5:09 PM [facility] Creatinine 1.45(H) 0.57 - 1.11 mg/dL 07/06/2021 5:09 PM [facility] Alkaline Phosphatase 84 40 - 150 U/L 07/06/2021 5:09 PM [facility] ALT 14 0 - 61 U/L 07/06/2021 5:09 PM [facility] AST 14 5 - 34 U/L 07/06/2021 5:09 PM [facility] Protein Total 8.0 6.4 - 8.3 gm/dL 07/06/2021 5:09 PM [facility] Albumin 3.9 3.5 - 5.2 gm/dL 07/06/2021 5:09 PM [facility] Bilirubin Total 0.6 0.2 - 1.2 mg/dL 07/06/2021 5:09 PM [facility] eGFR by MDRD 39(L) >60 mL/min/1.7 3m2 07/06/2021 5:09 PM [facility] eGFR by MDRD 47(L) >60 mL/min/1.7 3m2 07/06/2021 5:09 PM [facility] Blood BLOOD SPECIMEN / Unknown Venipuncture / Unknown 07/06/2021 4:44 PM ENGINEERING ASSISTANT 07/06/2021 4:49 PM ENGINEERING ASSISTANT Dennise Maier PA-C LAB - CHEMISTRY OR DERABLES [facility] [address] [place] [address] from Last 3 Months or Most Recently Relevant to Health Maintenance Advance Directives * FULL RESUSCITATION (Latest Code Status on File) Date Activated Date Inactivated Comments 08/20/2011 2:41 PM 08/22/2011 2:48 AM Care Teams Anchor Tack Puller Relationship Specialty Start Date End Date Derick Mittal MD [address] [place] [address] PCP - General Internal Medicine 03/21/22
[2024-10-22 17:56] VITALS: BP 166/92; PULSE 100; RESP 20; TEMP 36.5; O2SAT 99
[2024-10-22 18:06] LABS: Glucose Point of Care > 500 mg/dl (65-105)
[2024-10-22 20:20] LABS: Basophils Absolute Auto 0.1 K/mm3 (0.0-0.1); Basophils Percent Auto 0.6 % (0.2-1.2); Eosinophils Absolute Auto 0.1 K/mm3 (0-0.3); Eosinophils Percent Auto 1.2 % (0-4.4); Hematocrit 37.1 % (37.0-47.0); Immature Granulocyte Absolute 0.02 K/mm3 (0.00-0.031); Immature Granulocyte Percent A 0.2 % (0-0.5); Lymphocytes Absolute Auto 2.53 K/mm3 (0.9-3.2); Mean Corpuscular Volume 82.6 fl (80-100); Mean Platelet Volume 11.6 fl (7.4-10.4); Monocytes Absolute Auto 0.8 K/mm3 (0.1-0.6); Monocytes Percent Auto 7.9 % (2.6-8.5); Neutrophils Absolute Auto 6.6 K/mm3 (1.3-6.7); Neutrophils Percent Auto 65.1 % (45.5-73.1); Platelet Count Result 256 k/mm3 (150-375); Red Blood Count 4.49 M/mm3 (4.2-5.4); Red Cell Distribution Width 12.4 % (11.5-14.5); White Blood Count 10.1 K/mm3 (4.5-10.0)
[2024-10-22 20:28] LABS: Add Urine Microscopic? NO; Appearance Urine Clear (Clear); Bilirubin Urine Negative (Negative); Blood Urine Negative (Negative); Color Urine Yellow (Yellow); Glucose Urine UA 3+ mg/dL (Negative); Ketones Urine Negative (Negative); Leukocyte Esterase Ur Negative LEU/UL (Negative); Nitrate Urine Negative (Negative); Protein Urine Negative (Negative); Specific Grav Ur 1.025 (1.001-1.035); Urobilinogen Urine 0.2 mg/dL (<2.0)
--- NOTE | 2024-10-22 20:36 | ED_ITS ---
HPI - Recheck/Abnormal Lab/Rx General Chief Complaint: Recheck/Abnormal Lab/Rx Stated Complaint: BLOOD SUGAR >600 RECENT PREDNISONE TAPER Time Seen by Provider: 10/22/24 19:33 Source: patient Mode of arrival: ambulatory Limitations: no limitations History of Present Illness HPI narrative: This is a 49-year-old female that presents to the emergency department for elevated blood sugar. Reports she felt really thirsty and like she was peeing a lot. She checked her blood sugar today and it was 600. Reports she has not missed any of her anti diabetic medications. She does report recently being on a steroid taper and that her blood sugars have been hard to control since then. Denies fevers, shortness of breath, vomiting. Related Data Home Medications ?Medication ?Instructions ?Recorded ?Confirmed ?Last Taken ?Type doxycycline hyclate 100 mg capsule 100 mg PO BID 04/10/21 04/10/21 04/09/21 09:30 History gabapentin 100 mg capsule 200 mg PO HS 04/10/21 04/10/21 Unknown History semaglutide 0.25 mg or 0.5 mg (2 0.25 mg subcut WEEKLY 04/10/21 04/10/21 04/03/21 History mg/1.5 mL) subcutaneous pen injector (Ozempic) Allergies Allergy/AdvReac Type Severity Reaction Status Date / Time No Known Allergies Allergy Verified 10/22/24 17:52 Review of Systems 2 Review of Systems: CONSTITUTIONAL: Denies fever RESPIRATORY: Denies dyspnea. GASTROINTESTINAL: Denies abdominal pain, nausea, vomiting GENITOURINARY: Denies dysuria All systems reviewed & are unremarkable except as noted in HPI and below [facility] Past Medical History Medical History Diabetes mellitus type 2, controlled Diabetic neuropathy Healthy female adult Supraventricular tachycardia Surgical History Surgical History H/O tubal ligation Family History Family History Father Cerebrovascular accident Heart attack Hypertension History of open heart surgery Mother Hypertension Diabetes mellitus Social History Social History Smoking status: Never smoker Alcohol intake: current Drinks per week: 1 Substance use: never Substance use type: does not use Spiritual care concerns: No Exam 2 Narrative: GENERAL: Well-appearing, well-nourished, and in no acute distress. HEAD: Normocephalic, atraumatic. EYES: EOMI. ENT: Nares clear, no rhinorrhea or epistaxis. Mucous membranes moist. Oropharynx without tonsillar hypertrophy exudate or other lesions. CHEST: Clear to auscultation. No respiratory distress. No wheezes rales or rhonchi HEART: Regular rate and rhythm. No murmur heard. Normal peripheral pulses. ABDOMEN: Soft, nontender, nondistended, normal active bowel sounds. EXTREMITIES: Normal range of motion. No edema. SKIN: Warm, dry, no rash. NEURO: No focal deficits. Alert and oriented x3. PSYCH: Normal mood and affect Course Course Emergency Course: Patient updated on her workup and agrees with plan of care Vital Signs Vital signs: Vital Signs Temperature 97.7 F 10/22/24 17:56 Pulse Rate 100 10/22/24 17:56 Respiratory Rate 20 10/22/24 17:56 Blood Pressure 166/92 H 10/22/24 17:56 Pulse Oximetry 99 10/22/24 17:56 Oxygen Delivery Room Air 10/22/24 17:56 Temperature 97.7 F 10/22/24 17:56 Pulse Rate 83 10/22/24 20:40 Respiratory Rate 16 10/22/24 20:40 Blood Pressure 134/96 H 10/22/24 20:40 Pulse Oximetry 97 10/22/24 20:40 Oxygen Delivery Room Air 10/22/24 17:56 MDM - Recheck/Abnormal Lab/Rx MDM Narrative Medical decision making narrative: Patient presents emergency department for elevated blood sugar. Reports recently being on a steroid. She is afebrile and nontoxic appearing. Reports polyuria, but otherwise has no complaints. CBC with white blood cell count 10.1. Metabolic panel with blood sugar of 566, bicarb is normal, no anion gap. Beta hydroxybutyrate is not elevated. No ketones in her urine. Patient was hydrated. Recheck blood sugar 380. Patient was instructed to follow-up with her PCP. She was given warnings to return to the ER Differential Diagnosis Differential diagnosis: Likely other (Hyperglycemia, DKA) Lab Data Attestation: I reviewed the patient's lab results. 10/22/24 20:12 10/22/24 20:12 Labs: Lab Results 10/22/24 10/22/24 10/22/24 Range/Units 18:02 20:12 20:21 WBC 10.1 H (4.5-10.0) K/mm3 RBC 4.49 (4.2-5.4) M/mm3 Hgb 13.0 (12.0-15.0) g/dL Hct 37.1 (37.0-47.0) % MCV 82.6 (80-100) fl MCH 29.0 (26-34) pg MCHC 35.0 (32-36) g/dl RDW 12.4 (11.5-14.5) % Plt Count 256 (150-375) k/mm3 MPV 11.6 H (7.4-10.4) fl Immature Gran % (Auto) 0.2 (0-0.5) % Neut % (Auto) 65.1 (45.5-73.1) % Lymph % (Auto) 25.0 (18.3-44.2) % [place] % (Auto) 7.9 (2.6-8.5) % Eos % (Auto) 1.2 (0-4.4) % Baso % (Auto) 0.6 (0.2-1.2) % Lymph # (Auto) 2.53 (0.9-3.2) K/mm3 [place] # (Auto) 0.8 H (0.1-0.6) K/mm3 Eos # (Auto) 0.1 (0-0.3) K/mm3 Baso # (Auto) 0.1 (0.0-0.1) K/mm3 Abs Immat Gran (auto) 0.02 (0.00-0.031) K/mm3 Absolute Neuts (auto) 6.6 (1.3-6.7) K/mm3 Absolute Nucleated RBC 0.000 (0.0-0.012) K/mm3 Nucleated RBC % 0.0 (0.0-0.2) % Sodium 131 L (137-145) mmol/L Potassium 4.8 (3.4-5.0) mmol/L Chloride 96 L (98-107) mmol/L Carbon Dioxide 23 (22-30) mmol/L Anion Gap 12 (4-12) mmol/L BUN 12 (7-17) mg/dL Creatinine 0.84 (0.7-1.0) mg/dL Estim Creat Clear Calc 87 ml/min Estimated GFR > 60 (59 - ) Glucose 566 H* (65-110) mg/dL POC Capillary Glucose > 500 H* (65-105) mg/dl Calcium 10.0 (8.4-10.2) mg/dL Phosphorus 4.2 (2.5-4.5) mg/dL Magnesium 2.0 (1.6-2.3) mg/dL Total Bilirubin 0.6 (0.2-1.3) mg/dL AST 19 (14-36) U/L ALT 17 (6-35) U/L Alkaline Phosphatase 121 (38-126) U/L Total Protein 8.0 (6.3-8.2) g/dL Albumin 4.5 (3.5-5.1) g/dL Beta-Hydroxybutyrate/Acetoacetate 0.18 (0.02-0.27) mmol/L Urine Color Yellow (Yellow) Urine Appearance Clear (Clear) Urine pH 6.0 (5.0-9.0) Ur Specific [place] 1.025 (1.001-1.035) Urine Protein Negative (Negative) mg/dL Urine Glucose (UA) 3+ H (Negative) mg/dL Urine Ketones Negative (Negative) mg/dL Ur Blood (Man) Negative (Negative) Urine Nitrate Negative (Negative) Urine Bilirubin Negative (Negative) Urine Urobilinogen 0.2 (<2.0) mg/dL Leukocyte Esterase Rfl Negative (Negative) CARA/UL POC Urine HCG, Qual (Negative) 10/22/24 Range/Units 20:40 WBC (4.5-10.0) K/mm3 RBC (4.2-5.4) M/mm3 Hgb (12.0-15.0) g/dL Hct (37.0-47.0) % MCV (80-100) fl MCH (26-34) pg MCHC (32-36) g/dl RDW (11.5-14.5) % Plt Count (150-375) k/mm3 MPV (7.4-10.4) fl Immature Gran % (Auto) (0-0.5) % Neut % (Auto) (45.5-73.1) % Lymph % (Auto) (18.3-44.2) % [place] % (Auto) (2.6-8.5) % Eos % (Auto) (0-4.4) % Baso % (Auto) (0.2-1.2) % Lymph # (Auto) (0.9-3.2) K/mm3 [place] # (Auto) (0.1-0.6) K/mm3 Eos # (Auto) (0-0.3) K/mm3 Baso # (Auto) (0.0-0.1) K/mm3 Abs Immat Gran (auto) (0.00-0.031) K/mm3 Absolute Neuts (auto) (1.3-6.7) K/mm3 Absolute Nucleated RBC (0.0-0.012) K/mm3 Nucleated RBC % (0.0-0.2) % Sodium (137-145) mmol/L Potassium (3.4-5.0) mmol/L Chloride (98-107) mmol/L Carbon Dioxide (22-30) mmol/L Anion Gap (4-12) mmol/L BUN (7-17) mg/dL Creatinine (0.7-1.0) mg/dL Estim Creat Clear Calc ml/min Estimated GFR (59 - ) Glucose (65-110) mg/dL POC Capillary Glucose (65-105) mg/dl Calcium (8.4-10.2) mg/dL Phosphorus (2.5-4.5) mg/dL Magnesium (1.6-2.3) mg/dL Total Bilirubin (0.2-1.3) mg/dL AST (14-36) U/L ALT (6-35) U/L Alkaline Phosphatase (38-126) U/L Total Protein (6.3-8.2) g/dL Albumin (3.5-5.1) g/dL Beta-Hydroxybutyrate/Acetoacetate (0.02-0.27) mmol/L Urine Color (Yellow) Urine Appearance (Clear) Urine pH (5.0-9.0) Ur Specific [place] (1.001-1.035) Urine Protein (Negative) mg/dL Urine Glucose (UA) (Negative) mg/dL Urine Ketones (Negative) mg/dL Ur Blood (Man) (Negative) Urine Nitrate (Negative) Urine Bilirubin (Negative) Urine Urobilinogen (<2.0) mg/dL Leukocyte Esterase Rfl (Negative) CARA/UL POC Urine HCG, Qual Negative (Negative) Critical Care Time Critical Care Time Critical Care Time: No Discharge Plan Discharge Clinical Impression: Hyperglycemia Patient Disposition: Home, Self-Care Condition: Improved Instructions: Type 2 Diabetes Management for Adults (ED) Additional Instructions: Return to the emergency department if you experience fever, chest pain, shortness of breath, abdominal pain with nausea and vomiting, weakness, numbness, or any other symptoms that are concerning to you. Follow up with your primary care doctor Patient Language: Kiswahili Prescriptions: No Action gabapentin 100 mg capsule 200 mg PO HS Ozempic 0.25 mg or 0.5 mg(2 mg/1.5 mL) pen injector 0.25 mg SUBCUT WEEKLY Rx Instructions: Patient takes on thursday doxycycline hyclate 100 mg capsule 100 mg PO BID Rx Instructions: 10 day supply metoprolol tartrate 25 mg Tablet 25 mg PO Q12HR PRN (Reason: palpitations) Qty: 30 0RF Follow-up/Referrals: PHYSICIAN NOT ON STAFF,NONSTAFF [Primary Care Provider] -
[2024-10-22 20:38] LABS: Alanine Aminotransferase 17 U/L (6-35); Albumin Level 4.5 g/dL (3.5-5.1); Alkaline Phosphatase 121 U/L (38-126); Anion Gap 12 mmol/L (4-12); Aspartate Amino Transferase 19 U/L (14-36); Beta-Hydroxybutyrate/Acetoacetate 0.18 mmol/L (0.02-0.27); Bilirubin,Total 0.6 mg/dL (0.2-1.3); Blood Urea Nitrogen 12 mg/dL (7-17); Carbon Dioxide 23 mmol/L (22-30); Chloride 96 mmol/L (98-107); Estimated CRCL calculation 87 ml/min; Estimated Glomerular Filt Rate > 60; Glucose 566 mg/dL (65-110); Phosphorus 4.2 mg/dL (2.5-4.5); Potassium 4.8 mmol/L (3.4-5.0); Sodium 131 mmol/L (137-145)
[2024-10-22 20:40] VITALS: BP 134/96; PULSE 83; RESP 16; O2SAT 97
--- OUTSIDE RECORDS SUMMARY | 2024-10-22 20:42 | XMS_ITS | Encounter Summary ---
Author Organization [facility] Address [address] [place] [address] Phone Care Team Providers Care Senior Engineering Team Leader Name Role Phone Benedict Grigsby MD, Jaime Santos Primary Care Provider + Fatou Chowdhury REJECT OPENER Unavailable [phone] Derick Mittal MD Primary Care Provide r Encounter Details Date Type Department Care Team (Late st Contact Info) Description 12/20/2017 Orders Only [facility] ProviderGalina MD [address] [place] [id number] Social History Tobacco Use Types Packs/Day Years Used Date Smoking Tobacco: Never Smokeless Tobacco: Never Alcohol Use Standard Drinks/Week Comments Yes 1 (1 standard drink = 0.6 oz pur e alcohol) Comments No Sex and Gender Information Value Date Recorded Sex Assigned at Not on file Legal Sex Female 7:52 PM DIAMOND SIZER Gender Identity Female 06/04/2021 10:01 PM CDT [...] COVID: Suspected 08/09/2020 08/09/2020 08/10/2020 2:37 AM DIAMOND SIZER Respiratory Infection (PAULY), contact + droplet Comment:Automatically added due to negative COVID-19 result. 08/10/2020 08/10/2020 08/24/2020 3:0 6 AM DIAMOND SIZER COVID: Suspected 12/25/2020 12/25/2020 12/25/2020 10:24 AM CDT COVID: Suspected 04/02/2021 04/02/2021 04/02/2021 3:29 PM CDT COVID19 04/02/2021 04/02/2021 04/16/2021 3:05 AM CDT COVID: Recovered Comment:Added based on recent COVID infection. 04/16/2021 04/16/2021 08/14/2021 3:[address] COVID: Suspected 09/22/2024 09/22/2024 09/22/2024 9:59 AM DIAMOND SIZER COVID19 09/22/2024 09/22/2024 10/02/2024 3:06 AM DIAMOND SIZER COVID: Recovered Comment:Added based on recent COVID infection. 10/02/2024 10/03/2024 documented as of this encounter Care Teams Senior Engineering Team Leader Relationship Specialty Start Date End Date Jaime Mcmullen Jr., MD [address] [place] [address] PCP - General Internal Medicine 12/02/17 07/31/21 [place] [address] [place] [id number] PCP - General Internal Medicine 08/01/21 [place] [address] [place] [id number] Nurse Practitioner Cardiology 07/02/21 documented as of this encounter
--- OUTSIDE RECORDS SUMMARY | 2024-10-22 20:42 | XMS_ITS | Referral Summary ---
Author Organization [facility] [id number] [facility] Address [address] [facility] [place] [address] Care Team Providers Care Conditioner Tender Name Role Phone Fatou Chowdhury MEDICAL ENGINEER Unavailable Derick Mittal MD Primary Care Provide r Encounters Date Type Department Care Team Description 10/17/2024 Orders Only [facility] Virtual Care [address] [place] [phone] Bessie Moran NP 10/03/2024 Orders Only [facility] Virtual Care [address] [place] [phone] Bessie Moran NP 09/22/2024 Orders Only [facility] Virtual Care [address] [place] [phone] Bessie Moran NP 09/22/2024 10:45 AM GENERAL SURGERY PHYSICIAN ASSISTANT Office Visit [facility] Convenient Care at [address] [phone] David Yi NP COVID-19 (Primary [...] 09/14/2023 Assessment & Plan (09/14/2023 2:34 PM GENERAL SURGERY PHYSICIAN ASSISTANT): Patient has rotator cuff tendinitis of the [...] (06/05/2021): Added automatically from request for surgery [id number] COVID-19 virus infection 04/02/2021 Intramural leiomyoma of [...] on file Legal Sex Female 7:52 PM GENERAL SURGERY PHYSICIAN ASSISTANT Gender Identity Female 06/04/2021 10:01 PM CDT Sexual Orientation Straight 06/04/2021 10 :01 PM CDT Last Filed Vital Signs Vital Sign Reading Time Taken Comments Blood Pressure 132/86 09/22/2024 9:41 AM GENERAL SURGERY PHYSICIAN ASSISTANT Pulse 106 09/22/2024 9:41 AM GENERAL SURGERY PHYSICIAN ASSISTANT Temperature 36.9 C (98.4 F) 09/22/2024 9:41 AM GENERAL SURGERY PHYSICIAN ASSISTANT Respiratory Rate 20 09/22/2024 9:41 AM GENERAL SURGERY PHYSICIAN ASSISTANT Oxygen Saturation 98% 09/22/2024 9:41 AM GENERAL SURGERY PHYSICIAN ASSISTANT Inhaled Oxygen Concentration - - Weight 100.7 kg (222 lb) 09/22/2024 9:41 AM GENERAL SURGERY PHYSICIAN ASSISTANT Height 167.6 cm (5' 6 ) 09/22/2024 9:41 AM GENERAL SURGERY PHYSICIAN ASSISTANT Body Mass Index 35.83 09/22/2024 9:41 AM GENERAL SURGERY PHYSICIAN ASSISTANT Plan of Treatment Not on file Medical Devices Implanted Type Area Salvage Laborer Device Identifier Shelf Expiration Date Model / Serial / Lot [employer] [id number] Device Closure Vascade Od5 Fr Femoral Artery - [id number] - [id number] Implanted:Qty : 1 on 07/02/2021 by Devon Macias MD at [facility] Collagen Left: Femoral [employer] 02/25/2023 700-500DX -05U / [id number] [id number] / [id number] 720A [employer] [id number] Device Closure Vascade Od5 Fr Femoral Artery - [id number] - [id number] Implanted:Qty : 1 on 07/02/2021 by Devon Macias MD at [facility] Collagen Right: Femoral [employer] 09/02/2022 700-500DX -05U / [id number] [id number] / [id number] 125A [employer] [id number] Device Closure Vascade Od5 Fr Femoral Artery - [id number] - [id number] Implanted:Qty : 1 on 07/02/2021 by Devon Macias MD at [facility] Collagen Left: Femoral [employer] 02/25/2023 700-500DX -05U / [id number] 720A / [id number] 720A [employer] [id number] System 6-12fr Mvp Venous Closure Vascade - [id number] - [id number] Implanted:Qty : 1 on 07/02/2021 by Devon Macias MD at [facility] Collagen Right: Femoral [employer] 04/11/2023 800-612C- 10U / [id number] 07B / [id number] 07B [employer] [id number] System 6-12fr Mvp Venous Closure Vascade - [id number] - [id number] Implanted:Qty : 1 on 07/02/2021 by Devon Macias MD at [facility] Collagen Right: Femoral [employer] 04/11/2023 800-612C- 10U / [id number] 07B / [id number] [id number] Procedures Procedure Name Priority Date/Time Associated Diagnosis Comments POCT RAPID STREP Routine 09/22/2024 10:0 1 AM GENERAL SURGERY PHYSICIAN ASSISTANT COVID-19 POC INFLUENZA A/B, COVID-19 ANTIGEN Routine 09/22/2024 9:58 AM GENERAL SURGERY PHYSICIAN ASSISTANT COVID-19 BASIC METABOLIC PANEL Routine 06/05/2021 12:56 PM CDT Paroxysmal SVT (supraventricular tachycardia) POCT LIPID PANEL Routine 05/15/2021 4:26 PM CDT Lipid screening HEMOGLOBIN A1C Routine 12/20/2017 8:00 AM CDT from Last 3 Months or Most Recently Relevant to Health Maintenance Results * POCT rapid strep A (09/22/2024 10:01 AM GENERAL SURGERY PHYSICIAN ASSISTANT) Pathologist [facility] Rapid Strep A, POC Negative Negative Swab 09/22/2024 10:0 1 AM GENERAL SURGERY PHYSICIAN ASSISTANT David Yi MEDICAL ENGINEER POINT OF CARE TEST ORDERABLES F inal Result * (ABNORMAL) POC Influenza A/B, COVID-19 antigen (09/22/2024 9:58 AM GENERAL SURGERY PHYSICIAN ASSISTANT) Pathologist [facility] Influenza A Ag, POC Negative Negative [facility] Influenza B Ag, POC Negative Negative [facility] COVID-19 Ag POC Positive(A) Presumptive Negative, Invalid [facility] Nasal 09/22/2024 9:58 AM GENERAL SURGERY PHYSICIAN ASSISTANT David Yi POINT OF CARE TEST ORDERABLES F inal Result Performing Organization Address City/State/[facility] Co de Phone Number [facility] [address] [place] [address] * (ABNORMAL) Basic metabolic panel (06/05/2021 12:56 PM CDT) Pathologist [facility] Glucose 211(H) 65 - 99 mg/dL [facility] Comment: Fasting reference interval For someone without known diabetes, a glucose value >125 mg/dL indicates that they may have diabetes and this should be confirmed with a follow-up test. BUN 13 7 - 25 mg/dL [facility] Creatinine 0.96 0.50 - 1.10 mg/dL [facility] eGFR NON-AFR. KOSOVAN 71 > OR = 60 mL/min/1. 73m2 [facility] EGFR 82 > OR = 60 mL/min/1. 73m2 [facility] BUN/creat ratio NOT APPLICABLE 6 - 22 (calc) [facility] Sodium 136 135 - 146 mmol/L [facility] Potassium, pl 4.6 3.5 - 5.3 mmol/L [facility] Chloride 100 98 - 110 mmol/L [facility] CO2 29 20 - 32 mmol/L [facility] Calcium 9.4 8.6 - 10.2 mg/dL [facility] Blood specimen (specimen) 06/05/2021 12:56 PM CDT 06/05/2021 12:56 PM CDT Devon Macias MD LAB BLOOD ORDERABLES Final Result [facility] [address] [place] [id number] * POCT lipid panel (05/15/2021 4:26 PM [...] last revised on 2016 Testing performed by: [facility], [place] [address] Estimated Average Glucose 252 mg/dL [facility] Comment:Testing performed by : [facility], [place] [address] Blood specimen (specimen) 12/20/2017 8:00 AM CDT 12/20/2017 2:05 PM CDT Narrative [facility] EDWARDS - 12/20/2017 2:30 PM CDT Bessie Moran NP LAB BLOOD [place]AB[place] [address] [address] Department [place] [address] from Last 3 Months or Most Recently Relevant to Health Maintenance Additional Health Concerns Infection Onset Date Last Indicated COVID: Recovered Comment:Added based on recent COVID infection. 10/02/2024 025 Insurance [facility] Care Teams Conditioner Tender Relationship Specialty Start Date End Date Derick Mittal MD [address] [place] [address] PCP - General Internal Medicine 08/01/21 Fatou Chowdhury NP Nurse Practitioner Cardiology 07/02/21
--- OUTSIDE RECORDS SUMMARY | 2024-10-22 20:42 | XMS_ITS | Clinical Summary ---
Author Organization [facility] Address [address] [place] [address] Care Team Providers Care Chief Concierge Name Role Phone Unavailable Primary Care Provider [...] on file Legal Sex Female 5:46 PM IT SOLUTIONS ARCHITECT Gender Identity Not on file Sexual Orientation [...] 04/17/2033 04/17/2023 Colorectal Cancer Screening 04/17/2033 Insurance [facility] [employer]
--- OUTSIDE RECORDS SUMMARY | 2024-10-22 20:42 | XMS_ITS | Patient Health Summary ---
Author Organization [facility] [employer] Address [address] [place] [address] Care Team Providers Care Manager Employee Relations Name Role Phone Derick Mittal MD Primary Care Provider Note from [facility],non-owned Affiliates and Associated Physician Practices is amultiple site organization consisting of ambulatory clinics and hospital sitesin [place], [place], [place] and [place]. This disclosure is being madepursuant to the Care Everywhere program and may not contain all information available regarding this patient. Last updated 18.[facility] Allergies No known active allergies Medications * [...] 36.6 C (97.9 F) 07/06/2021 4:29 PM INTERNAL CORROSION SPECIALIST Respiratory Rate 17 04/17/2023 12:26 PM CDT [...] (STL)(Performed 06/06/2021) Performed for Diagnosis unknown * CA CONIZATION CERVIX,LOOP ELECTRD(Performed 06/06/2021) Performed for R87.613 [...] BILL - 03/20/2024 6:07 PM CDT Test(s) 657807- Atopobium vaginae; 305586- BVAB 2; 236196- Megasphaera 1 was developed and its performance characteristics determined by [employer]. It has not been cleared or approved by the Food and Drug Administration. Resulting Agency Comment Lab Testing performed at: [facility] [phone] Klever Huynh MD LAB - [facility] ACCOUNT BILL [address] [place] [address] * PAP IG RFLX HPV HR ASCUS [...] (ASCP) Electronically Signed by [facility] ACCOUNT BILL Comment:Rnee Ward MD, [place] thologist Comment . [facility] [...] Resulting Agency Comment Lab Testing performed at: [address] [phone] Klever Huynh MD LAB - PATHOLOGY/CYTO LOGY ORDERABLES Performing Organization Address [facility] Co de Phone Number [facility] ACCOUNT BILL [address] [place] [address] * (ABNORMAL) HPV RFLX 16,18/45 GENOTYPING (08/05/2023 9:04 AM INTERNAL CORROSION SPECIALIST) Human papillomavirus Aptima Positive( A) Negative [facility] ACCOUNT BILL Comment: This nucleic acid amplification test detects fourteen high-risk HPV types (16,18,31,33,35,39,45,51,52,56,58,59,66,68) without differentiation. 08/05/2023 9:04 AM INTERNAL CORROSION SPECIALIST 08/05/2023 Narrative [facility] ACCOUNT BILL - 08/14/2023 7:10 AM INTERNAL CORROSION SPECIALIST No. of containers..01 ThinPrep Vial Resulting Agency Comment Lab Testing performed at: [address] [phone] Klever Huynh MD LAB - MICROBIOLOGY O RDERABLES Performing Organization Address City/[facility]/ZIP Co de Phone Number [facility] ACCOUNT BILL [address] [place] [address] * (ABNORMAL) HPV GENOTYPE 16,18/45 REFLEXED (08/05/2023 9:04 AM INTERNAL CORROSION SPECIALIST) Human papillomavirus Genotype 16 Positive(A) Negative [facility] ACCOUNT BILL Human papillomavirus Genotype 18/45 Negative Negative [facility] ACCOUNT BILL 08/05/2023 9:04 AM INTERNAL CORROSION SPECIALIST 08/05/2023 Narrative [facility] ACCOUNT BILL - 08/14/2023 7:10 AM INTERNAL CORROSION SPECIALIST No. of containers..01 ThinPrep Vial Resulting Agency Comment Lab Testing performed at: [facility] [phone] Klever Huynh MD LAB - MICROBIOLOGY O RDERABLES [facility] ACCOUNT BILL [address] [place] [address] * ENDOSCOPY, COLON, SCREENING (04/17/2023 11:28 AM CDT) Report Endoscopy POC _ Patient Name: Melissa Batres Procedure Date: 04/17/2023 11:28 AM Date of : 1975 Admit Type: Outpatient Age: 47 Gender: Female Ethnicity: Not or Race: Black or Attending MD: Morales Roblero MD, [id number] _ Procedure: Colonoscopy Indications: Screening for colorectal malignant neoplasm Providers: Morales Robleor MD (Doctor), Stan Hutton RN Referring MD: [...] screening purposes. Procedure Code(s): --- Professional --- 69593, Colonoscopy, flexible; diagnostic, including collection of specimen(s) by brushing or washing, when performed (separate procedure) --- Technical --- 96028, Colonoscopy, flexible; diagnostic, including collection of specimen(s) by brushing or washing, when performed (separate procedure) Diagnosis Code(s): --- Professional --- Z12.11, Encounter for screening for malignant neoplasm of colon --- Technical --- Z12.11, Encounter for screening for malignant neoplasm of colon CPT copyright 2020 [employer]. All rights reserved. The codes documented in this report are preliminary and upon payroll manager review may be revised to meet current compliance requirements. Morales Roblreo MD 04/17/2023 12:08:42 PM This report has been signed electronically. Number of Addenda: 0 Note Initiated On: 04/17/2023 11:28 AM [facility] END[facility] 04/17/2023 11:2 8 AM CDT Morales Roblero MD GI PROCEDURE ORDERAB LES [facility] ENDOSCOPY * GLUCOSE - POINT OF CARE (AMB) STL (01/14/2023) Glucose 78 60 - 100 mg/dL Lot # [id number] Expiration Date 03/25/24 QC Verified Yes Yes Blood BLOOD SPECIMEN / Unknown 01/14/2023 Melissa Keller MD LAB - POINT OF C ARE ORDERABLES * HEMOGLOBIN A1C - POINT OF CARE (HgbA1C) (01/14/2023) Hemoglobin A1c POCT 6.5 % Expiration Date 09/28/24 Lot # [id number] QC Verified Yes Yes Blood BLOOD SPECIMEN / Unknown 01/14/2023 Melissa Keller MD LAB - POINT OF C ARE ORDERABLES * (ABNORMAL) GLUCOSE - POINT OF CARE (07/07/2021 2:36 AM INTERNAL CORROSION SPECIALIST) Only the most recent of4 resultswithin the time period is included. Glucose WB/POC 142(H) 70 - 106 mg/dL 07/09/2021 1:29 PM INTERNAL CORROSION SPECIALIST [facility] Specimen Type Cap Fingerstick 2020 1:29 PM INTERNAL CORROSION SPECIALIST [facility] Blood BLOOD SPECIMEN / Unknown 07/07/2021 2:36 AM INTERNAL CORROSION SPECIALIST 07/09/2021 1:29 PM INTERNAL CORROSION SPECIALIST Karl Pacheco MD LAB - POINT OF CARE ORDERABLES [facility] [address] [place] [address] * (ABNORMAL) URINALYSIS REFLEX MICROSCOPIC REFLEX CULTURE (07/06/2021 6:30 PM INTERNAL CORROSION SPECIALIST) Color UA Straw Straw, Yellow 07/06/2021 6:49 PM INTERNAL CORROSION SPECIALIST [facility] Clarity UA Clear Clear 07/06/2021 6:49 PM INTERNAL CORROSION SPECIALIST [facility] Glucose UA 3+(A) Negative 07/06/2021 6:49 PM INTERNAL CORROSION SPECIALIST [facility] Bilirubin UA Negative Negative 07/06/2021 6:49 PM INTERNAL CORROSION SPECIALIST [facility] Ketone UA Negative Negative 07/06/2021 6:49 PM INTERNAL CORROSION SPECIALIST [facility] Specific Vincent UA 1.021 1.005 - 1.030 07/06/2021 6:49 PM INTERNAL CORROSION SPECIALIST [facility] Blood UA Negative Negative 07/06/2021 6:49 PM INTERNAL CORROSION SPECIALIST [facility] pH UA 6.0 5.0 - 8.0 pH 07/06/2021 6:49 PM INTERNAL CORROSION SPECIALIST [facility] Protein UA Negative Negative 07/06/2021 6:49 PM INTERNAL CORROSION SPECIALIST [facility] Urobilinogen UA Negative Negative mg/dL 07/06/2021 6:49 PM INTERNAL CORROSION SPECIALIST [facility] Nitrite UA Negative Negative 07/06/2021 6:49 PM INTERNAL CORROSION SPECIALIST [facility] Leukocyte UA Negative Negative 07/06/2021 6:49 PM INTERNAL CORROSION SPECIALIST [facility] Urine Microscopy Urine microscopy not indicated 07/06/2021 6:49 PM INTERNAL CORROSION SPECIALIST [facility] Reflex Status Culture not indicated 07/06/2021 6:49 PM INTERNAL CORROSION SPECIALIST [facility] Urine URINE SPECIMEN OBTAINED BY CLEAN CATCH PROCEDURE / Unknown Collection / Unknown 07/06/2021 6:30 PM INTERNAL CORROSION SPECIALIST 07/06/2021 6:44 PM INTERNAL CORROSION SPECIALIST [facility] - 07/06/2021 6:49 PM INTERNAL CORROSION SPECIALIST Dennise Maier PA-C LAB - URINALYSIS O RDERABLES Performing Organization Address City/State/[facility] Co de Phone Number [facility] [address] [place] [address] * (ABNORMAL) CBC W AUTO DIFFERENTIAL (07/06/2021 4:44 PM INTERNAL CORROSION SPECIALIST) WBC 11.4(H) 4.4 - 10.7 x10E9/L 07/06/2021 4:53 PM INTERNAL CORROSION SPECIALIST [facility] WBC Corrected 07/06/2021 4:53 PM [facility] RBC 4.40 3.80 - 5.20 x10E12/L 07/06/2021 4:53 PM [facility] Hemoglobin 12.7 12.0 - 15.6 gm/dL 07/06/2021 4:53 PM [facility] Hematocrit 36.7 35.9 - 45.5 % 07/06/2021 4:53 PM [facility] MCV 83.4 80.7 - 98.3 fl 07/06/2021 4:53 PM [facility] MCH 28.9 26.7 - 34.0 pg 07/06/2021 4:53 PM [facility] MCHC 34.6 30.8 - 35.9 gm/dL 07/06/2021 4:53 PM [facility] Platelet Count 240 153 - 416 x10E9/L 07/06/2021 4:53 PM [facility] RDW-CV 11.8(L) 12.1 - 14.9 % 07/06/2021 4:53 PM [facility] MPV 12.2 9.4 - 12.9 fl 07/06/2021 4:53 PM [facility] Neutrophils % 70.2 44.0 - 73.0 % 07/06/2021 4:53 PM [facility] Lymphocytes % 20.9 20.0 - 43.0 % 07/06/2021 4:53 PM INTERNAL CORROSION SPECIALIST [facility] Monocytes % 6.5 5.0 - 13.0 % 07/06/2021 4:53 PM [facility] Eosinophils % 1.8 0.0 - 6.0 % 07/06/2021 4:53 PM [facility] Basophils % 0.3 0.0 - 2.0 % 07/06/2021 4:53 PM [facility] Immature Granulocytes 0.3 0 - 1 % 07/06/2021 4:53 PM [facility] Neutrophil Absolute 7.99(H) 2.01 - 7.14 x10E9/L 07/06/2021 4:53 PM [facility] Lymphocytes Absolute 2.38 1.07 - 3.94 x10E9/L 07/06/2021 4:53 PM [facility] Monocytes Absolute 0.74 0.26 - 1.07 x10E9/L 07/06/2021 4:53 PM [facility] Eosinophils Absolute 0.20 0 - 0.47 x10E9/L 07/06/2021 4:53 PM [facility] Basophils Absolute 0.03 0 - 0.08 x10E9/L 07/06/2021 4:53 PM [facility] Immature Granulocytes Absolute 0.03 0.00 - 0.06 x10E9/L 07/06/2021 4:53 PM [facility] nRBC Auto 0 /100 WBC 07/06/2021 4:53 PM [facility] Blood BLOOD SPECIMEN / Unknown Venipuncture / Unknown 07/06/2021 4:44 PM INTERNAL CORROSION SPECIALIST 07/06/2021 4:49 PM INTERNAL CORROSION SPECIALIST Dennise Maier PA-C LAB - HEMATOLOGY O RDERABLES [facility] [address] [place] [address] * (ABNORMAL) COMPREHENSIVE METABOLIC PANEL (07/06/2021 4:44 PM INTERNAL CORROSION SPECIALIST) [facility] Glucose 640(HH) 70 - 105 mg/dL 07/06/2021 5:09 PM [facility] Sodium 128(L) 136 - 145 mmol/L 07/06/2021 5:09 PM [facility] Potassium 4.2 3.5 - 5.1 mmol/L 07/06/2021 5:09 PM [facility] Chloride 97(L) 98 - 107 mmol/L 07/06/2021 5:09 PM [facility] CO2 18(L) 23 - 31 mmol/L 07/06/2021 5:09 PM [facility] Calcium 9.2 8.4 - 10.4 mg/dL 07/06/2021 5:09 PM [facility] Anion Gap 13 8 - 18 mmol/L 07/06/2021 5:09 PM [facility] BUN 13 7 - 18.7 mg/dL 07/06/2021 5:09 PM [facility] Creatinine 1.45(H) 0.57 - 1.11 mg/dL 07/06/2021 5:09 PM [facility] Alkaline Phosphatase 84 40 - 150 U/L 07/06/2021 5:09 PM [facility] ALT 14 0 - 61 U/L 07/06/2021 5:09 PM [facility] AST 14 5 - 34 U/L 07/06/2021 5:09 PM [facility] Protein Total 8.0 6.4 - 8.3 gm/dL 07/06/2021 5:09 PM [facility] Albumin 3.9 3.5 - 5.2 gm/dL 07/06/2021 5:09 PM [facility] Bilirubin Total 0.6 0.2 - 1.2 mg/dL 07/06/2021 5:09 PM [facility] eGFR by MDRD 39(L) >60 mL/min/1.7 3m2 07/06/2021 5:09 PM [facility] eGFR by MDRD 47(L) >60 mL/min/1.7 3m2 07/06/2021 5:09 PM [facility] Blood BLOOD SPECIMEN / Unknown Venipuncture / Unknown 07/06/2021 4:44 PM INTERNAL CORROSION SPECIALIST 07/06/2021 4:49 PM INTERNAL CORROSION SPECIALIST Dennise Maier PA-C LAB - CHEMISTRY OR DERABLES [facility] [address] [place] [address] * HCG BETA BLOOD QUANTITATIVE (07/06/2021 4:44 PM INTERNAL CORROSION SPECIALIST) Pathologist [facility] hCG Quantitative <1.20 mIU/mL 07/06/20 5:13 PM INTERNAL CORROSION SPECIALIST [facility] Blood BLOOD SPECIMEN / Unknown Venipuncture / Unknown 07/06/2021 4:44 PM INTERNAL CORROSION SPECIALIST 07/06/2021 4:49 PM INTERNAL CORROSION SPECIALIST Narrative [facility] - 07/06/2021 5:13 PM INTERNAL CORROSION SPECIALIST hCG Reference Range, mIU/mL: Males 0-2.0 Non [...] - CHEMISTRY OR DERABLES Performing Organization Address [facility] de Phone Number [facility] [address] [place] [address] * MAGNESIUM BLOOD (07/06/2021 4:44 PM INTERNAL CORROSION SPECIALIST) [facility] Magnesium 1.8 1.6 - 2.6 mg/dL 07/06/2021 5:07 PM INTERNAL CORROSION SPECIALIST [facility] Blood BLOOD SPECIMEN / Unknown Venipuncture / Unknown 07/06/2021 4:44 PM INTERNAL CORROSION SPECIALIST 07/06/2021 4:49 PM INTERNAL CORROSION SPECIALIST Dennise Maier PA-C LAB - CHEMISTRY OR DERABLES Performing Organization Address [facility] Co de Phone Number [facility] [address] [place] [address] * CARDIAC RHYTHM STRIP ORDER (06/07/2021 10:58 PM CDT) Only the most recent of2 resultswithin the time period is included. Narrative 06/07/2021 10:58 PM CDT Ordered by an unspecified provider. Scanned Document CARDIAC SERVICES ORD ERABLES * PATHOLOGY TISSUE EXAM (STL) (06/06/2021 11:14 AM CDT) Only the most recent of2 resultswithin the time period is included. Case Report Surgical Pathology Report Case: [id number] Authorizing Provider: Klever Huynh MD Collected: 06/06/2021 11:14 AM Ordering Location: [place] [facility] Received: 06/06/2021 01:25 PM Pathologist: Omar Crabtree [...] II) of cervix. 06/10/2021 12:54 PM CDT [facility] Gross Description Specimen A, received in formalin labeled [place], endocervical curettings are multiple fragments of bell mucoid material, 1.5 x 0.4 x 0.3 cm in aggregate. The specimen is filtered and entirely submitted in A1. Specimen B, received in formalin labeled [place], cervix cone is a 1 x 1 x 0.5 cm unoriented portion of bell mucosa. The possible endocervical resection margin is inked blue and the possible ectocervical resection margin is inked black. The specimen is sectioned and entirely submitted in B1-B2. JI/sherrell 06/10/2021 12:54 PM CDT [facility] Disclaimer All histochemical and/or immunohistochemical results are interpreted with controls that demonstrate appropriate staining reactions before reporting results. Note on use of immunocytochemistry reagents: This test was developed and its performance characteristic determined by [facility], Department of Laboratory Medicine. It has [...] interpreted with caution. 06/10/2021 12:54 PM CDT [facility] Embedded Images 06/10/2021 12:54 PM CDT [facility] Pathology/Cytology SPECIMEN FROM LESION OF UTERINE CERVIX OBTAINED BY CONE BIOPSY / Unknown 06/06/2021 11:14 AM CDT 06/06/2021 1:25 PM CDT Comment:Pre-op diagnosis: R87.613 Miscellaneous samples (specimen) SPECIMEN FROM LESION OF UTERINE CERVIX OBTAINED BY CONE BIOPSY / Unknown 06/06/2021 11:14 AM CDT 06/06/2021 1:25 PM CDT Comment:Pre-op diagnosis: R87.613 Klever Huynh MD LAB - PATHOLOGY/CYTO LOGY ORDERABLES [facility] [place] [address] * HCG URINE QUALITATIVE - POCT (IP) INTERFACED (06/06/2021 9:08 AM CDT) HCG Qual Urine Negative Negative 06/06/2021 9:13 AM CDT [facility] Urine URINE / Unknown 06/06/2021 9 :08 AM CDT 06/06/2021 9:13 AM CDT Klever Huynh MD LAB - POINT OF CARE ORDERABLES [facility] [address] [place] [address] * HCG URINE QUAL POCT NOTIFICATION (06/06/2021 9:01 AM CDT) Comment Notification Label Only - See Separate Report 06/06/2021 10:30 AM CDT [facility] Urine URINE / Unknown 06/06/2021 9 :01 AM CDT 06/06/2021 9:02 AM CDT Klever Huynh MD LAB - URINALYSIS ORD ERABLES Performing Organization Address City/[facility]/ZIP Co de Phone Number [facility] [address] [address] * (ABNORMAL) PAP IG LB+HPV APTIMA (11/19/2020 [...] Resulting Agency Comment Lab Testing performed at: [facility] [id number] Klever Huynh MD LAB - PATHOLOGY/CYTO LOGY ORDERABLES Performing Organization Address City/State/[facility] Co de Phone Number [facility] ACCOUNT BILL [address] [place] [address] * MAMMO BILAT DIAGNOSTIC (08/27/2020 9:54 AM INTERNAL CORROSION SPECIALIST) Anatomical Region Laterality Modality Breast Bilateral Mammography 08/27/2020 10:0 2 AM INTERNAL CORROSION SPECIALIST Impressions 08/27/2020 10:14 AM INTERNAL CORROSION SPECIALIST No evidence of malignancy. ASSESSMENT: BI-RADS Category 2: Benign finding(s). RECOMMENDATION: Return to annual bilateral screening mammogram. Findings and recommendation were discussed with the patient by Dr. Ordonez. Thank you for allowing us to participate in the care of your patient. [facility] utilizes [employer] as a reminder system to notify patients of their next recommended mammogram. Dictated by Jose Antonio Ordonez on 08/27/2020 10:05 AM I, Jonathan Hopkins, have personally reviewed the images and I agree with this report. *Reading Radiologist: Jonathan Hopkins on 08/27/2020 at 10:14 AM Narrative 08/27/2020 10:14 AM INTERNAL CORROSION SPECIALIST EXAMINATION: DIGITAL BILATERAL DIAGNOSTIC MAMMOGRAM, 08/27/2019. TECHNIQUE: [...] DIGITAL IMAGE BILATERAL G0202 (08/06/2020 8:31 AM INTERNAL CORROSION SPECIALIST) Only the most recent of4 resultswithin the time period is included. Anatomical Region Laterality Modality Breast Bilateral Mammography 08/06/2020 12:0 8 PM INTERNAL CORROSION SPECIALIST Impressions 08/06/2020 12:22 PM INTERNAL CORROSION SPECIALIST Questioned bilateral focal asymmetries ASSESSMENT: BIRADS Category 0: Incomplete - Needs additional imaging evaluation. RECOMMENDATION: Bilateral diagnostic mammogram and possible ultrasound Thank you for allowing us to participate in the care of your patient. *Reading Radiologist: Roseline Fair on 08/06/2020 at 12:22 PM Narrative 08/06/2020 12:22 PM INTERNAL CORROSION SPECIALIST EXAMINATION: Digital screening mammogram on 08/06/2020. Low-dose [...] R87.810 Performed by [facility] INSURANCE BILL Comment:Maye Starr Cytot echnologist (ASCP) Comment . [facility] INSURANCE [...] Resulting Agency Comment Lab Testing performed at: [address] [id number] Klever Huynh MD LAB - PATHOLOGY/CYTO LOGY ORDERABLES [facility] INSURANCE BILL [address] [place] [address] * (ABNORMAL) HPV 16/18 GENOTYPING (04/30/2018 1:31 PM CDT) Only the most recent of2 resultswithin the time period is included. Human papillomavirus Genotype 16 Positive(A) Negative [facility] INSURANCE BILL Human papillomavirus Genotype 18 Negative Negative [facility] INSURANCE BILL 04/30/2018 1:31 PM CDT 05/03/2018 Narrative [facility] INSURANCE BILL - 05/07/2018 7:08 PM CDT No. of containers..01 ThinPrep Vial Resulting Agency Comment [facility] [phone] Klever Huynh MD LAB - MICROBIOLOGY O RDPILI Performing Organization Address [facility] de Phone Number [facility] INSURANCE BILL [address] [place] [address] * (ABNORMAL) HPV DNA PROBE HIGH RISK [...] of containers..01 ThinPrep Vial Resulting Agency Comment [facility] [phone] Klever Huynh MD LAB - MICROBIOLOGY O LISA Performing Organization Address [facility] de Phone Number [facility] INSURANCE BILL [address] [place] [address] * (ABNORMAL) PAP IG LB + HPV HR (02/11/2017 2:19 PM CDT) Diagnosis [facility] ACCOUNT BILL Comment:NEGATIVE FOR INTRAEP ITHELIAL LESION AND MALIGNANCY. Specimen Adequacy [facility] ACCOUNT BILL Comment:Satisfactory for you luation. No endocervical component is identified. Clinician Provided ICD10 [facility] ACCOUNT BILL Comment:Z01.419 Performed by [facility] ACCOUNT BILL Comment:Artie Otero , Interior Surface Insulation Worker (ASCP) Comment . [facility] ACCOUNT BILL Note [...] Thin Prep Vial Resulting Agency Comment [facility] [place] [place] [phone] Klever Huynh MD LAB - PATHOLOGY/CYTO LOGY ORDERABLES [facility] ACCOUNT BILL [address] [place] [address] * US TRANSVAG ONLY (05/17/2012 4:45 PM CDT) Only the most recent of2 resultswithin the time period is included. Anatomical Region Laterality Modality Other Narrative 05/17/2012 4:45 PM CDT Osmin George RDMS 05/17/2012 4:45 PM [facility] ULTRASOUND of FEMALE PELVIS (non-, abdominal and/or [...] were seen, all are 2cm or less. Milker Machine: Osmin George RDMS Images will be scanned into the record. Interpreting Physician: Klever Huynh M.D. Procedure Note Osmin George RDMS - 05/17/2012 1:18 PM CDT [facility] ULTRASOUND of FEMALE PELVIS (non-, abdominal and/orendovaginal) [...] were seen, all are 2cm or less. Milker Machine: Osmin George RDMS Images will be scanned into the record. Interpreting Physician: Klever Huynh M.D. Klever Huynh MD ORDERABLES * GROSS + MICRO EXAM (09/05/2011 12:00 AM INTERNAL CORROSION SPECIALIST) Only the most recent of4 resultswithin the [...] Diagnosis I. Cervix, biopsy -- Koilocytosis GM/na Fraud Analyst na Pathologist Meri Juarez MD CPT code 19669 MISCELLANEOUS SAMPLE S / Unknown 09/05/2011 09/06/2011 8:38 AM INTERNAL CORROSION SPECIALIST Historical Provider LAB - PATHOLOGY/C YTOLOGY ORDERABLES Care Teams Manager Employee Relations Relationship Specialty Start Date End Date Derick Mittal MD [address] [place] [address] PCP - General Internal Medicine 03/21/22
--- OUTSIDE RECORDS SUMMARY | 2024-10-22 20:42 | XMS_ITS | Continuity of Care Document ---
Author Organization [employer] Address [address] [place] [address] Phone Care Team Providers Care Erosion Control Coordinator Name Role Phone Alphonso II Miles WALKER Unavailable Unavailable Allergies, Adverse Reactions, Alerts Substance Reaction Status Criticality No Known Allergies Active No Inform ation Medications Medication Instructions Dosage Effective Dates (start - stop) Status Comments Mounjaro 7.5 mg/0.5 mL subcutaneous pen injector inject (7.5MG) by subcutaneous route every week 7.5 MG - Active valsartan 80 mg tablet take 1 tablet by oral route every day 80 MG - Active Farxiga 10 mg tablet [...] - Active Pen Needle 31 gauge x 3/16 Inject 20 u sq daily - Active Vitamin D2 1,250 mcg (50,000 unit) capsule Take one capsule PO Q week - Active Contour Next Test Strips Monitor blood sugars twice daily - Active Microlet Lancet Check blood sugars twice daily - Active MOUNJARO [...] Pt inelig neg scrn depres CBC, INC PLATELETS AND DIFFERENTIAL GENERAL HEALTH PANEL COMPREHEN METABOLIC PANEL CMP HEMOGLOBIN A1C HGA1C, GLYCO LIPID PANEL MICROALBUMIN, QN (URINE) CREATININE, (U-R) THYROID STIMULATION HORMONE(TSH) 2024 VITAMIN D, 25-HYDROXY ROUTINE VENIPUNCTURE PREVENTATIVE-EST: 40-64 BODY MASS INDEX DOCD SYST BP >= 140 MM HG6 IT DIAST BP 80-89 MM HG FALL RISK ASSESSMENT DOC'D PRES/ABSN URINE INCON ASSESS Pt inelig neg scrn depres OFFICE [id number]-PSM-[id number] BODY MASS INDEX DOCD SYST BP >= [...] ASSESS Pt inelig neg scrn depres OFFICE ONSMX-RPV-HPRMVJOS BODY MASS INDEX DOCD SYST BP GE 130 - 139MM HG DIAST BP 80-89 MM HG C-REACTIVE PROTEIN (CRP) GENERAL HEALTH PANEL HEMOGLOBIN A1C HGA1C, GLYCO LIPASE LIPID PANEL MICROALBUMIN, QN (URINE) CREATININE, (U-R) RBC SED RATE, AUTOMATED ROUTINE VENIPUNCTURE FALL RISK ASSESSMENT DOC'D PRES/ABSN URINE INCON ASSESS IMMUN ADMIN (INC PERCUTANEOUS) SINGLE, F IRST INJ FLU VACC 4 ALVARADO 0.5mL DOSAGE OFFICE TRNOL-JSR-LINNCNLH BODY MASS INDEX DOCD SYST BP LT 130 MM HG DIAST BP 80-89 MM HG FALL RISK ASSESSMENT DOC'D PRES/ABSN URINE INCON ASSESS Pt inelig neg scrn depres GENERAL HEALTH PANEL HEMOGLOBIN A1C HGA1C, GLYCO LIPID PANEL ROUTINE VENIPUNCTURE OFFICE JBOAH-RPB-LRHUQMPQ BODY MASS INDEX DOCD SYST BP LT 130 MM HG DIAST BP < 80 MM HG FALL RISK ASSESSMENT DOC'D PRES/ABSN URINE INCON ASSESS Pt inelig neg scrn depres OFFICE ZVGBY-WCG-NCYHMTFN BODY MASS INDEX DOCD SYST BP LT 130 MM HG DIAST BP 80-89 MM HG FALL RISK ASSESSMENT DOC'D PRES/ABSN URINE INCON ASSESS Pt inelig neg scrn depres OFFICE LGIUU-BAC-AKQAKJVS BODY MASS INDEX DOCD SYST BP LT 130 MM HG DIAST BP >= 90 MM HG ROUTINE VENIPUNCTURE FALL RISK ASSESSMENT DOC'D PRES/ABSN URINE INCON ASSESS Pt inelig neg scrn depres OFFICE NUWKK-IXR-UQSJZNKI BODY MASS INDEX DOCD SYST BP LT 130 MM HG DIAST BP 80-89 MM HG Pt inelig neg scrn depres FALL RISK ASSESSMENT DOC'D PRES/ABSN URINE INCON ASSESS OFFICE ZEUOQ-FHD-QBPKZGQH BODY MASS INDEX DOCD SYST BP LT 130 MM HG DIAST BP < 80 MM HG FALL RISK ASSESSMENT DOC'D PRES/ABSN URINE INCON ASSESS Pt inelig neg scrn depres OFFICE LBIXR-IXJ-QMZDWHHE BODY MASS INDEX DOCD SYST BP LT 130 MM HG DIAST BP 80-89 MM HG FALL RISK ASSESSMENT DOC'D PRES/ABSN URINE INCON ASSESS Pt inelig neg scrn depres CBC, INC PLATELETS, NO DIFFERENTIAL COMPREHEN METABOLIC PANEL CMP HEMOGLOBIN A1C HGA1C, GLYCO LIPID PANEL MICROALBUMIN, QN (URINE) CREATININE, (U-R) THYROID STIMULATION HORMONE(TSH) 2021 ROUTINE VENIPUNCTURE OFFICE JNKWC-EHP-FOMKOSRQ BODY MASS INDEX DOCD SYST BP LT 130 MM HG DIAST BP < 80 MM HG NUTRITIONAL THERAPY; INITIAL ASSESSMENT AND INTERVENTION, INDIVIDUAL, EACH 15 RI Pt inelig neg scrn depres FALL RISK ASSESSMENT DOC'D PRES/ABSN URINE INCON ASSESS OFFICE FYDQB-[id number]-[id number] BODY MASS INDEX DOCD SYST BP LT 130 MM HG DIAST BP < 80 MM HG TELEPHONE E&M SERVICE BY A PHYSICIAN;5-1 0 MINUTES OF MEDICAL DISCUSSION SYST BP GE 130 - 139MM HG DIAST BP 80-89 MM HG Pt inelig neg scrn depres FALL RISK ASSESSMENT DOC'D PRES/ABSN URINE INCON ASSESS OFFICE XFXBA-TCS-[id number] BODY MASS INDEX DOCD SYST BP GE 130 - 139MM HG DIAST BP 80-89 MM HG FALL RISK ASSESSMENT DOC'D PRES/ABSN URINE INCON ASSESS MICROALBUMIN, QN (URINE) CREATININE, (U-R) VITAMIN D, 25-HYDROXY ROUTINE VENIPUNCTURE OFFICE CXHUW-IXW-UIXOWMRI BODY MASS INDEX DOCD SYST BP LT 130 MM HG DIAST BP >= 90 MM HG Pt inelig neg scrn depres FALL RISK ASSESSMENT DOC'D PRES/ABSN URINE INCON ASSESS CBC, INC PLATELETS, NO DIFFERENTIAL COMPREHEN METABOLIC PANEL CMP HEMOGLOBIN A1C HGA1C, GLYCO LIPID PANEL THYROID STIMULATION HORMONE(TSH) 2020 ROUTINE VENIPUNCTURE OFFICE HSRBD-KVM-WHXYNZWZ BODY MASS INDEX DOCD SYST BP LT 130 MM HG DIAST BP < 80 MM HG Pt inelig neg scrn depres FALL RISK ASSESSMENT DOC'D PRES/ABSN URINE INCON ASSESS OFFICE ZLEHC-QCV-BJMRFEN BODY MASS INDEX DOCD SYST BP LT 130 MM HG DIAST BP >= 90 MM HG FALL RISK ASSESSMENT DOC'D PRES/ABSN URINE INCON ASSESS Pt inelig neg scrn depres OFFICE OKRCW-WBS-FOMTTHD BODY MASS INDEX DOCD SYST BP GE 130 - 139MM HG DIAST BP 80-89 MM HG FALL RISK ASSESSMENT DOC'D PRES/ABSN URINE INCON ASSESS Pt inelig neg scrn depres HEMOGLOBIN A1C HGA1C, GLYCO ROUTINE VENIPUNCTURE EKG (ELECTROCARDIOGRAM) OFFICE ASVVX-UQZ-[id number] BODY MASS INDEX DOCD SYST BP LT 130 MM HG DIAST BP < 80 MM HG FALL RISK ASSESSMENT DOC'D PRES/ABSN URINE INCON ASSESS Pt inelig neg scrn depres CBC, INC PLATELETS, NO DIFFERENTIAL COMPREHEN METABOLIC PANEL CMP 0 HEMOGLOBIN A1C HGA1C, GLYCO LIPID PANEL MICROALBUMIN, QN (URINE) CREATININE, (U-R) THYROID STIMULATION HORMONE(TSH) 2019 ROUTINE VENIPUNCTURE OFFICE RRDMU-SCF-NCCGDFHT BODY MASS INDEX DOCD SYST BP LT 130 MM HG DIAST BP < 80 MM HG FALL PLAN OF CARE DOC'D URINE INCON PLAN DOC'D PRES/ABSN URINE INCON ASSESS BODY MASS INDEX DOCD SYST BP LT 130 MM HG DIAST BP 80-89 MM HG Pt inelig neg scrn depres HEMOGLOBIN A1C HGA1C, GLYCO MICROALBUMIN, QN (URINE) CREATININE, (U-R) ROUTINE VENIPUNCTURE OFFICE GVRJP-IIS-MPHURREA BODY MASS INDEX DOCD SYST BP GE [...] 2 9.9 mg/dL 8.6-10.4 Final Performed by:[facility] [employer] (532) Albumin 2024 14:24:0 2 4.5 g/dL 3.5-5.1 Final Performed by:[employer] (532) Protein, T 2024 14:24:0 2 8.9 g/dL 6.3-8.4 H Final Performed by:[employer] (532) Globulin 2024 14:24:0 2 4.4 Calc 1.4-3.7 H Final Performed by:[employer] (532) A/G 2024 14:24:0 2 1.0 Ratio 0.8-2.0 Final Performed by:[employer] (532) Bilirubin, T 2024 14:24:0 2 0.4 mg/dL 0.2-1.3 Final Performed by:[facility] [employer] (532) Alk Phos 2024 14:24:0 2 106 U/L 38-126 Final Performed by:[facility] [employer] (532) ALT 2024 14:24:0 2 16 U/L 0-32 Final Performed by:[facility] [employer] (532) AST 2024 14:24:0 2 23 U/L 10-36 Final Performed by:[facility] [employer] (532) eGFR 2024 14:24:0 2 86 mL/min/ 1.73m2 >60 Final CKD-EPI Equation (2020)Performed by:[employer] (532) Panel Description: Hemoglobin A1c/Hemoglobin.tot al in Blood Final % HgA1c 2024 14:24:0 2 5.7 % 0.0-5.6 H Final 5.6% or less - Normal range5.7-6.4% - Pre-diabetes6.5% or greater - Consistent with diabetesPerformed by:[facility] (532) eAG 2024 14:24:0 2 117 mg/dL Final Performed by:[facility] [employer] (532) Panel Description: Thyrotrop in [Units/volume] in [...] D2 therapy with LC/MS methodolgy(Referenc e lab).Performed by:[employer] (532) Panel Description: Lipid Panel Final Cholesterol 2024 14:24:0 2 184 mg/dL 0-200 Final Performed by:[facility] [employer] (532) HDL,D 2024 14:24:0 2 92 mg/dL 40-120 Final Performed by:[facility] (532) Triglycerides 2024 14:24:0 2 78 mg/dL 0-150 Final Performed by:[facility] [employer] (532) Chol/HDL 2024 14:24:0 2 2.0 Ratio 3.7-6.7 L Final Performed by:[facility] (532) LDLC 2024 14:24:0 2 76 mg/dL 0-100 Final Optimal <100Ne ar to above optimal 100 - 129Borderline High 130 -159High 160 - 189Very High > 190Performed by:[facility] (532) Panel Description: CBC W Auto Differential panel - Blood Final WBC 2024 14:24:0 2 9.50 K/uL 3.80-10.80 Final Performed by:[facility] (532) RBC 2024 14:24:0 2 4.66 M/uL 3.80-5.10 Final Performed by:[facility] (532) HGB 2024 14:24:0 2 13.6 g/dL 11.7-15.5 Final Performed by:[facility] (532) HCT 2024 14:24:0 2 40.2 % 35.0-45.0 Final Performed by:[facility] [employer] (532) MCV 2024 14:24:0 2 86.3 fL [...] % 16.0-46.0 Final Performed by:[facility] (532) [place] # 2024 14:24:0 2 0.68 K/uL 0.20-1.10 Final Performed by:[facility] (532) [place] % 2024 14:24:0 2 7.2 % 0.0-12.0 [...] Provider Providers Copied on Encounter PREVENTATIVE -EST: [facility], [address], [place], [place], [address] , tel: [phone] [facility] routine visit (chief complaint) Morbid obesityType 2 diabetes mellitus with hyperlipidemiaLong-t erm insulin useHyperlipidemia, unspecifiedOther fatigueHypertension secondary to endocrine disordersGeneral medical examination 5 Alphonso Aquino. [address] [place], [place], [address] , [place]. tel: [phone] Referring Provider: Miles Xavier, [address] [facility], [place], [address] . tel:[phone] [facility], [address], [place], [place], [address] , tel: [phone] [facility] No Information Alphonso Aquino. [address] [place], [place], [address] , . tel: [phone] OFFICE SLKPY-LAK-VH TAILED [facility], [address], [place], [place], [address] , tel: [phone] [facility] follow up (chief complaint) Piriformis syndrome of right sideType 2 diabetes mellitus with hyperlipidemiaHyperl ipidemia, unspecifiedHypertens ion secondary to endocrine disordersMorbid obesity 4 Alphonso Aquino. [address] [place], [place], [address] , [place]. tel: [phone] Referring Provider: Miles Xavier, [address] [facility], [place], [address] . tel:[phone] PREVENTATIVE -EST: [facility], [address], [place], [place], [address] , tel: [phone] [facility] routine visit (chief complaint) Chronic right-sided low back pain, unspecified whether sciatica presentType 2 diabetes mellitus with hyperlipidemiaHyperl ipidemia, unspecifiedClass 3 obesityElevated blood pressure readingVitamin D deficiencyGeneral medical examinationLong-term insulin useChronic hip pain, unspecified lateralityOther chronic pain Sep-0 4 Alphonso Aquino. [address] [place], [place], [address] , [place]. tel: [phone] Referring Provider: Miles Xavier, [address] [facility], [place], [address] . tel:[phone] OFFICE RPLCA-OSI-VE [facility], [address], [place], [place], [address] , [place] tel: [phone] [facility] stomach (chief complaint) DyspepsiaChange in bowel habits 4 Alphonso Aquino. [address] [place], [place], [address] , [place]. tel: [phone] Referring Provider: Derick Caldera, [facility] [address] [facility], [place], [address] . tel:[phone] [facility]ICE [facility], [address], [place], [place], [address] , [place] tel: [phone] [facility] Follow up (chief complaint) Type 2 diabetes mellitus with diabetic neuropathy, unspecified whether intermediate insulin useMixed hyperlipidemiaLong term (current) use of insulinHealth care maintenanceHistory of PSVT (paroxysmal supraventricular tachycardia) 3 Pablo Sepulveda. [address] [facility], [place], [place], [address] , [place]. tel: [phone] Referring Provider: Derick Caldera [facility] [address] [facility], [place], [address] . tel:[phone] [facility], [address], [place], [place], [address] , [place] tel: [phone] [facility] Family history of malignant neoplasm of digestive organs 3 Pablo Sepulveda. [address] [place], [place], [address] , [place]. tel: [phone] OFFICE EHHAQ-IJE-OK [facility], [address], [place], [place], [address] , [place] tel: [phone] [facility] Patient encounter (chief complaint) Type 2 diabetes mellitus with diabetic mononeuropathyLong term (current) use of insulinHealth care maintenanceObesity (BMI 30.0-34.9) 3 Pablo Sepulveda. [address] [place], [place], [address] , [place]. tel: [phone] Referring Provider: Derick Caldera [address] [facility], [place], [address] . tel:[phone] [facility], [address], [place], [place], [address] , [place] tel: [phone] [facility] Type 2 diabetes mellitus with hyperglycemia, with long-term current use of insulinLong term (current) use of insulin 3 aPblo Sepulveda. [address] [place], [place], [address] , [place]. tel: [phone] OFFICE OFZGO-QKE-XE [facility], [address], [place], [place], [address] , [place] tel: [phone] [facility] Follow Up of Patient encounter (chief complaint)C hronic Conditions (chief complaint) Mixed hyperlipidemiaType 2 diabetes mellitus with hyperglycemia, with long-term current use of insulinLong term (current) use of insulinType 2 diabetes mellitus with diabetic mononeuropathy 3 Maryjo Vasquez. [address] [place], [place], [address] , [place]. tel: [phone] Referring Provider: Derick Caldera [address] [place], [address] . tel:[phone] OFFICE KTQGJ-WKF-FL [facility], [address], [place], [place], [address] , [place] tel: [phone] [facility] Follow Up of Patient encounter (chief complaint) Type 2 diabetes mellitus with hyperglycemia, with long-term current use of insulinLong term (current) use of insulin 3 Pablo Sepulveda. [address] [place], [place], [address] , [place]. tel: [phone] Referring Provider: Derick Caldera [address] [facility] [place], [address] . tel:[phone] [facility], [address], [place], [place], [address] , [place] tel: [phone] [facility] Type 2 diabetes mellitus with diabetic neuropathy, unspecified whether intermediate insulin useVitamin D deficiencyMixed hyperlipidemia Oct 2 Pablo Caldera Derick. [address] [employer] [place], [address] , [place]. tel: [phone] Referring Provider: Derick aCldera, [address] [employer] [facility], [place], [address] . tel:[phone] OFFICE REPPK-TEZ-VS [facility] [employer] [facility], [address], [place], [place], [address] , [place] tel: [phone] [facility] Patient encounter (chief complaint) Type 2 diabetes mellitus with diabetic neuropathy, without long-term current use of insulinNeuropathyHai r lossAnxietyVitamin D deficiency 2 Pablo Fayjessica. [address] [place], [place], [address] , [place]. tel: [phone] Referring Provider: Derick Caldera, [address] [employer] [facility], [place], [address] . tel:[phone] OFFICE UQSPL[facility]HTQ-OQ [facility], [address], [place], [place], [address] , [place] tel: [phone] [facility] Sinus symptoms (acute) (chief complaint)P atient encounter (chief complaint) URI, acuteType 2 diabetes mellitus with diabetic neuropathy, without long-term current use of insulin 2 Pablo Fayjessica. [address] [employer] [place], [place], [address] , [place]. tel: [phone] Referring Provider: Derick Caldera [address] [facility], [place], [address] . tel:[phone] OFFICE VWQSX-URI-XR [facility], [address], [place], [place], [address] , [place] tel: [phone] [facility] diabetes f/u (chief complaint) Type 2 diabetes mellitus with diabetic neuropathy, without long-term current use of insulin Chalino-0 2 Max Bourne. [address] [place], [place], [address] , [place]. tel: [phone] Referring Provider: Tayla Santana, [address] [facility], [place], [address] . tel:[phone] OFFICE PNHOQ-RRI-DF [facility], [address], [place], [place], [address] , [place] tel: [phone] [facility] Diabetes (follow up) (chief complaint) Type 2 diabetes mellitus with diabetic neuropathy, without long-term current use of insulinClass 2 obesity due to excess calories with body mass index (BMI) of 36.0 to 36.9 in adult, unspecified whether serious comorbidity presentObesity (BMI 30.0-34.9)Anxiety Palomo-0 - 2 Mxa Bourne. [address] [place], [place], [address] , [place]. tel: [phone] Referring Provider: Derick Caldera, [address] [facility], [place], [address] . tel:[phone] [facility], [address], [place], [place], [address] , [place] tel: [phone] [facility] Type 2 diabetes mellitus with diabetic neuropathy, without long-term current use of insulin Dec-2 0-202 1 Justin Roberson. [address], [place] [address], [place], [place], [address] , [place]. tel: [phone] Referring Provider: Derick Caldera, [address] [facility], [place], [address] . tel:[phone] OFFICE GICCD-OLO-XQ [facility], [address], [place], [place], [address] , [place] tel: [phone] [facility] Diabetes (chief complaint) Type 2 diabetes mellitus with diabetic neuropathy, without long-term current use of insulin Dec-0 -202 1 Pablo Sepulveda. [facility] [place], [place], [address] , [place]. tel: [phone] Referring Provider: Derick Caldera, [address] [facility], [place], [address] . tel:[phone] TELEPHONE E&M SERVICE BY A PHYSICIAN;5- 10 MINUTES OF MEDICAL DISCUSSION [facility], [address], [place], [place], [address] , tel: [phone] [facility] Follow up (chief complaint) Type 2 diabetes mellitus with hyperglycemia, without long-term current use of insulin 0 1 Pablo Sepulveda. [address] [place], [place], [address] , . tel:[phone] Referring Provider: Derick Caldera [facility], [place], [address] . tel:[phone] [facility], [address], [place], [place], [address] , tel:[phone] [facility] No Information 1 Pablo Sepulveda. [address] [place], [place], [address] , . tel:[phone] OFFICE DPTXQ-OVU-ZX [facility], [address], [place], [place], [address] , tel:[phone] [facility] Diabetes (chief complaint) Type 2 diabetes mellitus with hyperglycemia, without long-term current use of insulinPSVT (paroxysmal supraventricular tachycardia)Obesity (BMI 30.0-34.9) 1 Pablo Sepulveda. [address] [place], [place], [address] , [place]. tel:[phone] Referring Provider: Derick Caldera [address] [facility], [place], [address] . tel:[phone] OFFICE IALGP-MEW-OQ [facility], [address], [place], [place], [address] , tel:[phone] [facility] routine (chief complaint)C hronic Conditions (chief complaint) Type 2 diabetes mellitus with diabetic neuropathy, without long-term current use of insulinClass 2 obesity due to excess calories with body mass index (BMI) of 36.0 to 36.9 in adult, unspecified whether serious comorbidity presentType 2 diabetes mellitus with other circulatory complicationsObesity , unspecified 1 Maryjo Vasquez. [address] [place], [place], [address] , [place]. tel: [phone] Referring Provider: Derick Caldera, [facility] [facility], [place], [address] . tel:[phone] OFFICE [facility], [address], [place], [place], [address] , [place] tel: [phone] [facility] Diabetes (follow up) (chief complaint) Type 2 diabetes mellitus without complication, without long-term current use of insulinNeuropathy 1 Max Bourne. [address] [place], [place], [address] , [place]. tel: [phone] Referring Provider: Derick Caldera, [facility] [place], [address] . tel:[phone] OFFICE KBVVP-NSF-QP [facility] [employer] [facility], [address], [place], [place], [address] , [place] tel: [phone] [facility] Bilateral posterior leg pain. (chief complaint) NeuropathyLeg pain, bilateralPain in left leg 1 Max Bourne. [address] [place], [place], [address] , [place]. tel: [phone] Referring Provider: Derick Caldera, [address] [facility], [place], [address] . tel:[phone] OFFICE NBCYE-EIS-MD [facility] [facility], [address], [place], [place], [address] , [place] tel: [phone] [facility] routine (chief complaint) Type 2 diabetes mellitus without complication, without long-term current use of insulin 1 Max Bourne. [address] [place], [place], [address] , [place]. tel: [phone] Referring Provider: Jaime Harman, [address] [place], [address] . tel:[phone] [facility]ICE [facility], [address], [place], [place], [address] , tel: [phone] [facility] routine (chief complaint) Type 2 diabetes mellitus without complication, without long-term current use of insulinHeart palpitations Jul-0 202 0 Max Bourne. [address] [place], [place], [address] , [place]. tel: [phone] Referring Provider: Jaime Harman, [address] [place] [address], [address] . tel:[phone] OFFICE [facility], [address], [place], [address] , [place] tel: [phone] [facility] LUMP ON BASE OF NECK (chief complaint)D iabetes (follow up) (chief complaint) Soft tissue massType 2 diabetes mellitus without complication, without long-term current use of insulinBody mass index (bmi) 39.0-39.9, adult Jan- 0 Max Bourne. [address] [place], [place], [address] , [place]. tel: [phone] Referring Provider: Jaime Harman, [address] [place] [address], [place], [address] . [phone] [facility], [address], [place], [place], [address] , [place] tel: [phone] [facility] Follow Up of follow up (chief complaint) Type 2 diabetes mellitus without complication, without long-term current use of insulinBody mass index (bmi) 39.0-39.9, adultSkin cancer of breast 0 Max Bourne. [facility] [place], [place], [address] , [place]. tel: [phone] Referring Provider: Jaime Harman, [address] [place], [address] . tel:[phone] OFFICE [facility]CP[facility], [address], [place], [place], [address] , [place] tel: [phone] [facility] DM/HTN (chief complaint) Type 2 diabetes mellitus with diabetic neuropathy, without long-term current use of insulinBody mass index (bmi) 39.0-39.9, adultElevated blood pressure reading without diagnosis of hypertensionNeuropat hy Max Aguilarelle. [address] [employer] [place], [place], [address] , [place]. tel: [phone] Referring Provider: Jaime Harman, [address] [place], [address] . tel:[phone] [facility], [address], [place], [place], [address] , tel: [phone] [facility] DM/HTN (chief complaint) Type 2 diabetes mellitus with diabetic neuropathy, without long-term current use of insulinNeck painSkin lesion Max Aguilarelle. [address] [employer] [place], [place], [address] , . tel: [phone] Referring Provider: Jaime Harman, [address] [address] [facility], [place], [address] . tel:[phone] [facility], [address], [place], [place], [address] , tel: [phone] [facility] Body mass index (BMI) 36.0-36.9, adultType 2 diabetes mellitus without complication, without long-term current use of insulin 8 Benedict Sandoval. [address] [employer] [place], [place], [address] . tel: [phone] Referring Provider: Jaime Harman, [address] [address] [facility], [place], [address] . tel:[phone] [facility], [address], [place], [place], [address] , tel: [phone] [facility] Type 2 diabetes mellitus without complication, without long-term current use of insulin 8 Maryjo Vasquez. [address] [employer] [place], [place], [address] , [place]. tel: [phone] Referring Provider: Jaime Harman, [address] [place], [address] . tel:[phone] [facility], [address], [place], [place], [address] , tel: [phone] [facility] Uncontrolled type 2 diabetes mellitus without complication, without long-term current use of insulin 8 Maryjo Vasquez. [address], [place], [id number] , . tel: [phone] Referring Provider: Jaime Harman, [address] [place], [address] . tel:[phone] [facility], [address], [place], [place], [id number] , tel: [phone] [facility] Uncontrolled type 2 diabetes mellitus without complication, without long-term current use of insulin Maryjo Vasquez. [address], [place], [address] , . tel: [phone] Referring Provider: Jaime Harman, [facility] [place], [address] . tel:[phone] [facility], [address], [place], [place], [address] , tel: [phone] [facility] Class 2 obesity due to excess calories without serious comorbidity with body mass index (BMI) of 39.0 to 39.9 in adultBody mass index (bmi) 39.0-39.9, adult 8 Benedict Mcbride. [address], [place], [address] . tel: [phone] Referring Provider: Jaime Harman, [address] [place], [address] . tel:[phone] [facility], [address], [place], [place], [address] , tel: [phone] [facility] Class 2 obesity due to excess calories without serious comorbidity with body mass index (BMI) of 39.0 to 39.9 in adultBody mass index (bmi) 39.0-39.9, adult Benedict Rae. [address], [place], [address] . tel: [phone] Referring Provider: Jaime Harman, [facility] [place], [address] . tel:[phone] [facility], [address], [place], [place], [address] , tel: [phone] [facility] Class 2 obesity due to excess calories without serious comorbidity with body mass index (BMI) of 39.0 to 39.9 in adult Winifred Heller. [address] [facility], [address], [place], [place], [address] , [place]. tel: [phone] Referring Provider: Jaime Harman, [facility] [place], [address] . tel:[phone] [facility], [address], [place], [place], [address] , tel: [phone] [facility] Class 2 obesity due to excess calories without serious comorbidity with body mass index (BMI) of 39.0 to 39.9 in adultBody mass index (bmi) 39.0-39.9, adult Benedict Mcbride. [address], [place], [address] . tel: [phone] Referring Provider: Jaime Harman, [facility] [place], [address] . tel:[phone] [facility], [address], [place], [place], [address] , tel: [phone] [facility] Body mass index (BMI) 39.0-39.9, adultEncounter for general adult medical examination without abnormal findingsEncounter for screening mammogram for breast cancer 7 Benedict Sandoval. [address], [place], [address] . tel: [phone] Referring Provider: Jaime Harman, [address] [place], [address] . tel:[phone] Family History Family Member Type Diagnosis Age At Onset Mother Problem (finding) diabetes mellitus type 2 Mother Problem (finding) hypertension Immunizations Vaccine Date Status Comments Fluzone Quad, split virus, 0.5mL dosage administered Source: New Immuniza tion Record Moderna COVID19 Vaccine, 0.5 mL per dose, 2 doses, administered 28 days apart administered Source: [employer] Moderna COVID19 Vaccine, 0.5 mL per dose, 2 doses, administered 28 days apart administered Source: [employer] Td (adult), adsorbed refused Source: New Immunization Record Fluzone Quad , spli t virus, 0.5mL dosage administered Source: Public [employer]gen[employer] y Payers Payer name Insurance type Covered democrat ID Authoriza tion(s) BCBS ACCESS BL [id number] BCBS ACCESS BL [id number] BCBS INACTIVE OUT OF STATE BL [id number] Social History Type Description Quantity Date Captured [...] when repeated 04/[address] Roblero of [facility]. Patient to have negative screening mammogram for breast cancer back in 04/2024. . Reason For Referral Reason For Referral No Information Plan Of Treatment Date Type Action Status Referral Referred To: [address] [place], [phone] Ordered: SLEEP STUDY, UNATTENDED ordered Referral Ordered: Physical Therapy [facility] Physical Therapy [facility] (related to Piriformis syndrome of right side) ordered Referral Referred To: Physical Therapy [address] [place], [phone] Ordered: Referrals: Physical Therapy. Location: [facility] Physical [facility]. Evaluate and treat - Level 2 ordered Referral Ordered: X-RAY EXAM OF HIPS (3-4 VIEWS) Bilateral ordered Referral Ordered: X-RAY EXAM OF LUMBAR SPINE, A/P & LAT ordered Referral Ordered: EYE EXAM ESTABLISHED PAT ordered Referral Referred To: [facility] [address] [place], [place], [phone] Ordered: Referrals: Dermatology. [facility]. Location: [facility]. Evaluation/diagnostic/treatment - Level 3 ordered Referral Referred To: [address], [phone] Ordered: 2D echocardiography ordered Referral Ordered: EKG (ELECTROCARDIOGRAM) ordered Referral Ordered: Ultrasound examination of head or neck tissues ordered Referral Ordered: Radiologic examination, spine, cervical; 2 or 3 views ordered Appointment Melissa Batres BOOKED Future Order: Radiology Order Ra diologic examination, spine, cervical; 2 or 3 views ([id number]), Sent on: Sent History Of Present Illness [...] when repeated 04/[address] Roblero of [facility]. Patient to have negative screening mammogram for [...] back in November 2022. No longer sees parlor chaperone Dr. Sherley Keller with [facility]. She only saw her one time 01/2023 [...] smear two weeks ago ordered by her [employer]UVENILE [employer]RECTIONAL OFFICER and it was negative. She had a [...] pap test. She usu makes appt w/ [facility] to get her mammogram the same day [...] HCMNever had a colonoscopy. Mammogram done at [facility] 03/2022 and was benign. [place] to send her the form for her mammogram. She is utd with pap. Follows up with Dr. Humphrey Follow Up of Patient encounter Chronic Conditions *See Chronic Conditions HPI Mar-10-2023 Follow Up of Patient encounter P t is hr for f/u Derm Going to [place] at Dr. Myers's [facility]. The med is working well [...] week. Mucous draining started Thursday. Went to [facility] and got the COVID test on Thursday and found out yesterday it was neg. Took 2 at home tests prior to that they were also neg. Sxs began with a sore throat. +cough. Took Diabetic Tussin and Vanlue cough drops.. No f/c. Cough is productive [...] getting BG readings of 500-600s. She called database administration associate MD and he advised her to go to the ED. Pt went to [facility]. There her BG was closer to 600 per pt. Pt states she was given IVF and placed on insulin gtt. Three hours later her BG went from 540 to 140and she was d/c'd home. She had an ablation on last at [facility] for her SVT. She has f/u on [...] laboratory studies please get sleep study performed claims coordinator will contact you shortly by either phone call and/or mail with details on how to get this referral and/or study scheduled/completed. If you do not hear from this office within one week regarding this process then please contact the office at that time. Related to Other fatigue as above Related to Long-term insulin use continue with rosuvastatin 10 mg daily Related to Hyperlipidemia, unspecified continue weight loss efforts Related to Morbid obesity your blood pressure is elevated and not at goal of less than 130/80 please increase valsartan up to 80 mg daily. 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 as evidenced by your most recent A1c value of 6.3% back in 04/2024 await laboratory studies for repeat A1c check increase dose of Mounjaro up to 7.5mg weekly at this time continue with Basaglar 26 units at night daily continue with farxiga 10mg daily continue diabetic diet Related to Type 2 diabetes mellitus with hyperlipidemia I am pleased with your weight loss continue weight loss efforts Related to Morbid obesity continue with rosuvastatin 10 mg daily Related to Hyperlipidemia, unspecified this is a new problem/diagnosis for you Your blood pressure is elevated and not at goal of less than 130/80 start valsartan 40 mg daily in the manner in which we discussed. 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 2.5 mg dose weekly has been sent to your pharmacy take as directed Please STOP ozempic Continue with Toujeo 26 units daily. Renewal has been sent to your pharmacy continue with farxiga 10mg daily continue diabetic diet Related to Type 2 diabetes mellitus with hyperlipidemia continue weight loss efforts Related to Class 3 obesity this is a new problem your blood pressure is elevated today and not normal at less than 120/80 await laboratory studies record blood pressures in the manner which we discussed and bring in those readings at next office visit please get sleep study performed Reevaluation next office visit six weeks Related to Elevated blood pressure reading as above Related to Long-term insulin use this is a new problem please get x-rays performed of your low back and hips; further information once these are completed claims coordinator will contact you shortly by either [...] laboratory studies Related to Vitamin D deficiency resolved at this time, however, follow up with her PCP here this office in one month Related to Change in bowel habits take pantoprazole 40 mg daily for the next one month await laboratory studies follow up here in the office at that time with your PCP Related to Dyspepsia Stable. Pt had ablat ion last yr. No more episodes of PSVT Related to History of PSVT (paroxysmal supraventricular tachycardia) Given Flu vaccine to day Pt to call for mammogram and pap test appt. Gyne Dr. HumphreyUp to date with colonoscopy 04/2023 To repeat in 5 yrs Related to Health care maintenance On Toujeo Related to buttermaker helper (current) use of insulin --Start Rosuvastatin Related to Mixed hyperlipidemia Your Diabetes is wel l controlled. Your [...] diabetes mellitus with diabetic neuropathy, unspecified whether intermediate insulin use Congratulations on y our 4 lb weight loss. Keep up the good work! Related to Obesity (BMI 30.0-34.9) On Toujeo 26 u at night Related to buttermaker helper (current) use of insulin Your Diabetes is wel l controlled. Your last A1c was 6.9 from endo's office per pt. Goal for your fasting blood glucose (BG) is less than 130. 2 hours after eating, your BG goal is less than 180. Continue your medications. Eat less processed sugars and fat Related to Type 2 diabetes mellitus with diabetic mononeuropathy --Refer for colonosc opy with Dr. Roblero: GI. --Up to date Mammogram done at [facility] 03/2022 and was benign. Next due 03/2023. [facility] to send her information to get mammogram. --Pt is up to date with pap test. She follows up with Dr. Humphrey: gyne Related to Health care maintenance Increase Toujeo to 30 units Rela chiara to buttermaker helper (current) use of insulin Keep your blood suga rs at a [...] Type 2 diabetes mellitus with diabetic mononeuropathy We will continue to monitor your cholesterol [...] insulin Disease process On Toujeo Related to nursing home (current) use of insulin Your Diabetes is [...] in adult, unspecified whether serious comorbidity present Your diabetes is unc ontrolledCheck Blood sugars [...] neuropathy, without long-term current use of insulin symptomatic/stableIn itiate buspirone 5 mg three times [...] cardio Related to PSVT (paroxysmal supraventricular tachycardia) See plan #1 Related to Type 2 diabetes mellitus with diabetic neuropathy, without long-term current use of insulin Obesity means having so much body fat [...] in adult, unspecified whether serious comorbidity present Increase your Gabape ntin to 300mg at [...] Disease process See problem #1 Related to Pain in left leg See problem #1 Related to Leg p ain, bilateral Initiate Gabapentin 100mg orally twice daily Activities [...] to Body mass index (bmi) 39.0-39.9, adult Ultrasound scheduled for discuss results once received Related to Soft tissue mass Your diabetes is wel l controlled at [...] complication, without long-term current use of insulin Surgery scheduled fo r tomorrow.Please have all [...] process Continue Gabapentin Related to N europathy Your blood pressure is slightly elevated in [...] blood pressure reading without diagnosis of hypertension Initiate some form o f exercise in [...] to Body mass index (bmi) 39.0-39.9, adult Check Blood sugars t wice daily. Once [...] up with amadou rollins next month as katieWimartínez request record from Dr. Corrigan's office Related to Skin lesion X-ray of neck ordere d. Will contact you with results once [...] Mental Status Date Cognitive Assessment Orientation - Moseley ed to time, place, person, situation. Patient Care Teams Name Effective Dates (start - stop) Status Members No Information
--- OUTSIDE RECORDS SUMMARY | 2024-10-22 20:42 | XMS_ITS | Clinical Summary ---
Author Organization [facility] [employer] Address [address] [place] [address] Care Team Providers Care Pediatric Licensed Practical Nurse Name Role Phone Derick Mittal MD Primary Care Provider Source Comments [facility] [employer],non-owned Affiliates and Associated Physician Practices is amultiple site organization consisting of ambulatory clinics and hospital sitesin [place], [place] and [place]. This disclosure is being madepursuant to the Care Everywhere program and may not contain all information available regarding this patient. Last updated 18.[facility] [employer] Allergies No known active allergies Medications * [...] Type Department Care Team Description 09/09/2024 Telephone [facility] - Endocrinology [address], [address] [place] [address] Melissa Keller MD Medication Prior [...] 36.6 C (97.9 F) 07/06/2021 4:29 PM FIRE WATCHER Respiratory Rate 17 04/17/2023 12:26 PM CDT [...] GENOTYPE 16,18/45 REFLEXED Routine 08/05/2023 9:04 AM FIRE WATCHER Pap smear, as part of routine gynecological examination ENDOSCOPY, COLON, SCREENING Routine 04/17/2023 11:28 AM CDT Screening for colon cancer HEMOGLOBIN A1C - POINT OF CARE (AMB) Routine 01/14/2023 Type 2 diabetes mellitus without complication, without long-term current use of insulin (HCC) COMPREHENSIVE METABOLIC PANEL STAT 07/06/2021 4:44 PM FIRE WATCHER from Last 3 Months or Most Recently [...] HPV GENOTYPE 16,18/45 REFLEXED (08/05/2023 9:04 AM FIRE WATCHER) Human papillomavirus Genotype 16 Positive(A) Negative [facility] ACCOUNT BILL Human papillomavirus Genotype 18/45 Negative Negative [facility] ACCOUNT BILL 08/05/2023 9:04 AM FIRE WATCHER 08/05/2023 Narrative [facility] ACCOUNT BILL - 08/14/2023 7:10 AM FIRE WATCHER No. of containers..01 ThinPrep Vial Resulting Agency Comment Lab Testing performed at: [address] [phone] Klever Humphrey MD [facility] ACCOUNT BILL [address] [place] [address] * ENDOSCOPY, COLON, SCREENING (04/17/2023 11:28 AM CDT) Report Endoscopy POC _ Patient Name: Melissa Batres Procedure Date: 04/17/2023 11:28 AM Date of : 1975 Admit Type: Outpatient Age: 47 Gender: Female Ethnicity: Not or Race: Black or Attending MD: Morales Roblero MD, [id number] _ Procedure: Colonoscopy Indications: Screening for colorectal [...] screening purposes. Procedure Code(s): --- Professional --- 39500, Colonoscopy, flexible; diagnostic, including collection of specimen(s) by brushing or washing, when performed (separate procedure) --- Technical --- 17933, Colonoscopy, flexible; diagnostic, including collection of specimen(s) by brushing or washing, when performed (separate procedure) Diagnosis Code(s): --- Professional --- Z12.11, Encounter for screening for malignant neoplasm of colon --- Technical --- Z12.11, Encounter for screening for malignant neoplasm of colon CPT copyright 2020 [employer]. All rights reserved. The codes documented in this report are preliminary and upon utility person review may be revised to meet current compliance requirements. Morales Roblero MD 04/17/2023 12:08:42 PM This report has been signed electronically. Number of Addenda: 0 Note Initiated On: 04/17/2023 11:28 AM [facility] 04/17/2023 11:2 8 AM CDT Morales Roblero MD GI PROCEDURE ORDERAB LES [facility] * HEMOGLOBIN A1C - POINT OF CARE (HgbA1C) (01/14/2023) Hemoglobin A1c POCT 6.5 % Expiration Date 09/28/24 Lot # [id number] QC Verified Yes Yes Blood BLOOD SPECIMEN / Unknown 01/14/2023 Melissa Keller MD LAB - POINT OF C ARE ORDERABLES * (ABNORMAL) COMPREHENSIVE METABOLIC PANEL (07/06/2021 4:44 PM FIRE WATCHER) Glucose 640(HH) 70 - 105 mg/dL 07/06/2021 5:09 PM [facility] Sodium 128(L) 136 - 145 mmol/L 07/06/2021 5:09 PM [facility] Potassium 4.2 3.5 - 5.1 mmol/L 07/06/2021 5:09 PM [facility] Chloride 97(L) 98 - 107 mmol/L 07/06/2021 5:09 PM [facility] CO2 18(L) 23 - 31 mmol/L 07/06/2021 5:09 PM [facility] Calcium 9.2 8.4 - 10.4 mg/dL 07/06/2021 5:09 PM [facility] Anion Gap 13 8 - 18 mmol/L 07/06/2021 5:09 PM [facility] BUN 13 7 - 18.7 mg/dL 07/06/2021 5:09 PM [facility] Creatinine 1.45(H) 0.57 - 1.11 mg/dL 07/06/2021 5:09 PM [facility] Alkaline Phosphatase 84 40 - 150 U/L 07/06/2021 5:09 PM [facility] ALT 14 0 - 61 U/L 07/06/2021 5:09 PM [facility] AST 14 5 - 34 U/L 07/06/2021 5:09 PM [facility] Protein Total 8.0 6.4 - 8.3 gm/dL 07/06/2021 5:09 PM [facility] Albumin 3.9 3.5 - 5.2 gm/dL 07/06/2021 5:09 PM [facility] Bilirubin Total 0.6 0.2 - 1.2 mg/dL 07/06/2021 5:09 PM [facility] eGFR by MDRD 39(L) >60 mL/min/1.7 3m2 07/06/2021 5:09 PM [facility] eGFR by MDRD 47(L) >60 mL/min/1.7 3m2 07/06/2021 5:09 PM [facility] Blood BLOOD SPECIMEN / Unknown Venipuncture / Unknown 07/06/2021 4:44 PM FIRE WATCHER 07/06/2021 4:49 PM FIRE WATCHER Dennise Maier PA-C LAB - CHEMISTRY OR DERABLES [facility] [address] [place] [address] from Last 3 Months or Most Recently Relevant to Health Maintenance Advance Directives * FULL RESUSCITATION (Latest Code Status on File) Date Activated Date Inactivated Comments 08/20/2011 2:41 PM 08/22/2011 2:48 AM Care Teams Pediatric Licensed Practical Nurse Relationship Specialty Start Date End Date Derick Mittal MD [address] [place] [address] PCP - General Internal Medicine 03/21/22
--- OUTSIDE RECORDS SUMMARY | 2024-10-22 20:42 | XMS_ITS | CONTINUITY OF CARE DOCUMENT ---
Author Name tracie hodges Address Unknown Organization [facility] Office Address [address] [place] [address] Phone [phone] Care Team Providers Care Detective Precinct Name Role Phone Sandip WILSON, Mohammad Unavailable Alphonso ALVAREZ MD, Miles Unavailable [phone] Alphonso ALVAREZ MD, Miles Unavailable PROBLEMS Condition Status Date Provider Notes Palpitations active Romeo Bryson INSURANCE PROVIDERS Payer name Policy type / Coverage type [place] [employer] party ID [facility] [id number] TREATMENT PLAN Date Name Complete Echo
--- OUTSIDE RECORDS SUMMARY | 2024-10-22 20:42 | XMS_ITS | Referral Summary ---
Author Organization [facility] Address [address] [place] [address] Care Team Providers Care Roving Or Yarn Color Checker Name Role Phone Derick Mittal MD Primary Care Provider Source Comments [facility],non-owned Affiliates and Associated Physician Practices is amultiple site organization consisting of ambulatory clinics and hospital sitesin [place], [place], [place] and [place]. This disclosure is being madepursuant to the Care Everywhere program and may not contain all information available regarding this patient. Last updated 18.[facility] Encounters Date Type Department Care Team Description 09/09/2024 Telephone [facility] - Endocrinology [address] [place] [address], [address] [address] Melissa Keller MD Medication Prior [...] 36.6 C (97.9 F) 07/06/2021 4:29 PM EXECUTIVE CHAIRMAN OF THE BOARD Respiratory Rate 17 04/17/2023 12:26 PM CDT [...] GENOTYPE 16,18/45 REFLEXED Routine 08/05/2023 9:04 AM EXECUTIVE CHAIRMAN OF THE BOARD Pap smear, as part of routine gynecological examination ENDOSCOPY, COLON, SCREENING Routine 04/17/2023 11:28 AM CDT Screening for colon cancer HEMOGLOBIN A1C - POINT OF CARE (AMB) Routine 01/14/2023 Type 2 diabetes mellitus without complication, without long-term current use of insulin (HCC) COMPREHENSIVE METABOLIC PANEL STAT 07/06/2021 4:44 PM EXECUTIVE CHAIRMAN OF THE BOARD from Last 3 Months or Most Recently [...] HPV GENOTYPE 16,18/45 REFLEXED (08/05/2023 9:04 AM EXECUTIVE CHAIRMAN OF THE BOARD) Human papillomavirus Genotype 16 Positive(A) Negative [facility] ACCOUNT BILL Human papillomavirus Genotype 18/45 Negative Negative [facility] ACCOUNT BILL 08/05/2023 9:04 AM EXECUTIVE CHAIRMAN OF THE BOARD 08/05/2023 Narrative [facility] ACCOUNT BILL - 08/14/2023 7:10 AM EXECUTIVE CHAIRMAN OF THE BOARD No. of containers..01 ThinPrep Vial Resulting Agency Comment Lab Testing performed at: [facility] [id number] Klever Humphrey MD LAB - MICROBIOLOGY O RDERABLES [facility] ACCOUNT BILL [address] [place] [address] * ENDOSCOPY, COLON, SCREENING (04/17/2023 11:28 AM CDT) Report Endoscopy POC _ Patient Name: Melissa Batres Procedure Date: 04/17/2023 11:28 AM Date of : 1975 Admit Type: Outpatient Age: 47 Gender: Female Ethnicity: Not or Race: Black or Attending MD: Morales Roblero MD, [id number] _ Procedure: Colonoscopy Indications: Screening for colorectal [...] screening purposes. Procedure Code(s): --- Professional --- 84948, Colonoscopy, flexible; diagnostic, including collection of specimen(s) by brushing or washing, when performed (separate procedure) --- Technical --- 10752, Colonoscopy, flexible; diagnostic, including collection of specimen(s) by brushing or washing, when performed (separate procedure) Diagnosis Code(s): --- Professional --- Z12.11, Encounter for screening for malignant neoplasm of colon --- Technical --- Z12.11, Encounter for screening for malignant neoplasm of colon CPT copyright 2020 [employer]. All rights reserved. The codes documented in this report are preliminary and upon client application support specialist review may be revised to meet current compliance requirements. Morales Roblero MD 04/17/2023 12:08:42 PM This report has been signed electronically. Number of Addenda: 0 Note Initiated On: 04/17/2023 11:28 AM [facility] 04/17/2023 11:2 8 AM CDT Morales Roblero MD GI PROCEDURE ORDERAB LES [facility] * HEMOGLOBIN A1C - POINT OF CARE (HgbA1C) (01/14/2023) Hemoglobin A1c POCT 6.5 % Expiration Date 09/28/24 Lot # [id number] QC Verified Yes Yes Blood BLOOD SPECIMEN / Unknown 01/14/2023 Melissa Keller MD LAB - POINT OF C ARE ORDERABLES * (ABNORMAL) COMPREHENSIVE METABOLIC PANEL (07/06/2021 4:44 PM EXECUTIVE CHAIRMAN OF THE BOARD) Glucose 640(HH) 70 - 105 mg/dL 07/06/2021 5:[address] [facility] Sodium 128(L) 136 - 145 mmol/L 07/06/2021 5:[address] [facility] Potassium 4.2 3.5 - 5.1 mmol/L 07/06/2021 5:[address] [facility] Chloride 97(L) 98 - 107 mmol/L 07/06/2021 5:[address] [facility] CO2 18(L) 23 - 31 mmol/L 07/06/2021 5:[address] [facility] Calcium 9.2 8.4 - 10.4 mg/dL 07/06/2021 5:[address] [facility] Anion Gap 13 8 - 18 mmol/L 07/06/2021 5:[address] [facility] BUN 13 7 - 18.7 mg/dL 07/06/2021 5:[address] [facility] Creatinine 1.45(H) 0.57 - 1.11 mg/dL 07/06/2021 5:[address] [facility] Alkaline Phosphatase 84 40 - 150 U/L 07/06/2021 5:[address] [facility] ALT 14 0 - 61 U/L 07/06/2021 5:[address] [facility] AST 14 5 - 34 U/L 07/06/2021 5:[address] [facility] Protein Total 8.0 6.4 - 8.3 gm/dL 07/06/2021 5:[address] [facility] Albumin 3.9 3.5 - 5.2 gm/dL 07/06/2021 5:[address] [facility] Bilirubin Total 0.6 0.2 - 1.2 mg/dL 07/06/2021 5:[address] [facility] eGFR by MDRD 39(L) >60 mL/min/1.7 3m2 07/06/2021 5:[address] [facility] eGFR by MDRD 47(L) >60 mL/min/1.7 3m2 07/06/2021 5:[address] [facility] Blood BLOOD SPECIMEN / Unknown Venipuncture / Unknown 07/06/2021 4:44 PM EXECUTIVE CHAIRMAN OF THE BOARD 07/06/2021 4:49 PM EXECUTIVE CHAIRMAN OF THE BOARD Dennise Maier PA-C LAB - CHEMISTRY OR DERABLES [facility] [address] [place] [address] from Last 3 Months or Most Recently Relevant to Health Maintenance Advance Directives * FULL RESUSCITATION (Latest Code Status on File) Date Activated Date Inactivated Comments 08/20/2011 2:41 PM 08/22/2011 2:48 AM Care Teams Roving Or Yarn Color Checker Relationship Specialty Start Date End Date Derick Mittal MD [address] [place] [address] PCP - General Internal Medicine 03/21/22
[2024-10-22 20:43] LABS: BEDSIDEPREGUCG Negative (Negative)
[2024-10-22] MEDS: SODIUM CHLORIDE 0.9% IV 1,000 ML 999 ML IV CONT (20:43)
--- OUTSIDE RECORDS SUMMARY | 2024-10-22 20:43 | XMS_ITS | Clinical Summary ---
Author Organization [facility] [place] [address] [facility] Address [address] [facility] [place] [address] Care Team Providers Care Bunch Breaker Name Role Phone Fatou Chowdhury Jun [employer]ETARY [employer] Unavailable [phone] Derick Mittal MD Primary Care Provide r [...] 09/14/2023 Assessment & Plan (09/14/2023 2:34 PM CLINICAL NEUROPSYCHOLOGIST): Patient has rotator cuff tendinitis of the [...] (06/05/2021): Added automatically from request for surgery [id number] COVID-19 virus infection 04/02/2021 Intramural leiomyoma of [...] Department Care Team Description 10/17/2024 Orders Only [facility] Virtual Care [address] [place] [phone] Bessie Moran NP 10/03/2024 Orders Only [facility] [employer] Care [address] [place] [phone] Bessie Moran NP 09/22/2024 10:45 AM CLINICAL NEUROPSYCHOLOGIST Office Visit [facility] Care at [address] [phone] David Yi NP COVID-19 (Primary Dx) 09/22/2024 Orders Only [facility] Virtual Care [address] [place] [phone] Bessie Moran NP from Last 3 Months [...] on file Legal Sex Female 7:52 PM CLINICAL NEUROPSYCHOLOGIST Gender Identity Female 06/04/2021 10:01 PM CDT Sexual Orientation Straight 06/04/2021 10 :01 PM CDT Obstetrics History Last Filed Vital Signs Vital Sign Reading Time Taken Comments Blood Pressure 132/86 09/22/2024 9:41 AM CLINICAL NEUROPSYCHOLOGIST Pulse 106 09/22/2024 9:41 AM CLINICAL NEUROPSYCHOLOGIST Temperature 36.9 C (98.4 F) 09/22/2024 9:41 AM CLINICAL NEUROPSYCHOLOGIST Respiratory Rate 20 09/22/2024 9:41 AM CLINICAL NEUROPSYCHOLOGIST Oxygen Saturation 98% 09/22/2024 9:41 AM CLINICAL NEUROPSYCHOLOGIST Inhaled Oxygen Concentration - - Weight 100.7 kg (222 lb) 09/22/2024 9:41 AM CLINICAL NEUROPSYCHOLOGIST Height 167.6 cm (5' 6 ) 09/22/2024 9:41 AM CLINICAL NEUROPSYCHOLOGIST Body Mass Index 35.83 09/22/2024 9:41 AM CLINICAL NEUROPSYCHOLOGIST Plan of Treatment Health Maintenance Due Date [...] history exists Medical Devices Implanted Type Area Electron Beam Welder Setter Device Identifier Shelf Expiration Date Model / Serial / Lot [employer] [id number] Device Closure Vascade Od5 Fr Femoral Artery - [id number] - [id number] Implanted:Qty : 1 on 07/02/2021 by Devon Macias MD at [facility] Collagen Left: Femoral [employer] 02/25/2023 700-500DX -05U / [id number] [id number] / [id number] [employer] [id number] Device Closure Vascade Od5 Fr Femoral Artery - [id number] - [id number] Implanted:Qty : 1 on 07/02/2021 by Devon Macias MD at [facility] Collagen Right: Femoral [employer] 09/02/2022 700-500DX -05U / [id number] / [id number] [employer] [id number] Device Closure Vascade Od5 Fr Femoral Artery - [id number] - [id number] Implanted:Qty : 1 on 07/02/2021 by Devon Macias MD at [facility] Collagen Left: Femoral [employer] 02/25/2023 700-500DX -05U / [id number] 720A / [id number] 720A [employer] [id number] System 6-12fr Mvp Venous Closure Vascade - [id number] - [id number] Implanted:Qty : 1 on 07/02/2021 by Devon Macias MD at [facility] Collagen Right: Femoral [employer] 04/11/2023 800-612C- 10U / [id number] 07B / [id number] [id number] [employer] [id number] System 6-12fr Mvp Venous Closure Vascade - [id number] - [id number] Implanted:Qty : 1 on 07/02/2021 by Devon Macias MD at [facility] Collagen Right: Femoral [employer] 04/11/2023 800-612C- 10U / [id number] 07B / [id number] [id number] Procedures Procedure Name Priority Date/Time Associated Diagnosis Comments POCT RAPID STREP Routine 09/22/2024 10:0 1 AM CLINICAL NEUROPSYCHOLOGIST COVID-19 POC INFLUENZA A/B, COVID-19 ANTIGEN Routine 09/22/2024 9:58 AM CLINICAL NEUROPSYCHOLOGIST COVID-19 BASIC METABOLIC PANEL Routine 06/05/2021 12:56 PM CDT Paroxysmal SVT (supraventricular tachycardia) POCT LIPID PANEL Routine 05/15/2021 4:26 PM CDT Lipid screening HEMOGLOBIN A1C Routine 12/20/2017 8:00 AM CDT from Last 3 Months or Most Recently Relevant to Health Maintenance Results * POCT rapid strep A (09/22/2024 10:01 AM CLINICAL NEUROPSYCHOLOGIST) Pathologist [facility] Rapid Strep A, POC Negative Negative Swab 09/22/2024 10:0 1 AM CLINICAL NEUROPSYCHOLOGIST David Yi NP POINT OF CARE TEST ORDERABLES F inal Result * (ABNORMAL) POC Influenza A/B, COVID-19 antigen (09/22/2024 9:58 AM CLINICAL NEUROPSYCHOLOGIST) Pathologist [facility] Influenza A Ag, POC Negative Negative [facility] Influenza B Ag, POC Negative Negative [facility] COVID-19 Ag POC Positive(A) Presumptive Negative, Invalid [facility] Nasal 09/22/2024 9:58 AM CLINICAL NEUROPSYCHOLOGIST David Yi NP POINT OF CARE TEST ORDERABLES F inal Result Performing Organization Address [facility] Co de Phone Number [facility] [address] * (ABNORMAL) Basic metabolic panel (06/05/2021 12:56 PM CDT) [facility] Glucose 211(H) 65 - 99 mg/dL [facility] Comment: Fasting reference interval For someone without known diabetes, a glucose value >125 mg/dL indicates that they may have diabetes and this should be confirmed with a follow-up test. BUN 13 7 - 25 mg/dL [facility] Creatinine 0.96 0.50 - 1.10 mg/dL [facility] eGFR NON-AFR. SLOVENIAN 71 > OR = 60 mL/min/1. 73m2 [facility] EGFR 82 > OR = 60 mL/min/1. 73m2 [facility] BUN/creat ratio NOT APPLICABLE 6 - 22 (calc) [facility] Sodium 136 135 - 146 mmol/L [facility] Potassium, pl 4.6 3.5 - 5.3 mmol/L [facility] Chloride 100 98 - 110 mmol/L [facility] CO2 29 20 - 32 mmol/L [facility] Calcium 9.4 8.6 - 10.2 mg/dL [facility] Blood specimen (specimen) 06/05/2021 12:56 PM CDT 06/05/2021 12:56 PM CDT Devon Macias MD LAB BLOOD ORDERABLES Final Result Performing Organization Address City/[facility]/ZIP Co de Phone Number [facility] [address] [phone] * POCT lipid panel (05/15/2021 4:26 PM [...] last revised on 2016 Testing performed by: [facility] [place] [address] Estimated Average Glucose 252 mg/dL [facility] Comment:Testing performed by : [facility], [address] [place] [address] Blood specimen (specimen) 12/20/2017 8:00 AM CDT 12/20/2017 2:05 PM CDT Narrative [facility] - 12/20/2017 2:30 PM CDT Bessie Moran NP LAB BLOOD ORDERABLES Rossy l Result [facility] [address] Department of Laboratories [place], [place] [id number] from Last 3 Months or Most Recently Relevant to Health Maintenance Additional Health Concerns Infection Onset Date Last Indicated COVID: Recovered Comment:Added based on recent COVID infection. 10/02/2024 025 Insurance [facility] Care Teams Bunch Breaker Relationship Specialty Start Date End Date Derick Mittal MD [facility] [place] [address] PCP - General Internal Medicine 08/01/21 Fatou Chowdhury NP Nurse Practitioner Cardiology 07/02/21
[2024-10-22 22:06] LABS: Glucose Point of Care 380 mg/dl (65-105)
[2024-10-22 23:15] VITALS: BP 140/92; PULSE 71; RESP 16; O2SAT 100
== END 2024-10-22 23:16 | disposition home or self-care (01) ==
PROVIDERS: Emergency Provider Physician Assistant
DX: E11.65 Type 2 diabetes mellitus with hyperglycemia (principal); E11.42 Type 2 diabetes mellitus with diabetic polyneuropathy; Z79.85 Long-term (current) use of injectable non-insulin antidiabetic drugs
CPT/HCPCS: 36415; 80053; 81003; 81025; 82010; 82948; 83735; 84100; 85025; 96360; 99283; J7030

== ENCOUNTER 2025-08-09 13:40 | Emergency (ER) | payer BC, SELFPAY ==
[2025-08-09 13:55] VITALS: BP 142/93; PULSE 127; RESP 16; TEMP 37.7; O2SAT 97
[2025-08-09 14:20] LABS: EDCOVIDSCREEN Negative (Negative); EDINFLUASCREEN Positive (Negative); EDINFLUBSCREEN Negative (Negative); EDSTREPNEGPOS1 Negative (Negative)
--- NOTE | 2025-08-09 14:40 | ED_ITS ---
HPI - URI/Sore Throat General Chief Complaint: Upper Respiratory Infection Stated Complaint: flu/covid symptoms Time Seen by Provider: 08/09/25 14:40 Source: patient Mode of arrival: ambulatory Limitations: no limitations History of Present Illness HPI Narrative: 50 yo F presents with c/o cough, nasal congestion, fatigue, fever for 2 days. No nausea vomiting diarrhea. Not taking any xogp-yan-gyxpqbc medications to treat symptoms. All systems reviewed and negative except as noted above. Related Data Home Medications ?Medication ?Instructions ?Recorded ?Confirmed ?Last Taken ?Type gabapentin 100 mg capsule 200 mg PO HS 04/10/21 Unknown History semaglutide 0.25 mg or 0.5 mg (2 0.25 mg subcut WEEKLY 04/10/21 04/10/21/12/28 History mg/1.5 mL) subcutaneous pen injector (Ozempic) chlorthalidone 25 mg tablet mg 08/09/25 Unknown Histo ry dapagliflozin propanediol 10 mg mg 08/09/25 Unknown H istory tablet (Farxiga) insulin glargine 100 unit/mL (3 unit subcut 08/09/25 Unknown History mL) subcutaneous pen (Basaglar KwikPen U-100 Insulin) tirzepatide 5 mg/0.5 mL mg subcut 08/09/25 Unknown History subcutaneous pen injector (Mounjaro) valsartan 80 mg tablet mg 08/09/25 Unknown History Allergies Allergy/AdvReac Type Severity Reaction Status Date / Time No Known Allergies Allergy Verified 08/09/25 13:58 [facility] Past Medical History Medical History Diabetes mellitus type 2, controlled Diabetic neuropathy Healthy female adult Supraventricular tachycardia Surgical History Surgical History H/O tubal ligation Family History Family History Father Cerebrovascular accident Heart attack Hypertension History of open heart surgery Mother Hypertension Diabetes mellitus Social History Social History Smoking status: Never smoker Alcohol intake: current Drinks per week: 1 Substance use: never Substance use type: does not use Spiritual care concerns: No Comments At time of signature, agree with nursing past medical, surgical, social and family history. There is no relevant family history pertinent to the presenting complaint. Exam Narrative: GENERAL: This is a well-nourished, well-developed patient, ill-appearing but no acute distress. HEAD: normocephalic, atraumatic. EYES: PERRL. Sclera clear/white. Vision is grossly intact. EARS: External ears normal, auditory canals clear and without drainage, TMs nor mal without perforation. Hearing grossly intact. NOSE: External nose normal with Clear nasal drainage THROAT: Mucous membranes moist, posterior pharynx clear. NECK: Neck supple, non-tender without lymphadenopathy, masses or thyromegaly. CARDIOVASCULAR: Regular rate and rhythm without murmurs, gallops, or rubs. RESPIRATORY: Clear to auscultation. Breath sounds equal bilaterally. No wheezes, rales, or rhonchi. SKIN: warm, Dry, intact with no suspicious lesions or rash, good texture and turgor. NEURO: awake, alert, and oriented to person, place and time. There were no obvious focal neurologic abnormalities. EXTREMITIES: No joint tenderness, effusion, or edema noted. Course Course Level of Care: Express Care Visit Vital Signs Vital signs: Vital Signs Temperature 37.7 C H 08/09/25 13:55 Pulse Rate 127 H 08/09/25 13:55 Respiratory Rate 16 08/09/25 13:55 Blood Pressure 142/93 H 08/09/25 13:55 Pulse Oximetry 97 08/09/25 13:55 Temperature 37.7 C H 08/09/25 13:55 Pulse Rate 127 H 08/09/25 13:55 Respiratory Rate 16 08/09/25 13:55 Blood Pressure 142/93 H 08/09/25 13:55 Pulse Oximetry 97 08/09/25 13:55 reviewed MDM MDM Narrative Medical decision making narrative: positive influenza a. Discussed results with patient. Will treat with Tamiflu. Alert, nontoxic. Differential Diagnosis Differential Diagnosis: Differential diagnostic considerations for upper respiratory infection include upper respiratory infection, croup, otitis media, sinusitis, viral infection, bronchitis, influenza, pharyngitis, strep, uvulitis.? Lab Data Labs: Lab Results 08/09/25 Range/Units 14:19 POC Influenza A Ag Positive (Negative) POC Influenza B Ag Negative (Negative) POC SARS CoV-2 Ag Negative (Negative) POC Grp A Strep Screen Negative (Negative) Discharge Plan Discharge Clinical Impression: Influenza A Patient Disposition: Home Condition: Stable Instructions: Influenza (ED) Additional Instructions: Your influenza test was positive today. Influenza is a virus and symptoms may last 10-14 days. Take medication as prescribed. Taking hsyj-zph-zlculut medication to treat her symptoms such as DayQuil NyQuil cold and flu. Take as directed on packaging. Drink at least 64 oz of water a day. See your doctor if not improving. Patient Language: Micronesian Prescriptions: New oseltamivir [Tamiflu] 75 mg capsule 75 mg PO Q12H 5 Days Qty: 10 0RF No Action valsartan 80 mg tablet chlorthalidone 25 mg tablet insulin glargine [Basaglar KwikPen U-100 Insulin] 100 unit/mL (3 mL) insulin pen SUBCUT dapagliflozin propanediol [Farxiga] 10 mg tablet Mounjaro 5 mg/0.5 mL pen injector SUBCUT gabapentin 100 mg capsule 200 mg PO HS Ozempic 0.25 mg or 0.5 mg(2 mg/1.5 mL) pen injector 0.25 mg SUBCUT WEEKLY Rx Instructions: Patient takes on thursday metoprolol tartrate 25 mg Tablet 25 mg PO Q12HR PRN (Reason: palpitations) Qty: 30 0RF Follow-up/Referrals: PHYSICIAN,CARGO SERVICE SUPERVISOR [Primary Care Provider, Internal Medicine] Time of Disposition: 14:44
== END 2025-08-09 14:47 | disposition home or self-care (01) ==
PROVIDERS: Emergency Provider Nurse Practitioner Family
DX: J10.1 Influenza due to other identified influenza virus with other respiratory manifestations (principal); Z20.822 Contact with and (suspected) exposure to COVID-19; E11.42 Type 2 diabetes mellitus with diabetic polyneuropathy; Z79.4 Long term (current) use of insulin; Z79.85 Long-term (current) use of injectable non-insulin antidiabetic drugs
CPT/HCPCS: 87081; 87426; 87804; 87880; 99213; G0463